=== PATIENT | male | born 1945 | race Caucasian/White ===

== ENCOUNTER 2016-05-01 20:59 | Observation (INO) ==
[2016-05-01] MEDS ORDERED: Ipratropium/Albuterol Neb 3 ML IH ONE (21:10)
[2016-05-01] MEDS ORDERED: Aspirin 81 MG TAB.CHEW PO ONE (21:11)
--- NOTE | 2016-05-01 21:12 | Emergency Department Note ---
Disposition Clinical Impression: Acute exacerbation of chronic obstructive airways disease Chest pain Qualifiers: Chest pain type: unspecified Qualified Code(s): R07.9 - Chest pain, unspecified Disposition: Admitted As Inpatient Condition: Good Time of Disposition: 23:04 SOB HPI - General Chief Complaint: ED Shortness of Breath/Dyspnea Stated Complaint: COPD Time Seen by Provider: 05/01/16 21:03 Source: EMS Limitations: no limitations Nursing Notes Reviewed: Yes Vital Signs Reviewed: Yes - History of Present Illness 70 old male history of CAD status post stents 1, COPD oxygen dependent on 2 L at baseline, presents with shortness of breath and chest pain. Patient chest pain approximately 2 hours prior to arrival in his midchest 5 out of 10 substernal nonradiating pressure. Patient reports that he got an albuterol treatment and 125 of Solu-Medrol in route and this made his breathing better. He does have a cough, and some shortness of breath. Recent admissions to the hospital, his last chest pain workup and stress test was one year ago. patient denies fever or chills, denies productive cough, Pt Subjective Complaint: shortness of breath Onset (ago): hour(s) (2) Severity: moderate Consistency/Duration: intermittent Improves with: oxygen Worsens with: nothing Known history of: COPD, congestive heart failure Associated symptoms: Reports: chest pain, wheezing, orthopnea. Denies: pain with inspiration, fever, cough, sputum production - Related Data Home Medications Medication Instructions Recorded Confirmed Aspirin 81 mg PO DAILY 10/05/14 05/02/16 Bumetanide [Bumex] 0.5 mg PO BID 10/05/14 05/02/16 Clopidogrel [Plavix] 75 mg PO DAILY 10/05/14 05/02/16 Isosorbide MONOnitrate (24 HR) 60 mg PO DAILY 10/05/14 05/02/16 [Imdur] Losartan [Cozaar] 25 mg PO DAILY 10/05/14 05/02/16 Metoprolol [Lopressor] 25 mg PO BID 10/05/14 05/02/16 Nitroglycerin 0.4 mg SL Q5MIN PRN 10/05/14 05/02/16 OxyCODONE/APAP 10/325 [Percocet 1 each PO Q6HR PRN 10/05/14 05/02/16 10/325] Pravastatin Sodium [Pravachol] 40 mg PO DAILY 10/05/14 05/02/16 Albuterol Sulfate [Proair Hfa] 2 puff IH BID 06/17/15 05/02/16 Budesonide/Formoterol 160/4.5 2 puff ID BID 06/17/15 05/02/16 [Symbicort 160/4.5] Previous Rx's Medication Instructions Recorded Aspirin 81 mg PO DAILY tab.chew 05/03/16 Ipratropium/Albuterol Neb [Duoneb] 3 ml IH [id number] PRN #0 inhsol 05/03/16 PredniSONE 10 mg PO DAILY #33 tablet 05/03/16 Allergies Allergy/AdvReac Type Severity Reaction Status Date / Time furosemide [From Lasix] Allergy Chest Pain Verified 05/02/16 09:27 hydrochlorothiazide Allergy Chest Pain Verified 05/02/16 09:27 Sulfa (Sulfonamide Allergy Hives Verified 05/02/16 09:27 Antibiotics) Hydromorphone [From Dilaudid] AdvReac Nausea Verified 05/02/16 09:27 All systems ED: reviewed and negative except as stated. Constitutional: Denies: fever, chills ENT ED: Denies: ear pain Cardiovascular: Reports: as per HPI, chest pain, dyspnea on exertion. Denies: palpitations Respiratory: Reports: dyspnea. Denies: cough Gastrointestinal: Denies: abdominal pain, nausea, vomiting Genitourinary: Denies: urgency, dysuria Musculoskeletal: Denies: back pain, neck pain Past Medical History - Past Medical History Attestation: Yes The following information was validated with the patient. Source: patient Medical history: Reports: COPD, coronary artery disease, GERD, hyperlipidemia, hypertension, myocardial infarction, pulmonary embolus Surgical history: Reports: angioplasty/stent Psychiatric history: Reports: no psych history - Social History Smoking Status: Current every day smoker Smokeless Tobacco Status: No Alcohol use: Reports: none Drug use: Reports: none Physical Exam Constitutional: alert and oriented, in NAD, mild hypoxia on vital review Neck: normal inspection, neck is supple, trachea midline Resp: Pursed lipped breathing and prolonged expiration phase, dimished aeration CV: RRR, no m/g/r, +2 pitting edema. GI: normal inspection, Soft, NTND, BS present Back: normal inspection, no tenderness to palpation Neuro: A&O3, no gross motor or sensory deficits bilaterally MSK: normal inspection, bilateral UE and LE with normal ROM Psych: normal mood, normal affect Skin: No rashes, skin warm, dry, intact - General Limitations: no limitations General appearance: alert Course Course Narrative: 70-year-old male with CHF and COPD likely exacerbation, also chest pain or rest 2 hours ago. Given that he is high risk of heart score of 5, likely admission for chest pain rule out to EKGs that shows no acute changes from baseline EKG - Reevaluation(s) Reevaluation #1: Patient's pain is improved, patient with concerns for COPD exacerbation also with chest pain in the setting of CAD history, admitted to hospital service Dr. Montrell Cisneros hemodynamically stable at time of ED disposition. Time: 23:04 Vital Signs Temperature 98.5 F 05/01/16 21:01 Pulse Rate 81 05/01/16 21:01 Respiratory Rate 18 05/01/16 21:01 Blood Pressure 168/82 05/01/16 21:01 O2 Sat by Pulse Oximetry 97 05/01/16 21:01 Temperature 97.4 F L 05/03/16 11:20 Pulse Rate 59 05/03/16 11:20 Respiratory Rate 16 05/03/16 11:20 Blood Pressure 122/67 05/03/16 11:20 O2 Sat by Pulse Oximetry 97 05/03/16 11:20 Oxygen Delivery Oxygen Delivery Nasal Cannula Shortness of Breath/Dyspnea - [facility] Narrative Medical decision making narrative: 70-year-old male with history of CAD chest pain at rest 1 hour prior to arrival admitted to medicine service for chest pain rule out and COPD exacerbation - Differential Diagnosis Likely: acute exacerbation of chronic obstructive airways disease, congestive heart failure - Medical Records Medical records reviewed: Yes I reviewed the patient's medical records. - Lab Data Lab results reviewed: Yes I reviewed the patient's lab results. Result diagrams: 05/03/16 03:52 05/03/16 03:52 Lab Results 05/01/16 05/01/16 05/01/16 Range/Units 21:27 21:27 21:27 WBC 7.8 (4.3-11.1) K/mcL RBC 4.52 (4.19-5.50) M/mcL Hgb 14.1 (12.9-16.9) g/dL Hct 42.2 (37.5-50.1) % MCV 93.4 (83.0-100.0) fL MCH 31.2 (28.0-33.3) pg MCHC 33.4 (31.6-35.5) g/dL RDW 12.4 (11.5-14.5) % Plt Count 170 (140-400) K/mcL MPV 10.1 (9.4-12.4) fL Immature Gran % 0.5 (0-4) % Seg Neutrophils % 58.1 % Lymphocytes % 28.6 % Monocytes % 8.8 % Eosinophils % 3.4 % Basophils % 0.6 % Neutrophils # 4.5 (1.6-8.9) K/mcL Lymphocytes # 2.2 (0.6-4.6) K/mcL Monocytes # 0.7 (0.0-1.3) K/mcL Eosinophils # 0.3 (0.0-0.6) K/mcL Basophils # 0.1 (0.0-0.2) K/mcL PT 10.9 (9.4-12.1) Seconds INR 1.0 APTT 31.4 (26.0-36.0) Seconds Sodium 139 (136-145) mEq/L Potassium 3.6 (3.5-4.5) mEq/L Chloride 104 (98-109) mEq/L Carbon Dioxide 25 (19-29) mEq/L BUN 14 (8-26) mg/dL Creatinine 1.06 (0.72-1.25) mg/dL Est GFR ( Amer) > 60 (> 60) Est GFR (Non-Af Amer) > 60 (> 60) BUN/Creatinine Ratio 13 (6-26) Glucose 106 H (70-99) mg/dL Calculated Osmolality 289 (280-300) Calcium 9.3 (8.6-10.8) mg/dL Troponin I (0-0.03) ng/mL B-Natriuretic Peptide (0-100) pg/mL 05/01/16 05/01/16 Range/Units 21:27 21:27 WBC (4.3-11.1) K/mcL RBC (4.19-5.50) M/mcL Hgb (12.9-16.9) g/dL Hct (37.5-50.1) % MCV (83.0-100.0) fL MCH (28.0-33.3) pg MCHC (31.6-35.5) g/dL RDW (11.5-14.5) % Plt Count (140-400) K/mcL MPV (9.4-12.4) fL Immature Gran % (0-4) % Seg Neutrophils % % Lymphocytes % % Monocytes % % Eosinophils % % Basophils % % Neutrophils # (1.6-8.9) K/mcL Lymphocytes # (0.6-4.6) K/mcL Monocytes # (0.0-1.3) K/mcL Eosinophils # (0.0-0.6) K/mcL Basophils # (0.0-0.2) K/mcL PT (9.4-12.1) Seconds INR APTT (26.0-36.0) Seconds Sodium (136-145) mEq/L Potassium (3.5-4.5) mEq/L Chloride (98-109) mEq/L Carbon Dioxide (19-29) mEq/L BUN (8-26) mg/dL Creatinine (0.72-1.25) mg/dL Est GFR ( Amer) (> 60) Est GFR (Non-Af Amer) (> 60) BUN/Creatinine Ratio (6-26) Glucose (70-99) mg/dL Calculated Osmolality (280-300) Calcium (8.6-10.8) mg/dL Troponin I 0.00 (0-0.03) ng/mL B-Natriuretic Peptide 38 (0-100) pg/mL - Radiology Data Radiology results reviewed: Yes I reviewed the patient's radiology results. Chest X-Ray 05/01/16 21:10 IMPRESSION: No acute cardiopulmonary disease. D/ / Ramone Joy MD / Ramone Joy MD Interpreting Provider: Ramone Joy MD - EKG Data EKG attestation: Yes I reviewed and interpreted this EKG. EKG shows normal: Reports: sinus rhythm Rate: Reports: normal (77 bpm ND 121 QRS 94 QTc 416) ST segment depression in: Reports: II When compared to previous EKG there are: no significant changes Interpretation: Reports: unchanged when compared to prior tracing (date) ( March 2012) Attestation Statement - Attestation Attestation: I examined this patient and my medical decision-making was reviewed with the [employer]/PA/Advanced Practice Nurse/Resident Physician. I agree with the documented findings, disposition and treatment plan as described except to the extent set forth below. 70 yo male presents with difficulty breathing and chest pain. +similar to previous COPD but had chest pain prior to arrival. PT states breathing and chest pain improved after breathing treatment by EMS and in ED. +diffuse wheezing with decreased air flow in all lung ramirez. initial trop negative and ECG did not have evidence of STEMI. Pt to be admitted for further care. Heart Score - Score History: Moderately Suspicious EKG: Non Specific repolarisation Disturbance Age: Greater than 65 Risk Factors: Equal/Greater than 3 risk factor or history of atherosclerotic disease Troponin: Less than normal limit HEART Score Total: 6
[2016-05-01 21:43] LABS: Prothrombin Time 10.9 Seconds (9.4-12.1)
[2016-05-01 21:45] LABS: Activated Partial Thrombo Time 31.4 Seconds (26.0-36.0)
[2016-05-01 21:46] LABS: Basophils # 0.1 K/mcL (0.0-0.2); Basophils % 0.6 %; Eosinophils # 0.3 K/mcL (0.0-0.6); Eosinophils % 3.4 %; Hematocrit 42.2 % (37.5-50.1); Hemoglobin 14.1 g/dL (12.9-16.9); Immature Granulocytes % 0.5 % (0-4); Lymphocytes # 2.2 K/mcL (0.6-4.6); Lymphocytes % 28.6 %; Mean Corpuscular HGB Conc 33.4 g/dL (31.6-35.5); Mean Corpuscular Hemoglobin 31.2 pg (28.0-33.3); Mean Corpuscular Volume 93.4 fL (83.0-100.0); Mean Platelet Volume 10.1 fL (9.4-12.4); Monocytes # 0.7 K/mcL (0.0-1.3); Monocytes % 8.8 %; Neutrophils # 4.5 K/mcL (1.6-8.9); Platelet Count 170 K/mcL (140-400); Red Blood Count 4.52 M/mcL (4.19-5.50); Red Cell Distribution Width 12.4 % (11.5-14.5); Segmented Neutrophils % 58.1 %
[2016-05-01 21:51] LABS: BUN/Creatinine Ratio 13 (6-26); Blood Urea Nitrogen 14 mg/dL (8-26); Calcium 9.3 mg/dL (8.6-10.8); Carbon Dioxide 25 mEq/L (19-29); Chloride 104 mEq/L (98-109); Glucose 106 mg/dL (70-99); Osmolality,Calculated 289 (280-300); Potassium 3.6 mEq/L (3.5-4.5); Sodium 139 mEq/L (136-145); eGFR For African Americans > 60 (> 60); eGFR For Non-African Americans > 60 (> 60)
--- NOTE | 2016-05-02 04:42 | Internal Med History&Physical ---
Date of Encounter: 05/02/16 Time of Encounter: 04:37 Assessment and Plan (1) Chest pain Current visit: No Status: Acute Atypical chest pain, negative troponins upon admission. We will follow trend of cardiac biomarkers. Continue with telemetry monitoring. Patient with significant cardiac history, status post a stent in LAD. Cardiology will be consulted for assistance. Qualifiers: Chest pain type: unspecified Qualified Code(s): R07.9 - Chest pain, unspecified (2) CAD (coronary artery disease) Current visit: No Status: Acute Qualifiers: Coronary Disease-Associated Artery/Lesion type: [place] artery [place] vs. transplanted heart: [place] heart Associated angina: with stable angina Qualified Code(s): I25.119 - Atherosclerotic heart disease of [place] coronary artery with unspecified angina pectoris (3) COPD (chronic obstructive pulmonary disease) Current visit: No Status: Acute Qualifiers: COPD type: emphysema Emphysema type: unspecified Qualified Code(s): J43.9 - Emphysema, unspecified (4) HTN (hypertension) Current visit: No Status: Chronic Qualifiers: Hypertension type: essential hypertension Qualified Code(s): I10 - Essential (primary) hypertension (5) Diabetes Current visit: No Status: Chronic Monitor fingerstick. Insulin therapy. 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 Rothman is a 71 year old male with past medical history of COPD on long-term oxygen therapy, hypertension, coronary artery disease S/P stent in LAD, chronic active smoker. Patient presented to the emergency department complaining of sudden onset substernal discomfort. Patient states that he was ready to without something to eat, when all of a sudden had a funny feeling in his chest , he described it as if something is stuck in his upper chest and his throat. He called his and decided to come to the emergency department. Upon admission to the ER his heart rate was 78/m, respiratory rate 18 per minute, blood pressure was 111/66, oxygen saturation was 93% on 2 L/m. Initial blood work revealed a terrific, 7.8, hemoglobin 14.1, hematocrit 42.2, platelet count 170,000. Sodium 139, potassium 2.6, chloride 104, bicarbonate 25, BUNs 14, creatinine 1.06, glucose 106. Troponin was 0.030, brain atretic peptide was 38 , chest x-ray was unremarkable. His last echo was done in June 2015, EF of 50%. The patient was admitted for further management and workup. Upon my encounter with the patient's was otherwise asymptomatic and he was breathing with nasal cannula. He follows up with her yearly with Dr. Rothman. Past Med Surg Social Fam HX - Past Medical History Medical history: COPD, coronary artery disease, GERD, hyperlipidemia, hypertension, myocardial infarction, pulmonary embolus Psychiatric history: no psych history - Past Surgical History Surgical History: angioplasty/stent - Social History Smoking Status: Current every day smoker Smokeless Tobacco Status: No Alcohol use: none Drug use: none - Family History Mother Living Status: Hx Family Cardiac Disorders: No Hx Family Respiratory Disorders: Yes Hx Family Cancer: No Hx Family GI Disorders: No Hx Family Endocrine Disorder: No Hx Family Neuromuscular Disorders: No Hx Family Neurologic Disorders: Yes Hx Family HEENT Disorders: No Hx Family Autoimmune Disorders: No Father Living Status: Hx Family Cardiac Disorders: Yes Hx Family Respiratory Disorders: No Hx Family Cancer: No Hx Family GI Disorders: Yes Hx Family Endocrine Disorder: Yes Hx Family Neuromuscular Disorders: No Hx Family Neurologic Disorders: No Hx Family HEENT Disorders: No Hx Family Autoimmune Disorders: No Internal Medicine - H&P: Meds Aspirin 81 mg PO DAILY 10/05/14 [History] Bumetanide [Bumex] 0.5 mg PO BID 10/05/14 [History] Clopidogrel [Plavix] 75 mg PO DAILY 10/05/14 [History] Isosorbide MONOnitrate (24 HR) [Imdur] 60 mg PO DAILY 10/05/14 [History] Losartan [Cozaar] 25 mg PO DAILY 10/05/14 [History] Metoprolol [Lopressor] 25 mg PO BID 10/05/14 [History] Nitroglycerin 0.4 mg SL Q5MIN PRN 10/05/14 [History] OxyCODONE/APAP 10/325 [Percocet 10/325] 1 each PO Q6HR PRN 10/05/14 [History] Pravastatin Sodium [Pravachol] 40 mg PO DAILY 10/05/14 [History] Albuterol Sulfate [Proair Hfa] 2 puff IH BID 06/17/15 [History] Budesonide/Formoterol 160/4.5 [Symbicort 160/4.5] 2 puff ID BID 06/17/15 [ History] Allergies furosemide [From Lasix] Allergy (Verified 06/17/15 16:54) Chest Pain hydrochlorothiazide Allergy (Verified 06/17/15 16:54) Chest Pain Sulfa (Sulfonamide Antibiotics) Allergy (Verified 06/17/15 16:54) Hives Hydromorphone [From Dilaudid] Adverse Reaction (Verified 09/22/14 11:13) Nausea All Systems PM: A 10-system review of systems was performed and is negative for pertinent findings except as documented above in the HPI. - Constitutional Constitutional: as per HPI, no chills, no fever(s), no night sweats - EENT Eyes: as per HPI, no change in vision, no discharge, no pain, no photophobia Ears: as per HPI, no ear discharge, no ear pain, no tinnitus Nose, mouth and throat: as per HPI, no dysphagia, no nasal discharge, no neck pain, no sore throat - Breasts Breasts: as per HPI - Cardiovascular Cardiovascular ROS IM: as per HPI, no chest pain, no diaphoresis, no dyspnea, no lightheadedness, no palpitations, no syncope - Respiratory Respiratory: as per HPI, no cough, no dyspnea, no wheezing, no excessive phlegm production - Gastrointestinal Gastrointestinal: as per HPI, no abdominal pain, no diarrhea, no hematemesis, no hematochezia, no melena, no nausea, no vomiting - Genitourinary Genitourinary ROS male: as per HPI - Musculoskeletal Musculoskeletal ROS IM: as per HPI, no numbness, no tingling - Integumentary Integumentary IM: as per HPI, no rash, no unusual bruising - Neurological Neurological ROS: as per HPI, no confusion, no convulsions, no focal weakness, no numbness, no tingling, no tremor(s) - Psychiatric Psychiatric: as per HPI - Endocrine Endocrine IM: as per HPI - Hematologic/Lymphatic Hematologic/Lymphatic: as per HPI, no easy bruising - Allergic/Immunologic Allergic/Immunologic: as per HPI - Constitutional Vitals: Temp Pulse Resp BP Pulse Ox 98.1 F 80 15 151/85 97 05/02/16 03:24 05/02/16 03:24 05/02/16 03:24 05/02/16 03:24 05/02/16 03:24 General appearance: Present: cooperative, A&O X 3, pleasant, obese Exam: breathing with a nasal cannula - Head Head exam: Present: atraumatic, normocephalic - Eye Eye exam: Present: PERRL, conjuntiva pink, sclera anicteric Pupils: Present: PERRL - Neck Neck exam general surgery: Present: supple, trachea midline. Absent: lymphadenopathy - Respiratory Respiratory exam: Present: decreased breath sounds. Absent: accessory muscle use, rales, rhonchi, wheezes - Cardiovascular Cardiovascular exam: Present: RRR, +S1, +S2. Absent: diastolic murmur, gallop, rubs, systolic murmur - GI/Abdominal GI/Abdominal exam: Present: normal bowel sounds, soft, no peritoneal signs. Absent: distended, tenderness - Extremities Exam Extremities exam: Present: warm, radial pulses palpable and symetrical. Absent : calf tenderness, cyanotic, pedal edema - Neurological Exam Neurological exam: Present: CN II-XII intact, oriented X3, no focal deficits. Absent: pronater drift, facial droop, speech deficit - Skin Skin exam: Present: dry, intact Internal Med - H&P Results - Labs CBC & Chem 7: 05/01/16 21:27 05/01/16 21:27
[2016-05-02] MEDS ORDERED: Naloxone 0.4 MG/ML INJ IVP PRN (04:44)
[2016-05-02] MEDS ORDERED: Acetaminophen 325 MG TABLET PO PRN (04:44)
[2016-05-02] MEDS ORDERED: *HR* Dextrose 50 % in Water (Syg) 50 ML SYRINGE IVP PRN (04:46)
[2016-05-02] MEDS ORDERED: D5% in Water 1,000 ML IVC PRN (04:46)
[2016-05-02] MEDS ORDERED: Dextrose Gel 15 GM PO PRN ×2 (04:46)
[2016-05-02] MEDS ORDERED: Nitroglycerin 0.4 MG TAB.SUBL SL PRN (04:46)
[2016-05-02] MEDS: *HR* Heparin 5,000 UNIT/ML VIAL SQ SCH ×2 (06:27→18:21)
[2016-05-02] MEDS: Insulin LISPRO 300 UNITS/3 ML VIAL SQ SCH ×2 (08:28→12:22)
[2016-05-02] MEDS ORDERED: Ipratropium/Albuterol Neb 3 ML IH PRN (11:01)
[2016-05-02] MEDS: Isosorbide MONOnitrate (24 HR) 60 MG TAB.ER.24H PO SCH (12:22)
[2016-05-02] MEDS: Aspirin 81 MG TAB.CHEW PO SCH (12:22)
--- NOTE | 2016-05-02 19:12 | Internal Med Progress Note ---
Date of Encounter: 05/02/16 Time of Encounter: 10:30 - Assessment and plan (1) Chest pain Current Visit: No Status: Acute Assessment and plan: Patient states that he feels like he has food stuck in the middle of his chest even when he is not eating. He believes that this is a mucous plug. He states he knows this is not cardiac chest pain and he refused his stress test today. He did have a stress test apparently in September 2014. His echo in June 2015 shows LVEF of 60% normal LV size and function, evidence of moderate diastolic dysfunction and LV, and dilated RV with normal function. His chest x-ray shows no acute cardiopulmonary disease. He does say that he is pain-free and states that this feeling like there is something stuck in his chest has been gone since he arrived in the emergency department yesterday. Telemetry Continue O2 by nasal cannula Monitor labs Monitor vital signs Nebulizers Qualifiers: Chest pain type: unspecified Qualified Code(s): R07.9 - Chest pain, unspecified (2) Acute exacerbation of chronic obstructive airways disease Current Visit: Yes Status: Acute Assessment and plan: Patient states he feels like he gets mucous plugs in his chest makes it feel like he has food stuck in his chest even when he is not eating. Patient's lungs are tight, very very diminished lung sounds in all ramirez. Patient states he is back to his baseline for his breathing. He does have home O2 although he only wears it at night. Currently he is having did maintain his sats with supplemental oxygen. His sats dropped to 88% when he did a 6 minute walk. I started steroids today. I discussed with him staying 1 more day so we could watch him because I thought he would feel at home and have to come right back. He did verbalize understanding. O2 via nasal cannula Monitor labs Prednisone by mouth Continue nebulizer treatments Monitor vital signs Monitor patient closely (3) CAD (coronary artery disease) Current Visit: No Status: Acute Assessment and plan: Chronic. Stable. Plan as above. Qualifiers: Coronary Disease-Associated Artery/Lesion type: [place] artery [place] vs. transplanted heart: [place] heart Associated angina: with stable angina Qualified Code(s): I25.119 - Atherosclerotic heart disease of [place] coronary artery with unspecified angina pectoris (4) COPD (chronic obstructive pulmonary disease) Current Visit: No Status: Acute Assessment and plan: Chronic. Plan as above. Qualifiers: COPD type: emphysema Emphysema type: unspecified Qualified Code(s): J43.9 - Emphysema, unspecified (5) HTN (hypertension) Current Visit: No Status: Chronic Assessment and plan: Chronic. Stable. Continue home medications. Qualifiers: Hypertension type: essential hypertension Qualified Code(s): I10 - Essential (primary) hypertension - Subjective Interval history: Patient was have stress test this morning, he refused. States that he knows this is noncardiac and he does not want a stress test. He said he had a stress test last year and does not want to go through that again today. He states that he feels like he gets food stuck in his chest even when he is not eating, and states that he believes that it is a mucous plug. Currently he denies shortness of breath or dyspnea. Patient states that he is back to his baseline breathing and that he is having no difficulty. He wears home O2 only at night. He gets it through [facility]. However today he is requiring 2 L of oxygen to maintain his sats above 94%. He reports a productive cough with a little bit of white sputum. Patient says that he feels like the midsternal chest feeling like something is stuck has been resolved since he got to the emergency department. He reports recent cold, URI symptoms and has been using his albuterol inhaler increasingly at home. His lungs are very tight, patient was not moving much air. I did discuss with patient that I would like for him to stay another day and let us watch him as I feel he will bounce right back since he will not be able to walk much or do much at home due to increasing shortness of breath. He did verbalize understanding. - Constitutional Vitals: Temp Pulse Resp BP Pulse Ox 97.5 F L 69 14 108/55 94 L 05/02/16 15:19 05/02/16 15:19 05/02/16 16:16 05/02/16 15:19 05/02/16 16:16 General appearance: Present: cooperative, A&O X 3, pleasant, obese - Head Head exam: Present: normal inspection - Eye Eye exam: Present: normal appearance, conjuntiva pink - ENT ENT exam: Present: mucous membranes moist, normal exam, normal external ear exam - Neck Neck exam general surgery: Present: normal inspection. Absent: lymphadenopathy , tenderness - Respiratory Respiratory exam: Present: decreased breath sounds. Absent: accessory muscle use, chest wall tenderness, respiratory distress Additional comments: Patient's lung sounds very diminished. Lung sounds tight. - Cardiovascular Cardiovascular exam: Present: RRR, +S1, +S2. Absent: diastolic murmur, systolic murmur - GI/Abdominal GI/Abdominal exam: Present: normal bowel sounds. Absent: hepatomegaly, splenomegaly, tenderness - Extremities Exam Extremities exam: Present: normal capillary refill, normal inspection, warm, radial pulses palpable and symetrical. Absent: mottling, pedal edema, tenderness - Neurological Exam Neurological exam: Present: alert, oriented X3, no focal deficits. Absent: facial droop, speech deficit Internal Medicine: Result - Labs CBC & Chem 7: 05/01/16 21:27 05/01/16 21:27 Labs: Cardiac Enzymes 05/02/16 05/02/16 Range/Units 05:10 10:53 Troponin I 0.00 0.00 (0-0.03) ng/mL - ABG Interpretation ABG results: PT/INR, D-dimer PT 10.9 Seconds (9.4-12.1) 05/01/16 21:27 Consult Discharge Plan - Plan Referrals: Peña Barber MD [Primary Care Provider] -
[2016-05-02] MEDS: predniSONE 20 MG TABLET PO SCH (21:57)
[2016-05-03 04:20] LABS: Basophils % 0.2 %; Hematocrit 46.1 % (37.5-50.1); Hemoglobin 14.9 g/dL (12.9-16.9); Immature Granulocytes % 0.4 % (0-4); Lymphocytes # 0.8 K/mcL (0.6-4.6); Lymphocytes % 7.2 %; Mean Corpuscular HGB Conc 32.3 g/dL (31.6-35.5); Mean Corpuscular Hemoglobin 30.7 pg (28.0-33.3); Mean Corpuscular Volume 94.9 fL (83.0-100.0); Mean Platelet Volume 10.3 fL (9.4-12.4); Monocytes # 0.2 K/mcL (0.0-1.3); Monocytes % 1.4 %; Neutrophils # 10.3 K/mcL (1.6-8.9); Platelet Count 185 K/mcL (140-400); Red Blood Count 4.86 M/mcL (4.19-5.50); Red Cell Distribution Width 12.3 % (11.5-14.5); Segmented Neutrophils % 90.8 %
[2016-05-03 04:40] LABS: BUN/Creatinine Ratio 25 (6-26); Calcium 9.1 mg/dL (8.6-10.8); Carbon Dioxide 26 mEq/L (19-29); Chloride 105 mEq/L (98-109); Glucose 148 mg/dL (70-99); Osmolality,Calculated 294 (280-300); Sodium 138 mEq/L (136-145); eGFR For African Americans > 60 (> 60); eGFR For Non-African Americans > 60 (> 60)
[2016-05-03 04:59] LABS: Blood Urea Nitrogen 28 mg/dL (8-26); Potassium 5.1 mEq/L (3.5-4.5)
[2016-05-03] MEDS ORDERED: Regadenoson 0.4 MG/5 ML SYRINGE IVP ONE (06:16)
[2016-05-03] MEDS: *HR* Heparin 5,000 UNIT/ML VIAL SQ SCH (06:38)
--- NOTE | 2016-05-03 08:15 | Electrocardiograph Report ---
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
[2016-05-03] MEDS: Aspirin 81 MG TAB.CHEW PO SCH (09:48)
[2016-05-03] MEDS: predniSONE 20 MG TABLET PO SCH (09:48)
[2016-05-03] MEDS: Isosorbide MONOnitrate (24 HR) 60 MG TAB.ER.24H PO SCH (09:48)
[2016-05-03 11:25] VITALS: BP 122/67
--- NOTE | 2016-05-03 11:35 | Discharge Summary ---
Date of Encounter: 05/03/16 Time of Encounter: 09:30 - Discharge Diagnosis (1) Acute exacerbation of chronic obstructive airways disease Priority: Primary Status: Acute Comments: History of COPD. Pt reports that he feels better today than yesterday. Lung sounds are diminished with faint expiratory wheezing in noel bases, improved aeration from yesterday's exam. WBC 11.3 today, most likely from steroids. Vitals are stable, he is normotensive, and afebrile. Pt does have home 02 and states that he has plenty of refills on his inhalers and does not need medication for his nebulizer. He states that he is back to baseline and his sats have increased to 97% on supplemental 02 via n/c. PT will be sent home on steroids. (2) Chest pain Priority: Secondary Status: Resolved Comments: Pt denies chest pain today. He denies feeling a foreign body sensation in his chest. Echo and stress from prior visits both were negative and pt refused stress test yesterday and today. Chest xray shows no acute cardiopulmonary disease. Troponins negative x 3. Pt has been up walking in his room and denies chest pain with walking. Qualifiers: Chest pain type: unspecified Qualified Code(s): R07.9 - Chest pain, unspecified (3) CAD (coronary artery disease) Priority: Secondary Status: Chronic Comments: Chronic. Stable. Continue home medications. Prior stress and echo negative, pt refused stress test today and tomorrow. Denies chest pain. Qualifiers: Coronary Disease-Associated Artery/Lesion type: [place] artery [place] vs. transplanted heart: [place] heart Associated angina: with stable angina Qualified Code(s): I25.118 - Atherosclerotic heart disease of [place] coronary artery with other forms of angina pectoris (4) COPD (chronic obstructive pulmonary disease) Priority: Secondary Status: Chronic Comments: Chronic. Plan as above. Qualifiers: COPD type: emphysema Emphysema type: unspecified Qualified Code(s): J43.9 - Emphysema, unspecified (5) HTN (hypertension) Priority: Secondary Status: Chronic Comments: Pt has been normotensive. Chronic. Continue home medications. Qualifiers: Hypertension type: essential hypertension Qualified Code(s): I10 - Essential (primary) hypertension - Discharge Medications Prescriptions: PredniSONE 10 mg PO DAILY #33 tablet Home Medications: Aspirin 81 mg PO DAILY 10/05/14 [History] Bumetanide [Bumex] 0.5 mg PO BID 10/05/14 [History] Clopidogrel [Plavix] 75 mg PO DAILY 10/05/14 [History] Isosorbide MONOnitrate (24 HR) [Imdur] 60 mg PO DAILY 10/05/14 [History] Losartan [Cozaar] 25 mg PO DAILY 10/05/14 [History] Metoprolol [Lopressor] 25 mg PO BID 10/05/14 [History] Nitroglycerin 0.4 mg SL Q5MIN PRN 10/05/14 [History] OxyCODONE/APAP 10/325 [Percocet 10/325] 1 each PO Q6HR PRN 10/05/14 [History] Pravastatin Sodium [Pravachol] 40 mg PO DAILY 10/05/14 [History] Albuterol Sulfate [Proair Hfa] 2 puff IH BID 06/17/15 [History] Budesonide/Formoterol 160/4.5 [Symbicort 160/4.5] 2 puff ID BID 06/17/15 [ History] Aspirin 81 mg PO DAILY tab.chew 05/03/16 [Rx] Ipratropium/Albuterol Neb [Duoneb] 3 ml IH [id number] PRN #0 inhsol 05/03/16 [Rx] PredniSONE 10 mg PO DAILY #33 tablet 05/03/16 [Rx] Allergies/Adverse Reactions: Allergies furosemide [From Lasix] Allergy (Verified 05/02/16 09:27) Chest Pain hydrochlorothiazide Allergy (Verified 05/02/16 09:27) Chest Pain Sulfa (Sulfonamide Antibiotics) Allergy (Verified 05/02/16 09:27) Hives Hydromorphone [From Dilaudid] Adverse Reaction (Verified 05/02/16 09:27) Nausea Date of admission: 05/01/16 23:07 Primary care physician: Peña Barber MD Consults: 05/02/16 04:44 Consult to Nurse Navigator [CONS] Routine Comment: 05/02/16 11:24 Consult to Historic Sites Registrar [CONS] Routine Reason for SW Consult: home 02 needs Discharging clinician: Svitlana Worthington Anticipated date of discharge: 05/03/16 - Patient Status Disposition: Home, Self-Care Condition: Good Functional capacity at discharge: independent ambulation Overall status at discharge: patient is back to baseline - Discharge Instructions Follow Up With: Peña Barber MD [Primary Care Provider] - Additional Instructions: Please follow up with your primary care physician in the next week for a follow up visit. Continue your normal home medications. Take your prednisone as written. Finish all of the pills and stay on schedule. Take your oxygen prescription to [facility] [place], [place] and get it filled today. Please rest for the next few days as we discussed. Return to the ER for any other problems or concerns, if your condition changes or becomes worse, or if you get a fever, nausea, vomiting, new pain, or for any other concerning symptoms. - Diet and Activity Activity: resume usual activities as tolerated, wear oxygen at all times Diet: advance to your usual diet Hospital course: Mr. Rothman is a 71 year old male with a past medical history of COPD, he uses oxygen at home when necessary, hypertension coronary artery disease with stent placement, and smoking. Patient presented to the emergency room 2 days ago complaining of sudden onset mid-sternal chest pressure pain. Patient states he was getting ready to eat, and all of a sudden had a funny feeling in his chest. He describes a foreign body sensation in the chest, he states that he feels that this is a mucous plug and not cardiac related. Patient did require supplemental oxygen to maintain his oxygen saturation in the low 90s during his visit. His saturation fell to 87% when he was walking. He said that he was ready to go home yesterday, however, he was unable to ambulate and had poor aeration and 02 saturations. He will be sent home with a prescription for continuous oxygen. His vitals have remained stable, he has been afebrile, and normotensive. He denies chest pain, and he refused his stress test the last 2 days. Today patient's lungs are diminished, expiratory wheezing faintly heard in bilateral bases. Yesterday he had poor aeration and very diminished lung sounds. Patient's white count today was 11.3, which I feel is primarily due to his prednisone usage. Patient will be sent home on a prednisone taper. Patient and I discussed that he should return if he has a fever, new chest pain , or any other concerning symptoms. Time spent discussing smoking cessation with patient: 3 to 10 minutes - Time Spent with Patient Total time spent providing and/or coordinating discharge services: - Constitutional Vitals: Temp Pulse Resp BP Pulse Ox 98.1 F 70 16 153/78 97 05/03/16 07:04 05/03/16 07:04 05/03/16 07:04 05/03/16 07:04 05/03/16 10:43 General appearance: Present: cooperative, A&O X 3, pleasant, answers questions appropriately - Head Head exam: Present: normal inspection - Eye Eye exam: Present: normal appearance, conjuntiva pink - ENT ENT exam: Present: mucous membranes moist, normal exam, normal oropharynx - Neck Neck exam general surgery: Present: normal inspection. Absent: lymphadenopathy , tenderness - Respiratory Respiratory exam: Present: decreased breath sounds, wheezes, tachypnea. Absent : chest wall tenderness, rales, respiratory distress, rhonchi, stridor Additional comments: She has faint expiratory wheezing in bilateral bases. - Cardiovascular Cardiovascular exam: Present: RRR, +S1, +S2. Absent: bradycardia, diastolic murmur, systolic murmur, tachycardia - GI/Abdominal GI/Abdominal exam: Present: normal bowel sounds, soft. Absent: tenderness - Extremities Exam Extremities exam: Present: normal capillary refill, normal inspection, warm, radial pulses palpable and symetrical. Absent: mottling, pedal edema, tenderness - Neurological Exam Neurological exam: Present: alert, no focal deficits. Absent: pronater drift, facial droop, speech deficit
[2016-05-03] MEDS ORDERED: Ipratropium/Albuterol Neb 3 ML IH ONE (12:18)
== END 2016-05-03 14:53 | disposition home or self-care (01) ==
LOC: 3BNU 20:59 → EMEROO 20:59 → 3BNU 23:54
PROVIDERS: ADMIT Internal Medicine; ATTEND Registered Nurse

== ENCOUNTER 2016-05-12 06:50 | Inpatient (IN) ==
[2016-05-12] MEDS ORDERED: Ipratropium/Albuterol Neb 3 ML IH ONE (06:58)
[2016-05-12] MEDS ORDERED: Ipratropium/Albuterol Neb 3 ML ONE (06:59)
[2016-05-12] MEDS ORDERED: 0.9 % Sodium Chloride 1,000 ML IVC ONE ×2 (07:09→09:54)
[2016-05-12 07:13] LABS: ABG Base Excess -0.8 mEq/L (-2.0 to 3.0); ABG HCO3 26.3 mEQ/L (21-27); ABG Oxygen Saturation 99 % (95-98); ABG PCO2 51 mmHg (35-45); ABG PH 7.32 pH Units (7.32-7.45); ABG PO2 144 mmHg (85-104); ABG TCO2 27.9 mEq/L (20-26); Blood Gas FiO2 100 %
[2016-05-12 07:18] LABS: Hematocrit 52.5 % (37.5-50.1); Mean Corpuscular HGB Conc 32.4 g/dL (31.6-35.5); Mean Corpuscular Hemoglobin 30.9 pg (28.0-33.3); Mean Corpuscular Volume 95.5 fL (83.0-100.0); Mean Platelet Volume 9.3 fL (9.4-12.4); Platelet Count 240 K/mcL (140-400); Red Cell Distribution Width 13.2 % (11.5-14.5)
[2016-05-12 07:21] LABS: Prothrombin Time 10.2 Seconds (9.4-12.1)
--- NOTE | 2016-05-12 07:21 | Emergency Department Note ---
Disposition Clinical Impression: Respiratory distress, JAIDEN (acute kidney injury), Lactic acid acidosis Sepsis Qualifiers: Sepsis type: sepsis due to unspecified organism Qualified Code(s): A41.9 - Sepsis, unspecified organism Right lower lobe pneumonia Qualifiers: Pneumonia type: due to unspecified organism Qualified Code(s): J18.1 - Lobar pneumonia, unspecified organism Disposition: Admitted As Inpatient Condition: Serious Time of Disposition: 10:00 SOB HPI - General Chief Complaint: ED Shortness of Breath/Dyspnea Stated Complaint: SHARRI Time Seen by Provider: 05/12/16 06:52 Source: patient, EMS, other Limitations: other Nursing Notes Reviewed: Yes Vital Signs Reviewed: Yes - History of Present Illness This is a 71-year-old male who presents with respiratory distress history of COPD ME PE and was recently discharged for chest pain admission (05/01/16) times one week ago. Patient has been on steroid treatment since discharge O2 during the day as well as night but usually uses at night prior to her previous mentioned. Patient's reports that yesterday evening this work of breathing dramatically increased and he sounded very congested. 4 hours ago patient reports his breathing got really bad and increases home O2 to 3L. patient was brought into the ED respiratory distress. EMS states that they found him in a tripod position with increased work of breathing and refuses to lay back stating it worsens ability to breathe. Pt Subjective Complaint: cough Onset (ago): hour(s) Context: recent illness Severity: severe Consistency/Duration: gradually worsening Improves with: upright position Worsens with: lying flat Known history of: COPD, congestive heart failure, PE Associated symptoms: Reports: fever, cough Cough Frequency: Intermittent Sputum Amount: None - Related Data Home oxygen amount: 2 liters Home Medications Medication Instructions Recorded Confirmed Aspirin 81 mg PO DAILY 10/05/14 05/02/16 Bumetanide [Bumex] 0.5 mg PO BID 10/05/14 05/02/16 Clopidogrel [Plavix] 75 mg PO DAILY 10/05/14 05/02/16 Isosorbide MONOnitrate (24 HR) 60 mg PO DAILY 10/05/14 05/02/16 [Imdur] Losartan [Cozaar] 25 mg PO DAILY 10/05/14 05/02/16 Metoprolol [Lopressor] 25 mg PO BID 10/05/14 05/02/16 Nitroglycerin 0.4 mg SL Q5MIN PRN 10/05/14 05/02/16 OxyCODONE/APAP 10/325 [Percocet 1 each PO Q6HR PRN 10/05/14 05/02/16 10/325] Pravastatin Sodium [Pravachol] 40 mg PO DAILY 10/05/14 05/02/16 Albuterol Sulfate [Proair Hfa] 2 puff IH BID 06/17/15 05/02/16 Budesonide/Formoterol 160/4.5 2 puff ID BID 06/17/15 05/02/16 [Symbicort 160/4.5] Previous Rx's Medication Instructions Recorded PredniSONE 10 mg PO DAILY #33 tablet 05/03/16 Allergies Allergy/AdvReac Type Severity Reaction Status Date / Time furosemide [From Lasix] Allergy Chest Pain Verified 05/12/16 07:05 hydrochlorothiazide Allergy Chest Pain Verified 05/12/16 07:05 Sulfa (Sulfonamide Allergy Hives Verified 05/12/16 07:05 Antibiotics) Hydromorphone [From Dilaudid] AdvReac Nausea Verified 05/12/16 07:05 All systems ED: reviewed and negative except as stated. Constitutional: Reports: fever, chills Cardiovascular: Reports: dyspnea on exertion, orthopnea, edema Respiratory: Reports: cough, dyspnea. Denies: wheezes Gastrointestinal: Denies: abdominal pain, nausea, vomiting, diarrhea Musculoskeletal: Denies: back pain Psychiatric: Reports: anxiety Endocrine: Reports: fatigue Past Medical History - Past Medical History Attestation: Yes The following information was validated with the patient. Source: patient, obtained from family Medical history: Reports: COPD, coronary artery disease, GERD, hyperlipidemia, hypertension, myocardial infarction, pulmonary embolus Surgical history: Reports: angioplasty/stent Psychiatric history: Reports: no psych history - Social History Smoking Status: Current every day smoker Smokeless Tobacco Status: No Alcohol use: Reports: none Drug use: Reports: none Physical Exam Vital Signs Temperature 97.3 F L 05/12/16 06:52 Pulse Rate 135 05/12/16 06:52 Respiratory Rate 34 05/12/16 06:52 Blood Pressure 180/85 05/12/16 06:52 O2 Sat by Pulse Oximetry 97 05/12/16 06:52 Temperature 97.3 F L 05/12/16 06:52 Pulse Rate 132 05/12/16 07:10 Respiratory Rate 30 05/12/16 07:10 Blood Pressure 180/85 05/12/16 06:52 O2 Sat by Pulse Oximetry 97 05/12/16 07:10 Oxygen Delivery Oxygen Delivery Bipap -General Appearance: Patient is a year-old male who is alert and oriented 3 and in acute respiratory distress, patient sitting upright tachypnea breathing shallowly and appears to have an difficult time taking deep breaths -Neurological exam: Cranial nerves II-12 intact, no focal deficits observed, strength equal 5/5 bilaterally in upper extremities. - Head Head exam: atraumatic, normocephalic, normal inspection - Eye Eye exam: Present: normal appearance, PERRL, EOMI, negative for scleral icterus negative for conjunctival pallor - ENT ENT exam: normal exam, normal oropharynx, mucous membranes moist - Neck Neck exam: Present: normal inspection, full ROM, trachea midline, negative JVD - Chest Chest inspection: Present: Patient has bilateral equal rise and fall of chest wall. Non-tender to palpation. - Respiratory Respiratory exam: Breath sounds clear to auscultation bilaterally upper lung ramirez but diminished in lower lung ramirez. Patient's tachypnea and has poor air movement Cardiovascular Cardiovascular exam: Present: Irregular regular rate, normal rhythm, normal heart sounds, without murmurs rubs or gallops. - Abdominal Exam Abdominal exam: Present: soft, nondistended, Non-Tender light and deep palpation in all quadrants. Bowel sounds normoactive throughout all 4 quadrants. Negative for hyper or hyperresonance. - Extremities Exam Extremities exam: Present: normal inspection, full ROM, pulses equal bilateral radials and pulses. No tenderness to lower extremities negative Homans sign, bilateral pedal edema 1+ pitting - Back Exam Back exam: Present: normal inspection, full ROM. Absent: CVA tenderness (R), CVA tenderness (L) - Psychiatric Psychiatric exam: Present: normal affect, normal mood - Skin Skin exam: Present: warm, dry, intact, normal color - General Limitations: other General appearance: anxious, in distress, other Course - Reevaluation(s) Reevaluation #1: Assessment: Patient concerning for PE, sepsis pneumonia, ACS/ME/CHF and aspiration, Time: 06:55 Reevaluation #2: Chest x-ray shows right lower lung opacities concerning for pneumonia, SIRS criteria positive for tachypnea and tachycardia. Sepsis workup has already been initiated Time: 07:29 Reevaluation #3: CXR: Extensive infiltrate right lung base new since prior examination Patient on BiPAP still has difficulty breathing. Patient states little better but he feels like he cannot take a deep breath. Patient should still tachycardic and tachypneic but shows no diaphoresis. ABG shows a metabolic acidosis with respiratory alkalosis. Patient's PCO2 is 51 and PO2 is 144. Plan is to out her BiPAP settings change I/E and lower O2. Time: 07:37 Additional Reevaluation(s): Patient continues to have difficulty on the BiPAP treatment calmed down and take deep breaths. Times to try Venturi mask since patient is not retaining carbon dioxide and oxygen level is very high and since patient is more anxious than anything else. Patient has received 0.5 Ativan which has not helped much and need to wait till patient's blood pressure increases to give anymore. Discussed patient admission with Dr. Michaels the pulmonologists and ICU who is accepted for further care. Patient tolerates the Venturi mask better than the BiPAP. We will continue to reassess - Consultations Consultation #1: Dr. Michaels Has accepted for admission 0813 hrs Time: 08:13 Vital Signs Temperature 97.3 F L 05/12/16 06:52 Pulse Rate 135 05/12/16 06:52 Respiratory Rate 34 05/12/16 06:52 Blood Pressure 180/85 05/12/16 06:52 O2 Sat by Pulse Oximetry 97 05/12/16 06:52 Temperature 98.6 F 05/12/16 12:16 Pulse Rate 96 05/12/16 13:00 Respiratory Rate 18 05/12/16 13:00 Blood Pressure 84/62 05/12/16 13:00 O2 Sat by Pulse Oximetry 99 05/12/16 13:00 Oxygen Delivery Oxygen Delivery Venti Mask Shortness of Breath/Dyspnea - Medical Records Medical records reviewed: Yes I reviewed the patient's medical records. - Lab Data Lab results reviewed: Yes I reviewed the patient's lab results. Lab results narrative: Short CBC 05/12/16 Range/Units 07:05 WBC 18.7 H (4.3-11.1) K/mcL Hgb 17.0 H (12.9-16.9) g/dL Hct 52.5 H (37.5-50.1) % Plt Count 240 (140-400) K/mcL Neutrophils # 14.6 H (1.6-8.9) K/mcL BMP 05/12/16 Range/Units 07:05 Sodium 142 (136-145) mEq/L Potassium 3.5 (3.5-4.5) mEq/L Chloride 102 (98-109) mEq/L Carbon Dioxide 26 (19-29) mEq/L BUN 26 (8-26) mg/dL Creatinine 1.30 H (0.72-1.25) mg/dL Glucose 113 H (70-99) mg/dL Calcium 8.9 (8.6-10.8) mg/dL Cardiac Enzymes 05/12/16 Range/Units 07:05 Troponin I 0.02 (0-0.03) ng/mL Laboratory Results - last 48 hr 05/12/16 05/12/16 05/12/16 07:04 07:05 07:05 WBC 18.7 H RBC 5.50 Hgb 17.0 H Hct 52.5 H MCV 95.5 MCH 30.9 MCHC 32.4 RDW 13.2 Plt Count 240 MPV 9.3 L Immature Gran % Test Not Performed Seg Neutrophils % 54.0 Band Neutrophils % 24.0 H Lymphocytes % 22.0 Monocytes % Test Not Performed Eosinophils % Test Not Performed Basophils % Test Not Performed Neutrophils # 14.6 H Lymphocytes # 4.1 Monocytes # Test Not Performed Eosinophils # Test Not Performed Basophils # Test Not Performed Platelet Estimate Normal PT INR APTT ABG pH 7.32 ABG pCO2 51 H ABG pO2 144 H ABG HCO3 26.3 ABG Total CO2 27.9 H ABG O2 Saturation 99 H ABG Base Excess -0.8 Blood Gas Modality BIPAP Inspired O2 100 Sodium 142 Potassium 3.5 Chloride 102 Carbon Dioxide 26 BUN 26 Creatinine 1.30 H Est GFR ( Amer) > 60 Est GFR (Non-Af Amer) 55 L BUN/Creatinine Ratio 20 Glucose 113 H Calculated Osmolality 300 Lactic Acid Calcium 8.9 Phosphorus 2.9 Magnesium 1.6 Troponin I 05/12/16 05/12/16 05/12/16 07:05 07:05 07:05 WBC RBC Hgb Hct MCV MCH MCHC RDW Plt Count MPV Immature Gran % Seg Neutrophils % Band Neutrophils % Lymphocytes % Monocytes % Eosinophils % Basophils % Neutrophils # Lymphocytes # Monocytes # Eosinophils # Basophils # Platelet Estimate PT 10.2 INR 1.0 APTT 20.6 L ABG pH ABG pCO2 ABG pO2 ABG HCO3 ABG Total CO2 ABG O2 Saturation ABG Base Excess Blood Gas Modality Inspired O2 Sodium Potassium Chloride Carbon Dioxide BUN Creatinine Est GFR ( Amer) Est GFR (Non-Af Amer) BUN/Creatinine Ratio Glucose Calculated Osmolality Lactic Acid 4.1 H* Calcium Phosphorus Magnesium Troponin I 0.02 Result diagrams: 05/12/16 07:05 05/12/16 11:46 Lab Results 05/12/16 05/12/16 05/12/16 Range/Units 07:04 07:05 07:05 WBC 18.7 H (4.3-11.1) K/mcL RBC 5.50 (4.19-5.50) M/mcL Hgb 17.0 H (12.9-16.9) g/dL Hct 52.5 H (37.5-50.1) % MCV 95.5 (83.0-100.0) fL MCH 30.9 (28.0-33.3) pg MCHC 32.4 (31.6-35.5) g/dL RDW 13.2 (11.5-14.5) % Plt Count 240 (140-400) K/mcL MPV 9.3 L (9.4-12.4) fL Immature Gran % Test Not Performed Seg Neutrophils % 54.0 % Band Neutrophils % 24.0 H (0-4) % Lymphocytes % 22.0 % Monocytes % Test Not Performed Eosinophils % Test Not Performed Basophils % Test Not Performed Neutrophils # 14.6 H (1.6-8.9) K/mcL Lymphocytes # 4.1 (0.6-4.6) K/mcL Monocytes # Test Not Performed Eosinophils # Test Not Performed Basophils # Test Not Performed Platelet Estimate Normal (Normal) PT (9.4-12.1) Seconds INR APTT (26.0-36.0) Seconds ABG pH 7.32 (7.32-7.45) pH Units ABG pCO2 51 H (35-45) mmHg ABG pO2 144 H (85-104) mmHg ABG HCO3 26.3 (21-27) mEQ/L ABG Total CO2 27.9 H (20-26) mEq/L ABG O2 Saturation 99 H (95-98) % ABG Base Excess -0.8 (-2.0 to 3.0) mEq/L Blood Gas Modality BIPAP Inspired O2 100 % Sodium 142 (136-145) mEq/L Potassium 3.5 (3.5-4.5) mEq/L Chloride 102 (98-109) mEq/L Carbon Dioxide 26 (19-29) mEq/L BUN 26 (8-26) mg/dL Creatinine 1.30 H (0.72-1.25) mg/dL Est GFR ( Amer) > 60 (> 60) Est GFR (Non-Af Amer) 55 L (> 60) BUN/Creatinine Ratio 20 (6-26) Glucose 113 H (70-99) mg/dL POC Glucose (58-89) Calculated Osmolality 300 (280-300) Lactic Acid (0.5-2.2) mmol/L Calcium 8.9 (8.6-10.8) mg/dL Phosphorus 2.9 (2.3-4.7) mg/dL Magnesium 1.6 (1.6-2.6) mg/dL Troponin I (0-0.03) ng/mL B-Natriuretic Peptide (0-100) pg/mL 05/12/16 05/12/16 05/12/16 Range/Units 07:05 07:05 07:05 WBC (4.3-11.1) K/mcL RBC (4.19-5.50) M/mcL Hgb (12.9-16.9) g/dL Hct (37.5-50.1) % MCV (83.0-100.0) fL MCH (28.0-33.3) pg MCHC (31.6-35.5) g/dL RDW (11.5-14.5) % Plt Count (140-400) K/mcL MPV (9.4-12.4) fL Immature Gran % Seg Neutrophils % % Band Neutrophils % (0-4) % Lymphocytes % % Monocytes % Eosinophils % Basophils % Neutrophils # (1.6-8.9) K/mcL Lymphocytes # (0.6-4.6) K/mcL Monocytes # Eosinophils # Basophils # Platelet Estimate (Normal) PT 10.2 (9.4-12.1) Seconds INR 1.0 APTT 20.6 L (26.0-36.0) Seconds ABG pH (7.32-7.45) pH Units ABG pCO2 (35-45) mmHg ABG pO2 (85-104) mmHg ABG HCO3 (21-27) mEQ/L ABG Total CO2 (20-26) mEq/L ABG O2 Saturation (95-98) % ABG Base Excess (-2.0 to 3.0) mEq/L Blood Gas Modality Inspired O2 % Sodium (136-145) mEq/L Potassium (3.5-4.5) mEq/L Chloride (98-109) mEq/L Carbon Dioxide (19-29) mEq/L BUN (8-26) mg/dL Creatinine (0.72-1.25) mg/dL Est GFR ( Amer) (> 60) Est GFR (Non-Af Amer) (> 60) BUN/Creatinine Ratio (6-26) Glucose (70-99) mg/dL POC Glucose (58-89) Calculated Osmolality (280-300) Lactic Acid 4.1 H* (0.5-2.2) mmol/L Calcium (8.6-10.8) mg/dL Phosphorus (2.3-4.7) mg/dL Magnesium (1.6-2.6) mg/dL Troponin I 0.02 (0-0.03) ng/mL B-Natriuretic Peptide (0-100) pg/mL 05/12/16 05/12/16 05/12/16 Range/Units 07:05 09:11 09:28 WBC (4.3-11.1) K/mcL RBC (4.19-5.50) M/mcL Hgb (12.9-16.9) g/dL Hct (37.5-50.1) % MCV (83.0-100.0) fL MCH (28.0-33.3) pg MCHC (31.6-35.5) g/dL RDW (11.5-14.5) % Plt Count (140-400) K/mcL MPV (9.4-12.4) fL Immature Gran % Seg Neutrophils % % Band Neutrophils % (0-4) % Lymphocytes % % Monocytes % Eosinophils % Basophils % Neutrophils # (1.6-8.9) K/mcL Lymphocytes # (0.6-4.6) K/mcL Monocytes # Eosinophils # Basophils # Platelet Estimate (Normal) PT (9.4-12.1) Seconds INR APTT (26.0-36.0) Seconds ABG pH (7.32-7.45) pH Units ABG pCO2 (35-45) mmHg ABG pO2 (85-104) mmHg ABG HCO3 (21-27) mEQ/L ABG Total CO2 (20-26) mEq/L ABG O2 Saturation (95-98) % ABG Base Excess (-2.0 to 3.0) mEq/L Blood Gas Modality Inspired O2 % Sodium (136-145) mEq/L Potassium (3.5-4.5) mEq/L Chloride (98-109) mEq/L Carbon Dioxide (19-29) mEq/L BUN (8-26) mg/dL Creatinine (0.72-1.25) mg/dL Est GFR ( Amer) (> 60) Est GFR (Non-Af Amer) (> 60) BUN/Creatinine Ratio (6-26) Glucose (70-99) mg/dL POC Glucose 115 H (58-89) Calculated Osmolality (280-300) Lactic Acid 3.1 H (0.5-2.2) mmol/L Calcium (8.6-10.8) mg/dL Phosphorus (2.3-4.7) mg/dL Magnesium (1.6-2.6) mg/dL Troponin I (0-0.03) ng/mL B-Natriuretic Peptide 192 H (0-100) pg/mL 05/12/16 05/12/16 05/12/16 Range/Units 10:00 11:46 11:46 WBC (4.3-11.1) K/mcL RBC (4.19-5.50) M/mcL Hgb (12.9-16.9) g/dL Hct (37.5-50.1) % MCV (83.0-100.0) fL MCH (28.0-33.3) pg MCHC (31.6-35.5) g/dL RDW (11.5-14.5) % Plt Count (140-400) K/mcL MPV (9.4-12.4) fL Immature Gran % Seg Neutrophils % % Band Neutrophils % (0-4) % Lymphocytes % % Monocytes % Eosinophils % Basophils % Neutrophils # (1.6-8.9) K/mcL Lymphocytes # (0.6-4.6) K/mcL Monocytes # Eosinophils # Basophils # Platelet Estimate (Normal) PT (9.4-12.1) Seconds INR APTT (26.0-36.0) Seconds ABG pH 7.19 L* D (7.32-7.45) pH Units ABG pCO2 78 H* D (35-45) mmHg ABG pO2 59 L (85-104) mmHg ABG HCO3 29.8 H (21-27) mEQ/L ABG Total CO2 32.2 H (20-26) mEq/L ABG O2 Saturation 83 L (95-98) % ABG Base Excess -0.8 (-2.0 to 3.0) mEq/L Blood Gas Modality VCT Inspired O2 100 % Sodium 142 (136-145) mEq/L Potassium 3.6 (3.5-4.5) mEq/L Chloride 106 (98-109) mEq/L Carbon Dioxide 23 (19-29) mEq/L BUN 28 H (8-26) mg/dL Creatinine 1.56 H (0.72-1.25) mg/dL Est GFR ( Amer) 54 L (> 60) Est GFR (Non-Af Amer) 44 L (> 60) BUN/Creatinine Ratio 18 (6-26) Glucose 112 H (70-99) mg/dL POC Glucose (58-89) Calculated Osmolality 300 (280-300) Lactic Acid 3.3 H (0.5-2.2) mmol/L Calcium 7.6 L (8.6-10.8) mg/dL Phosphorus (2.3-4.7) mg/dL Magnesium (1.6-2.6) mg/dL Troponin I (0-0.03) ng/mL B-Natriuretic Peptide (0-100) pg/mL 05/12/16 Range/Units 12:12 WBC (4.3-11.1) K/mcL RBC (4.19-5.50) M/mcL Hgb (12.9-16.9) g/dL Hct (37.5-50.1) % MCV (83.0-100.0) fL MCH (28.0-33.3) pg MCHC (31.6-35.5) g/dL RDW (11.5-14.5) % Plt Count (140-400) K/mcL MPV (9.4-12.4) fL Immature Gran % Seg Neutrophils % % Band Neutrophils % (0-4) % Lymphocytes % % Monocytes % Eosinophils % Basophils % Neutrophils # (1.6-8.9) K/mcL Lymphocytes # (0.6-4.6) K/mcL Monocytes # Eosinophils # Basophils # Platelet Estimate (Normal) PT (9.4-12.1) Seconds INR APTT (26.0-36.0) Seconds ABG pH 7.29 L (7.32-7.45) pH Units ABG pCO2 53 H D (35-45) mmHg ABG pO2 144 H (85-104) mmHg ABG HCO3 25.5 (21-27) mEQ/L ABG Total CO2 27.1 H (20-26) mEq/L ABG O2 Saturation 99 H (95-98) % ABG Base Excess -2.0 (-2.0 to 3.0) mEq/L Blood Gas Modality VCT Inspired O2 100 % Sodium (136-145) mEq/L Potassium (3.5-4.5) mEq/L Chloride (98-109) mEq/L Carbon Dioxide (19-29) mEq/L BUN (8-26) mg/dL Creatinine (0.72-1.25) mg/dL Est GFR ( Amer) (> 60) Est GFR (Non-Af Amer) (> 60) BUN/Creatinine Ratio (6-26) Glucose (70-99) mg/dL POC Glucose (58-89) Calculated Osmolality (280-300) Lactic Acid (0.5-2.2) mmol/L Calcium (8.6-10.8) mg/dL Phosphorus (2.3-4.7) mg/dL Magnesium (1.6-2.6) mg/dL Troponin I (0-0.03) ng/mL B-Natriuretic Peptide (0-100) pg/mL - Radiology Data Radiology results reviewed: Yes I reviewed the patient's radiology results. Chest X-Ray 05/12/16 06:55 IMPRESSION: Extensive infiltrate right lung base new since prior examination D/ / Bernardino Sen MD / Bernardino Sen MD Interpreting Provider: Bernardino Sen MD - EKG Data EKG attestation: Yes I reviewed and interpreted this EKG. EKG results narrative: EKG taken 05/12/2016 as sinus tachycardia at a rate of 1 37 bpm with occasional PVC every third beat, no acute ST elevations any leads and no depressions. See EKG shows sinus rhythm at 77 bpm with no signs of ischemia Critical Care Time Critical Care Time: Yes Total Critical Care Time: 30 Attestation: The high probability of a clinically significant, sudden or life threatening deterioration of the [resp] system(s) required my full and direct attention, intervention and personal management. The aggregate critical care time was [30] minutes. This time is in addition to time spent performing reported procedures but includes the following: [X] Data Review and interpretation [X] Patient assessment and monitoring of vital signs [X] Documentation [X] Medication orders and management Attestation Statement - Attestation Attestation: I personally interviewed and examined this patient and my medical decision- making was reviewed with the ED Resident Physician, Dr. Huertas. I agree with the documented findings, disposition and treatment plan as described except to the extent set forth below. Is a 71-year-old white male who presents to the emergency department by EMS this morning for worsening shortness of breath. Patient has a history of COPD, was hospitalized last week for 3 days for acute exacerbation of COPD as well as chest pain. Patient arrives in respiratory distress and hypoxia with room air sats in the low 80s. Increased work of breathing is noticed patient complaining of shortness of breath. Patient was immediately placed on supervisor pig machine, placed on BiPAP as well as continuous aerosols. Patient's arrives shortly after the patient stating that he had an upper respiratory infection progressed into a productive yellow sputum cough over the last 72 hours. Patient complained of subjective fevers at home to his and states "I have been trying to get him in here for the last 2 days". reports that patient was pacing in the house since 1 AM complaining of worsening shortness of breath. At this time patient denies any form of chest pain or pressure, no back pain or abdominal pain, no diaphoresis, no near- syncope or syncopal episodes at home prior to arrival. Patient is tachycardic on the monitor but in a sinus rhythm, and blood pressure is stable. Patient with improvement on BiPAP and room-air sats 97-98% throughout initial survey. On exam patient is having conversational dyspnea, tachypnea, increased work of breathing and unable to speak in full sentences. Patient states at home he is on 2 L nasal cannula oxygen at all times, and denies any prior history of requiring intubation. Patient states he is currently on steroids since his discharge from the hospital with his prior exacerbation of COPD but he is not currently on any antibiotics. Upon review of prior admission, it looks as if patient had serial troponins which were negative and patient refused stress testing or cardiac evaluation prior to discharge home. Portal chest x-ray done at bedside shows an extensive right lower lobe infiltrate. This appears consistent with the patient's complaints over the last 2-3 days. Blood cultures were obtained, IV antibiotics were initiated in the ED and IV fluids were also started. Patient's lactate was elevated at 4.1. Patient throughout ED course has had a stable blood pressure, persistent tachycardia, and improved work of breathing. Patient has been transitioned while in the ED from BiPAP to 40% Ventimask, O2 sats at this time are 93%. Repeat EKG shows sinus tachycardia at 130 bpm with occasional PVCs as well as PACs. Monitoring heart rate closely as my initial concern was whether the patient could have been in atrial fibrillation but serial EKGs show persistent sinus tachycardia which may be due to underlying fever or infection. Patient has IV fluids going at this time and receiving a liter bolus and if patient is still in the 2 hour point we will repeat the lactate at the end of IV fluid administration. Spoke with trimmer sorter who agrees to admit the patient to the ICU for further evaluation and treatment of his respiratory distress and right lower lobe pneumonia.
[2016-05-12 07:24] LABS: Activated Partial Thrombo Time 20.6 Seconds (26.0-36.0)
[2016-05-12 07:27] LABS: BUN/Creatinine Ratio 20 (6-26); Blood Urea Nitrogen 26 mg/dL (8-26); Calcium 8.9 mg/dL (8.6-10.8); Carbon Dioxide 26 mEq/L (19-29); Chloride 102 mEq/L (98-109); Glucose 113 mg/dL (70-99); Osmolality,Calculated 300 (280-300); Potassium 3.5 mEq/L (3.5-4.5); Sodium 142 mEq/L (136-145); eGFR For African Americans > 60 (> 60); eGFR For Non-African Americans 55 (> 60)
[2016-05-12] MEDS ORDERED: Levofloxacin 750 MG/150 ML 750 MG/150 ML BAG IVPB ONE (07:35)
[2016-05-12] MEDS ORDERED: Piperacillin/Tazobactam 3.375 GM in D5% in Water (Mini-Bag+) 100 ML IVPB ONE (07:35)
[2016-05-12] MEDS ORDERED: *HR* LORazepam 2 MG/ML VIAL IVP ONE (07:37)
[2016-05-12 07:52] LABS: Magnesium 1.6 mg/dL (1.6-2.6); Phosphorous 2.9 mg/dL (2.3-4.7)
[2016-05-12] MEDS ORDERED: Vancomycin 1,250 MG in D5% in Water 250 ML IVPB ONE (08:00)
[2016-05-12 08:11] LABS: Lymphocytes # 4.1 K/mcL (0.6-4.6); Neutrophils # 14.6 K/mcL (1.6-8.9); Platelet Estimate Normal (Normal)
[2016-05-12] MEDS ORDERED: *HR* Midazolam HCl 5 MG/5 ML VIAL IVP ONE ×2 (08:25→10:46)
--- NOTE | 2016-05-12 08:26 | Pulmonology History & Physical ---
<Ashkan Bhatt - Last Filed: 05/12/16 13:50> Date of Encounter: 05/12/16 Time of Encounter: 08:26 Assessment and Plan (1) Acute on chronic respiratory failure with hypoxia and hypercapnia Current visit: Yes Status: Acute Patient was recently discharged from this hospital more than a week ago for acute exacerbation of COPD, he was discharged home with po steroid taper. This time is also likely secondary to acute exacerbation of COPD from hospital- acquired pneumonia, chest x-ray from today showed extensive infiltrate at right lung base which is new compared to previous chest x-ray from 05/01/2016. Patient has a remote history of pulmonary embolism 20 years ago, his worsening shortness of breath was somewhat acute, started last night with blood-tinged sputum, he presented to the ER with tachycardia and tachypnea, well's score is 4 , pulmonary embolism is low on differential however we will obtain CTA of the chest once his renal function improves with lactated Ringer IV. Patient was not able to tolerate BiPAP therefore he was intubated in the ICU, will continue to treat his underlying bacterial pneumonia with IV antibiotics of vancomycin, Zosyn, and Levaquin, will start him on COPD regimen of DuoNeb, Symbicort, IV steroid, antibiotics, and oxygen support through mechanical ventilation. (2) Acute exacerbation of chronic obstructive pulmonary disease Current visit: Yes Status: Acute Likely secondary to underlying hospital-acquired bacterial pneumonia, will treat underlying infection with IV antibiotics, and will start him on COPD regimen of Symbicort, DuoNeb, IV steroid, antibiotics, and oxygen support. (3) Severe sepsis Current visit: Yes Status: Acute This is likely due to underlying hospital-acquired bacterial pneumonia, with lactic acidosis, hypotension and acute kidney injury, will continue lactated Ringer IV fluid, blood/sputum/urine cultures are pending at this time, will continue with broad-spectrum antibiotics of vancomycin, Zosyn, and Levaquin, will de-escalate antibiotics based on the results of cultures. (4) Hospital-acquired pneumonia Current visit: Yes Status: Acute Patient was discharged from this hospital more than a week ago now presented with worsening chest x-ray with right lower lobe new infiltrate, blood/sputum cultures and Legionella/strep pneumo urinary antigens pending at this time, currently patient is on vancomycin, Zosyn, Levaquin and we will de-escalate antibiotics based on the results of cultures. (5) Lactic acidosis Current visit: Yes Status: Acute Likely secondary to severe sepsis from underlying bacterial pneumonia, currently patient is on lactated ringer IV fluid, will continue with broad- spectrum IV antibiotics and will recheck the level in 6 hours. (6) JAIDEN (acute kidney injury) Current visit: Yes Status: Acute Patient has no history of chronic kidney disease, JAIDEN likely secondary to severe sepsis, will check urinalysis, avoid nephrotoxic agents, renally dose antibiotics, patient is currently on IV fluid, we will continue to closely monitor his renal function. (7) DVT prophylaxis Current visit: Yes Status: Acute Heparin subcutaneous 3 times a day. History of Present Illness Chief complaint: Acute on chronic hypercapnic and hypoxic respiratory failure HPI: Mr. Rothman is a 71 year old male with history of COPD, coronary artery disease, remote history of pulmonary embolism 20 years ago, and chronic diastolic CHF, who was recently discharged from this hospital more than a week ago for acute exacerbation of COPD, he was discharged home with po steroid taper. Patient states that he was having upper respiratory symptoms since 2 weeks ago and since few days ago it got progressively worse and last night he was having difficulty breathing compared to his baseline shortness of breath and he required more oxygen use at home, therefore he presented to the ER earlier this morning for progressively worsening of dyspnea. In the ER, ABG was obtained and it showed respiratory acidosis with elevated PCO2 however he was not able to tolerate BiPAP well therefore he was put on high flow oxygen nasal cannula, he was having labored breathing with tachypnea and accessory muscle use. Patient states that he has been having blood tinged productive cough for last few days, he has a remote history of pulmonary embolism 20 years ago, provoked versus unprovoked, patient was not sure what caused PE back then, he was on Coumadin for several months, no episodes of pulmonary embolism since then. In the ICU he still refused to wear the BiPAP and he was agreeable with intubation therefore he was intubated subsequently. Past Med Surg Social Fam HX - Past Medical History Medical history: COPD, coronary artery disease, GERD, hyperlipidemia, hypertension, myocardial infarction, pulmonary embolus Psychiatric history: no psych history - Past Surgical History Surgical History: angioplasty/stent - Social History Smoking Status: Current every day smoker Smokeless Tobacco Status: No Alcohol use: none Drug use: none - Family History Mother Living Status: Hx Family Cardiac Disorders: No Hx Family Respiratory Disorders: Yes Hx Family Cancer: No Hx Family GI Disorders: No Hx Family Endocrine Disorder: No Hx Family Neuromuscular Disorders: No Hx Family Neurologic Disorders: Yes Hx Family HEENT Disorders: No Hx Family Autoimmune Disorders: No Father Living Status: Hx Family Cardiac Disorders: Yes Hx Family Respiratory Disorders: No Hx Family Cancer: No Hx Family GI Disorders: Yes Hx Family Endocrine Disorder: Yes Hx Family Neuromuscular Disorders: No Hx Family Neurologic Disorders: No Hx Family HEENT Disorders: No Hx Family Autoimmune Disorders: No Medications and Allergies Aspirin 81 mg PO DAILY 10/05/14 [History] Bumetanide [Bumex] 0.5 mg PO BID 10/05/14 [History] Clopidogrel [Plavix] 75 mg PO DAILY 10/05/14 [History] Isosorbide MONOnitrate (24 HR) [Imdur] 60 mg PO DAILY 10/05/14 [History] Losartan [Cozaar] 25 mg PO DAILY 10/05/14 [History] Metoprolol [Lopressor] 25 mg PO BID 10/05/14 [History] Nitroglycerin 0.4 mg SL Q5MIN PRN 10/05/14 [History] OxyCODONE/APAP 10/325 [Percocet 10/325] 1 tab PO Q6HR PRN 10/05/14 [History] Pravastatin Sodium [Pravachol] 40 mg PO DAILY 10/05/14 [History] Albuterol Sulfate [Proair Hfa] 2 puff IH BID 06/17/15 [History] Budesonide/Formoterol 160/4.5 [Symbicort 160/4.5] 2 puff ID BID 06/17/15 [ History] PredniSONE 10 mg PO DAILY #33 tablet 05/03/16 [Rx] Allergies furosemide [From Lasix] Allergy (Verified 05/12/16 07:05) Chest Pain hydrochlorothiazide Allergy (Verified 05/12/16 07:05) Chest Pain Sulfa (Sulfonamide Antibiotics) Allergy (Verified 05/12/16 07:05) Hives Hydromorphone [From Dilaudid] Adverse Reaction (Verified 05/12/16 07:05) Nausea All Systems: A 10-system review of systems was performed and is negative for pertinent findings except as documented above in the HPI. Review of Systems: Patient admits blood-tinged productive cough and worsening shortness of breath , he denies fever, chills, headache, chest pain, nausea, vomiting, abdominal pain, diarrhea, or dysuria. Physical Examination Vital Signs: Vital Signs, Last 4 Hours Temp Pulse Resp BP Pulse Ox 05/12/16 08:22 132 30 117/58 92 05/12/16 07:10 132 30 97 05/12/16 06:56 33 180/85 95 05/12/16 06:52 97.3 F L 135 34 180/85 97 General appearance: other (Mild respiratory distress) Eyes: nonicteric ENT: oropharynx moist Neck: supple Effort: mildly labored Inspection: normal Auscultation: bilateral: diminished breath sounds (At base, diffusely), wheezes (Diffusely in upper field) Cardiovascular: other (Regular rhythm but tachycardic) Gastrointestinal: normoactive bowel sounds, soft, non-tender, non-distended Integumentary: normal, other (No rash, erythema or cellulitis) Extremities: no cyanosis, no edema, no clubbing, pink and warm, pulses normal, other (Capillary refill less than 2 seconds) Musculoskeletal: no deformities non-focal exam, pupils equal and round, CN II-XII normal, motor strength normal and symmetric mood appropriate, affect normal Results - Laboratory Findings CBC and BMP: 05/12/16 07:05 05/12/16 11:46 ABG ABG pH 7.32 pH Units (7.32-7.45) 05/12/16 07:04 ABG pCO2 51 mmHg (35-45) H 05/12/16 07:04 ABG pO2 144 mmHg (85-104) H 05/12/16 07:04 ABG O2 Saturation 99 % (95-98) H 05/12/16 07:04 PT/INR, D-dimer PT 10.2 Seconds (9.4-12.1) 05/12/16 07:05 Abnormal lab findings: Abnormal lab results WBC 18.7 K/mcL (4.3-11.1) H 05/12/16 07:05 Hgb 17.0 g/dL (12.9-16.9) H 05/12/16 07:05 Hct 52.5 % (37.5-50.1) H 05/12/16 07:05 MPV 9.3 fL (9.4-12.4) L 05/12/16 07:05 Band Neutrophils % 24.0 % (0-4) H 05/12/16 07:05 Neutrophils # 14.6 K/mcL (1.6-8.9) H 05/12/16 07:05 APTT 20.6 Seconds (26.0-36.0) L 05/12/16 07:05 ABG pCO2 51 mmHg (35-45) H 05/12/16 07:04 ABG pO2 144 mmHg (85-104) H 05/12/16 07:04 ABG Total CO2 27.9 mEq/L (20-26) H 05/12/16 07:04 ABG O2 Saturation 99 % (95-98) H 05/12/16 07:04 Creatinine 1.30 mg/dL (0.72-1.25) H 05/12/16 07:05 Est GFR (Non-Af Amer) 55 (> 60) L 05/12/16 07:05 Glucose 113 mg/dL (70-99) H 05/12/16 07:05 Lactic Acid 4.1 mmol/L (0.5-2.2) H* 05/12/16 07:05 <Jannette Michaels M - Last Filed: 05/12/16 23:55> Date of Encounter: 05/12/16 History of Present Illness HPI: Mr. Rothman is a 71 year old male All Systems: A 10-system review of systems was performed and is negative for pertinent findings except as documented above in the HPI. Physical Examination Vital Signs: Vital Signs, Last 4 Hours Temp Pulse Resp BP Pulse Ox 05/12/16 17:00 61 17 87/36 96 05/12/16 16:32 20 85/71 96 05/12/16 16:00 92 20 85/71 96 05/12/16 15:42 98.1 F 05/12/16 15:00 98 20 77/42 99 05/12/16 14:00 99 16 78/55 99 05/12/16 13:59 18 84/62 99 Results - Laboratory Findings CBC and BMP: 05/12/16 07:05 05/12/16 18:10 ABG ABG pH 7.29 pH Units (7.32-7.45) L 05/12/16 12:12 ABG pCO2 53 mmHg (35-45) H D 05/12/16 12:12 ABG pO2 144 mmHg (85-104) H 05/12/16 12:12 ABG O2 Saturation 99 % (95-98) H 05/12/16 12:12 PT/INR, D-dimer PT 10.2 Seconds (9.4-12.1) 05/12/16 07:05 Abnormal lab findings: Abnormal lab results WBC 18.7 K/mcL (4.3-11.1) H 05/12/16 07:05 Hgb 17.0 g/dL (12.9-16.9) H 05/12/16 07:05 Hct 52.5 % (37.5-50.1) H 05/12/16 07:05 MPV 9.3 fL (9.4-12.4) L 05/12/16 07:05 Band Neutrophils % 24.0 % (0-4) H 05/12/16 07:05 Neutrophils # 14.6 K/mcL (1.6-8.9) H 05/12/16 07:05 APTT 20.6 Seconds (26.0-36.0) L 05/12/16 07:05 ABG pH 7.29 pH Units (7.32-7.45) L 05/12/16 12:12 ABG pCO2 53 mmHg (35-45) H D 05/12/16 12:12 ABG pO2 144 mmHg (85-104) H 05/12/16 12:12 ABG Total CO2 27.1 mEq/L (20-26) H 05/12/16 12:12 ABG O2 Saturation 99 % (95-98) H 05/12/16 12:12 BUN 28 mg/dL (8-26) H 05/12/16 11:46 Creatinine 1.56 mg/dL (0.72-1.25) H 05/12/16 11:46 Est GFR ( Amer) 54 (> 60) L 05/12/16 11:46 Est GFR (Non-Af Amer) 44 (> 60) L 05/12/16 11:46 Glucose 112 mg/dL (70-99) H 05/12/16 11:46 POC Glucose 115 (58-89) H 05/12/16 09:28 Lactic Acid 3.3 mmol/L (0.5-2.2) H 05/12/16 11:46 Calcium 7.6 mg/dL (8.6-10.8) L 05/12/16 11:46 B-Natriuretic Peptide 192 pg/mL (0-100) H 05/12/16 07:05 - Attending Attestation I examined this patient and my medical decision-making was reviewed with the LEAD CARPENTER/PA/Advanced Practice Nurse/Resident Physician. I agree with the documented findings, disposition and treatment plan as described except to the extent set forth below. Patient seen and examined. Labs, radiology, chart personally reviewed. 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 I expalined to him he will need invasive mechanical ventilation and he agreed, knowing there are risks with that and even . Patient was intubated and has evidence of PEEPi and vent was adjusted with higher PEEP first and then lowered his FIO2. Patient will be treated for pneumonia with hospital aquired with even possible bronchoscopy. Cardiovascular: Suspect septic shock with source possible pneumonia. Fluid resuscitation and pressors. Monitor lactic acid level. Patient skin is called and capillary perfusion is not normal. GI: Nutrition per dietary and GI prophylaxis per routine Heme: DVT prophylaxis per routine. When renal funtion improves, will consider CTA. ID: Continue antibiotics and plan to de-escalation Renal; urine out put and renal funtion reviewed Endorcine: blood glucose is monitored Lines: all lines checked and no evidence of infections Skin: skin care to prevent pressure ulcers per nursing routine care I spent 40 min of Critical Care time with this patient. It involved decision making of high complexity to assess, manipulate, and support vital organ system failure and/or to prevent further life threatening deterioration of the patient' s condition. The time involved in the performance of separately reportable procedures was not counted toward critical care time.
[2016-05-12] MEDS ORDERED: methylPREDNISolone 125 MG/2 ML VIAL IVP ONE (09:05)
[2016-05-12] MEDS ORDERED: Ondansetron 4 MG/2 ML VIAL IVP PRN (09:25)
[2016-05-12] MEDS ORDERED: Naloxone 0.4 MG/ML INJ IVP PRN (09:25)
[2016-05-12] MEDS ORDERED: *HR* FentaNYL (PF) 100 MCG/2 ML VIAL ONE (09:47)
[2016-05-12] MEDS ORDERED: 0.9 % Sodium Chloride 1,000 ML ONE (09:49)
[2016-05-12] MEDS ORDERED: Vancomycin (wt based) 1,000 MG VIAL IVPB SCH (10:00)
[2016-05-12 10:35] LABS: ABG Base Excess -0.8 mEq/L (-2.0 to 3.0); ABG HCO3 29.8 mEQ/L (21-27); ABG Oxygen Saturation 83 % (95-98); ABG PO2 59 mmHg (85-104); ABG TCO2 32.2 mEq/L (20-26)
[2016-05-12 10:36] LABS: ABG PCO2 78 mmHg (35-45); ABG PH 7.19 pH Units (7.32-7.45)
[2016-05-12 10:37] LABS: Blood Gas FiO2 100 %
[2016-05-12] MEDS ORDERED: *HR* Propofol 200 MG/20 ML VIAL IVP ONE (10:46)
--- NOTE | 2016-05-12 10:58 | Procedure Note ---
<Ashkan Bhatt - Last Filed: 05/12/16 14:27> Date of procedure: 05/12/16 Pre-op diagnosis: Acute on chronic respiratory failure Post-op diagnosis: same Procedure: Endotracheal Intubation Date: 05/12/2016 Time: 9:45 AM Indication: Respiratory Distress Resident: Dr. Bhatt Attending: Dr. Michaels A time-out was completed verifying correct patient, procedure, site, positioning , and special equipment if applicable. The patient was placed in a flat position. Sedation was obtained using Versed 3 mg, and additionally with Propofol 10 mg. The patient was easily ventilated using an ambu bag. The glidescope was used and inserted into the oropharynx at which time there was a Grade 1 view of the vocal cords. A 7.5-slovak endotracheal tube was inserted and visualized going through the vocal cords. The stylette was removed. Colorimetric change was visualized on the CO2 meter. Breath sounds were heard in both lung ramirez equally. The endotracheal tube was placed at 24 cm, measured at the teeth. Dr. Michaels was present for the entire procedure. A chest x-ray was ordered to assess for pneumothorax and verify endotrachealtube placement, it showed approximately 5 cm above the tana, no pneumothorax. The patient tolerated the procedure well and there were no complications. 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 Bhatt without immediate complications and ET tube was confirmed with chest x-ray. Correction for the sedation was given IV. Versed total 5 mg and Propofol total 10 mL.
[2016-05-12] MEDS: FentaNYL (PF) 1,000 MCG in 0.9 % Sodium Chloride 80 ML IVC SCH ×2 (11:18→18:29)
[2016-05-12] MEDS: Ringers Solution, Lactated 1,000 ML IVC SCH ×2 (11:20→18:28)
[2016-05-12] MEDS: Pantoprazole 40 MG VIAL IVP SCH (11:23)
[2016-05-12] MEDS: *HR* Heparin 5,000 UNIT/ML VIAL SQ SCH ×3 (11:24→21:45)
[2016-05-12] MEDS: *HR* Acetylcysteine 20% 600 MG/3 ML ORAL SYRINGE PO SCH ×2 (11:48→22:51)
[2016-05-12] MEDS: Ipratropium/Albuterol Neb 3 ML IH SCH ×4 (11:49→23:45)
[2016-05-12 12:08] LABS: Calcium 7.6 mg/dL (8.6-10.8)
[2016-05-12 12:11] LABS: Potassium 3.6 mEq/L (3.5-4.5)
[2016-05-12 12:28] LABS: ABG HCO3 25.5 mEQ/L (21-27); ABG Oxygen Saturation 99 % (95-98); ABG PCO2 53 mmHg (35-45); ABG PH 7.29 pH Units (7.32-7.45); ABG PO2 144 mmHg (85-104); ABG TCO2 27.1 mEq/L (20-26)
[2016-05-12 12:29] LABS: Blood Gas FiO2 100 %
[2016-05-12 13:41] LABS: Bilirubin,Urine Negative (Negative); Blood,Urine Negative (Negative); Color,Urine Dark Yellow (Yellow); Glucose,Urine (UA) Normal (Normal); Ketones,Urine Negative (Negative); Leukocyte Esterase,Urine Negative (Negative); Nitrite,Urine Negative (Negative); PH,Urine 5.5 pH Units (5.0-8.0); Protein,Urine Trace mg/dL (Neg-Trace); Specific Gravity,Urine 1.024 (1.010-1.025); Urobilinogen,Urine Normal (Normal)
[2016-05-12] MEDS ORDERED: Dexmedetomidine HCl 400 MCG/100 ML MLS IVC SCH (13:45)
[2016-05-12] MEDS ORDERED: Magnesium Sulfate 2 GM in D5% in Water 100 ML IVPB ONE (13:46)
[2016-05-12 13:54] LABS: Clarity,Urine Slightly Hazy (Clear)
[2016-05-12] MEDS: Piperacillin/Tazobactam 3.375 GM in D5% in Water (Mini-Bag+) 100 ML IVPB SCH (15:07)
--- NOTE | 2016-05-12 16:23 | Electrocardiograph Report ---
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
[2016-05-12] MEDS: Norepinephrine 4 MG in D5% in Water 250 ML IVC SCH ×2 (16:37→20:00)
[2016-05-12] MEDS: methylPREDNISolone 125 MG/2 ML VIAL IVP SCH (16:41)
--- NOTE | 2016-05-12 16:49 | Procedure Note ---
<Ashkan Bhatt - Last Filed: 05/12/16 16:46> Date of procedure: 05/12/16 Pre-op diagnosis: Septic shock Post-op diagnosis: same Procedure: Central Venous Catheter (CVC, Central Line) Placement Date: 05/12/16 Time: 4:20 PM Indication: Pressor support for septic shock Resident: Dr. Bhatt Attending: Dr. Michaels A time-out was completed verifying correct patient, procedure, site, positioning , and special equipment if applicable. The patient was placed in a dependent position appropriate for central line placement based on the vein to be cannulated. The patients left groin was prepped and draped in sterile fashion. Patient was under IV sedation with fentanyl and precedex. A triple lumen 7- [place] Cordis catheter was introduced into the the common femoral vein using the Seldinger technique and under ultrasound guidance. The catheter was threaded smoothly over the guide wire and appropriate blood return was obtained. Each lumen of the catheter was evacuated of air and flushed with sterile saline. The catheter was then sutured in place to the skin and a sterile dressing applied. Perfusion to the extremity distal to the point of catheter insertion was checked and found to be adequate. Dr. Michaels was present for the entire procedure. Estimated Blood Loss: 10 cc. The patient tolerated the procedure well and there were no complications. Anesthesia: IV sedation Surgeon: Jannette Michaels Permit Specialist: Ashkan Bhatt Estimated blood loss (cc): 10 Pathology: none sent Condition: stable Disposition: ICU <Jannette Michaels - Last Filed: 05/12/16 17:08> Procedure: I have personally supervised Dr. Bhatt placing femoral line in the left side of groin without immediate complications for the shock and need pressors.
--- NOTE | 2016-05-12 16:53 | Electrocardiograph Report ---
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
[2016-05-12 18:34] LABS: Calcium 7.9 mg/dL (8.6-10.8)
[2016-05-12 18:36] LABS: Potassium 5.6 mEq/L (3.5-4.5)
[2016-05-13] MEDS: methylPREDNISolone 125 MG/2 ML VIAL IVP SCH ×4 (00:40→16:56)
[2016-05-13] MEDS: Piperacillin/Tazobactam 3.375 GM in D5% in Water (Mini-Bag+) 100 ML IVPB SCH ×3 (00:40→16:55)
[2016-05-13 03:23] LABS: Basophils # 0.2 K/mcL (0.0-0.2); Basophils % 0.7 %; Immature Granulocytes % 3.4 % (0-4); Lymphocytes # 0.6 K/mcL (0.6-4.6); Lymphocytes % 2.6 %; Mean Corpuscular HGB Conc 32.4 g/dL (31.6-35.5); Mean Corpuscular Hemoglobin 31.5 pg (28.0-33.3); Mean Corpuscular Volume 97.2 fL (83.0-100.0); Mean Platelet Volume 9.7 fL (9.4-12.4); Monocytes % 1.6 %; Neutrophils # 19.5 K/mcL (1.6-8.9); Platelet Count 171 K/mcL (140-400); Red Blood Count 4.63 M/mcL (4.19-5.50); Red Cell Distribution Width 13.3 % (11.5-14.5); Segmented Neutrophils % 91.7 %
[2016-05-13 03:25] LABS: Hemoglobin 14.6 g/dL (12.9-16.9); Monocytes # 0.3 K/mcL (0.0-1.3)
[2016-05-13 03:35] LABS: Potassium 5.4 mEq/L (3.5-4.5)
[2016-05-13] MEDS: Ipratropium/Albuterol Neb 3 ML IH SCH ×6 (04:00→23:53)
[2016-05-13] MEDS: Ringers Solution, Lactated 1,000 ML IVC SCH (04:05)
[2016-05-13 04:11] LABS: Platelet Estimate Normal (Normal)
[2016-05-13] MEDS: 0.9 % Sodium Chloride 1,000 ML IVC SCH ×3 (04:50→21:25)
[2016-05-13] MEDS: *HR* Heparin 5,000 UNIT/ML VIAL SQ SCH ×3 (05:22→21:26)
[2016-05-13] MEDS: FentaNYL (PF) 1,000 MCG in 0.9 % Sodium Chloride 80 ML IVC SCH (05:33)
[2016-05-13] MEDS: Norepinephrine 4 MG in D5% in Water 250 ML IVC SCH ×3 (05:34→16:48)
[2016-05-13 07:02] LABS: ABG Base Excess -6.4 mEq/L (-2.0 to 3.0); ABG HCO3 21.4 mEQ/L (21-27); ABG Oxygen Saturation 90 % (95-98); ABG PCO2 50 mmHg (35-45); ABG PH 7.24 pH Units (7.32-7.45); ABG PO2 68 mmHg (85-104); ABG TCO2 22.9 mEq/L (20-26); Blood Gas FiO2 60 %
--- NOTE | 2016-05-13 07:15 | Pulmonology Progress Note ---
<Ashkan Bhatt - Last Filed: 05/13/16 09:16> Date of Encounter: 05/13/16 Time of Encounter: 07:15 Assessment and Plan (1) Acute on chronic respiratory failure with hypoxia and hypercapnia Current Visit: Yes Status: Acute Patient was recently discharged from this hospital more than a week ago for acute exacerbation of COPD, he was discharged home with po steroid taper. This time is also likely secondary to acute exacerbation of COPD from hospital- acquired pneumonia, chest x-ray showed extensive infiltrate at right lung base which is new compared to previous chest x-ray from 05/01/2016. Patient was not able to tolerate BiPAP therefore he was intubated in the ICU, will continue to treat his underlying bacterial pneumonia with IV antibiotics of vancomycin, Zosyn, and Levaquin, started him on COPD regimen of DuoNeb, Symbicort, IV steroid, antibiotics, and oxygen support through mechanical ventilation. (2) Acute exacerbation of chronic obstructive pulmonary disease Current Visit: Yes Status: Acute Likely secondary to underlying hospital-acquired bacterial pneumonia, will treat underlying infection with IV antibiotics, and will start him on COPD regimen of Symbicort, DuoNeb, IV steroid, antibiotics, and oxygen support. (3) JAIDEN (acute kidney injury) Current Visit: Yes Status: Acute Patient's renal function continued to worsen with oliguria, he has no history of chronic kidney disease, JAIDEN likely secondary to septic shock, he was started on levophed yesterday, will check urinalysis with reflex microscopy, urine electrolytes and renal ultrasound, avoid nephrotoxic agents, renally dose antibiotics, patient is currently on IV normal saline fluid, we will continue to closely monitor his renal function. (4) Septic shock Current Visit: Yes Status: Acute This is likely due to underlying hospital-acquired bacterial pneumonia, with lactic acidosis, hypotension requiring pressor support and acute kidney injury, currently he is on levophed, will continue normal saline IV fluid, blood/sputum/ urine cultures are negative at this time, will continue with broad-spectrum with vancomycin, Zosyn, and Levaquin, will de-escalate antibiotics after 48 hours of culture result. (5) Hospital-acquired pneumonia Current Visit: Yes Status: Acute Patient was discharged from this hospital more than a week ago now presented with worsening chest x-ray with right lower lobe new infiltrate, blood/sputum cultures and Legionella/strep pneumo urinary antigens are negative at this time , currently patient is on vancomycin, Zosyn, Levaquin and we will de-escalate antibiotics based on the results of cultures after 48 hours. (6) Lactic acidosis Current Visit: Yes Status: Acute This has improved but still elevated, likely secondary to severe sepsis from underlying bacterial pneumonia, currently patient is on normal saline IV fluid, will continue with broad-spectrum IV antibiotics and will recheck the level in 6 hours. (7) DVT prophylaxis Current Visit: Yes Status: Acute Heparin subcutaneous 3 times a day. Subjective Principal diagnosis: Acute on chronic hypercapnic and hypoxic respiratory failure Interval history: Patient seen and examined. Patient does open his eyes to voice but does not follow simple commands, still on IV sedations, no acute event overnight. Objective PUL Vital signs: Last Vital Signs Temp 98.1 F 05/13/16 03:00 Pulse 72 05/13/16 06:00 Resp 19 05/13/16 06:02 BP 81/48 05/13/16 06:02 Pulse Ox 92 05/13/16 06:02 General appearance: no acute distress, other (on IV sedation) Eyes: nonicteric ENT: oropharynx moist Neck: supple Auscultation: bilateral: diminished breath sounds (At base, diffusely), wheezes (Diffusely in upper field) Cardiovascular: regular rate and rhythm Gastrointestinal: normoactive bowel sounds, soft, non-distended Integumentary: other (No rash, erythema or cellulitis) Extremities: no cyanosis, no edema, no clubbing, pink and warm, pulses normal, other (Capillary refill less than 2 seconds) Musculoskeletal: no deformities pupils equal and round, other (on IV sedation) Ventilator Settings Ventilator Settings: Ventilator Settings, Last 8 Hours Ventilator Mode VC+ Ventilator Mode VC+ Ventilator Mode VC+ Ventilator Mode VC+ Ventilator Mode VC+ Ventilator Mode VC+ Ventilator Mode VC+ Ventilator Mode VC+ Ventilator Mode VC+ Ventilator Mode VC+ Ventilator Mode VC+ Ventilator Mode VC+ Ventilator Tidal Volume 550 Setting Ventilator Tidal Volume 550 Setting Ventilator Tidal Volume 550 Setting Ventilator Tidal Volume 550 Setting Ventilator Tidal Volume 550 Setting Ventilator Tidal Volume 550 Setting Ventilator Tidal Volume 550 Setting Ventilator Tidal Volume 550 Setting Ventilator Tidal Volume 550 Setting Ventilator Tidal Volume 550 Setting Ventilator Tidal Volume 550 Setting Ventilator Tidal Volume 550 Setting Ventilator Respiratory Rate 14 Setting Ventilator Respiratory Rate 14 Setting Ventilator Respiratory Rate 14 Setting Ventilator Respiratory Rate 14 Setting Ventilator Respiratory Rate 14 Setting Ventilator Respiratory Rate 14 Setting Ventilator Respiratory Rate 14 Setting Ventilator Respiratory Rate 14 Setting Ventilator Respiratory Rate 14 Setting Ventilator Respiratory Rate 14 Setting Ventilator Respiratory Rate 14 Setting Ventilator Respiratory Rate 14 Setting Actual Respiratory Rate 19 Actual Respiratory Rate 17 Actual Respiratory Rate 18 Actual Respiratory Rate 18 Actual Respiratory Rate 21 Actual Respiratory Rate 18 Actual Respiratory Rate 19 Actual Respiratory Rate 20 Actual Respiratory Rate 17 Actual Respiratory Rate 16 Actual Respiratory Rate 18 Positive End Expiratory 5 Pressure Positive End Expiratory 5 Pressure Positive End Expiratory 5 Pressure Positive End Expiratory 5 Pressure Positive End Expiratory 5 Pressure Positive End Expiratory 5 Pressure Positive End Expiratory 5 Pressure Positive End Expiratory 5 Pressure Positive End Expiratory 5 Pressure Positive End Expiratory 5 Pressure Positive End Expiratory 5 Pressure Positive End Expiratory 5 Pressure Peak Inspiratory Airway 29 Pressure Peak Inspiratory Airway 25 Pressure Peak Inspiratory Airway 31 Pressure Peak Inspiratory Airway 28 Pressure Peak Inspiratory Airway 27 Pressure Peak Inspiratory Airway 21 Pressure Peak Inspiratory Airway 28 Pressure Peak Inspiratory Airway 30 Pressure Peak Inspiratory Airway 33 Pressure Peak Inspiratory Airway 28 Pressure Peak Inspiratory Airway 29 Pressure Results - Laboratory Findings CBC and BMP: 05/13/16 03:10 05/13/16 03:10 ABG ABG pH 7.24 pH Units (7.32-7.45) L 05/13/16 06:50 ABG pCO2 50 mmHg (35-45) H 05/13/16 06:50 ABG pO2 68 mmHg (85-104) L 05/13/16 06:50 ABG O2 Saturation 90 % (95-98) L 05/13/16 06:50 PT/INR, D-dimer PT 10.2 Seconds (9.4-12.1) 05/12/16 07:05 Abnormal lab findings: Abnormal lab results WBC 21.3 K/mcL (4.3-11.1) H 05/13/16 03:10 Band Neutrophils % 24.0 % (0-4) H 05/12/16 07:05 Neutrophils # 19.5 K/mcL (1.6-8.9) H 05/13/16 03:10 APTT 20.6 Seconds (26.0-36.0) L 05/12/16 07:05 ABG pH 7.24 pH Units (7.32-7.45) L 05/13/16 06:50 ABG pCO2 50 mmHg (35-45) H 05/13/16 06:50 ABG pO2 68 mmHg (85-104) L 05/13/16 06:50 ABG O2 Saturation 90 % (95-98) L 05/13/16 06:50 ABG Base Excess -6.4 mEq/L (-2.0 to 3.0) L 05/13/16 06:50 Potassium 5.4 mEq/L (3.5-4.5) H 05/13/16 03:10 BUN 39 mg/dL (8-26) H 05/13/16 03:10 Creatinine 2.71 mg/dL (0.72-1.25) H 05/13/16 03:10 Est GFR ( Amer) 28 (> 60) L 05/13/16 03:10 Est GFR (Non-Af Amer) 23 (> 60) L 05/13/16 03:10 Glucose 153 mg/dL (70-99) H 05/13/16 03:10 POC Glucose 130 (58-89) H 05/13/16 05:51 Lactic Acid 4.0 mmol/L (0.5-2.2) H* 05/13/16 03:10 Calcium 8.0 mg/dL (8.6-10.8) L 05/13/16 03:10 B-Natriuretic Peptide 192 pg/mL (0-100) H 05/12/16 07:05 - Microbiology Findings Microbiology Findings: Microbiology, Last 48 Hours 05/12/16 17:00 Sputum Culture - Preliminary Sputum 05/12/16 17:55 Legionella Antigen - Final Urine,[place] Streptococcus pneumoniae Antigen (M - Final - Clinical Findings Intake & Output: Intake & Output 05/12/16 05/12/16 05/13/16 15:59 23:59 07:59 Intake Total 3214 / 3214 1781 / 1781 1594.6 / 1594.6 Output Total 150 / 150 500 / 500 400 / 400 Balance 3064 / 3064 1281 / 1281 1194.6 / 1194.6 Weight 87 kg 92.4 kg Consult Discharge Plan - Plan Referrals: Peña Barber MD [Primary Care Provider] - <Jannette Michaels - Last Filed: 05/13/16 11:08> Date of Encounter: 05/13/16 Objective PUL Vital signs: Last Vital Signs Temp 98.2 F 05/13/16 08:15 Pulse 81 05/13/16 10:00 Resp 23 05/13/16 10:00 BP 82/53 05/13/16 10:00 Pulse Ox 93 05/13/16 10:00 Ventilator Settings Ventilator Settings: Ventilator Settings, Last 8 Hours Ventilator Mode VC+ Ventilator Mode VC+ Ventilator Mode VC+ Ventilator Mode VC+ Ventilator Mode VC+ Ventilator Mode VC+ Ventilator Mode VC+ Ventilator Mode VC+ Ventilator Mode VC+ Ventilator Mode VC+ Ventilator Mode VC+ Ventilator Tidal Volume 550 Setting Ventilator Tidal Volume 550 Setting Ventilator Tidal Volume 550 Setting Ventilator Tidal Volume 550 Setting Ventilator Tidal Volume 550 Setting Ventilator Tidal Volume 550 Setting Ventilator Tidal Volume 550 Setting Ventilator Tidal Volume 550 Setting Ventilator Tidal Volume 550 Setting Ventilator Tidal Volume 550 Setting Ventilator Tidal Volume 550 Setting Ventilator Respiratory Rate 14 Setting Ventilator Respiratory Rate 14 Setting Ventilator Respiratory Rate 14 Setting Ventilator Respiratory Rate 14 Setting Ventilator Respiratory Rate 14 Setting Ventilator Respiratory Rate 14 Setting Ventilator Respiratory Rate 14 Setting Ventilator Respiratory Rate 14 Setting Ventilator Respiratory Rate 14 Setting Ventilator Respiratory Rate 14 Setting Ventilator Respiratory Rate 14 Setting Actual Respiratory Rate 23 Actual Respiratory Rate 17 Actual Respiratory Rate 15 Actual Respiratory Rate 19 Actual Respiratory Rate 14 Actual Respiratory Rate 19 Actual Respiratory Rate 17 Actual Respiratory Rate 18 Actual Respiratory Rate 18 Actual Respiratory Rate 21 Positive End Expiratory 5 Pressure Positive End Expiratory 5 Pressure Positive End Expiratory 5 Pressure Positive End Expiratory 5 Pressure Positive End Expiratory 5 Pressure Positive End Expiratory 5 Pressure Positive End Expiratory 5 Pressure Positive End Expiratory 5 Pressure Positive End Expiratory 5 Pressure Positive End Expiratory 5 Pressure Positive End Expiratory 5 Pressure Peak Inspiratory Airway 36 Pressure Peak Inspiratory Airway 19 Pressure Peak Inspiratory Airway 32 Pressure Peak Inspiratory Airway 29 Pressure Peak Inspiratory Airway 29 Pressure Peak Inspiratory Airway 29 Pressure Peak Inspiratory Airway 25 Pressure Peak Inspiratory Airway 31 Pressure Peak Inspiratory Airway 28 Pressure Peak Inspiratory Airway 27 Pressure Results - Laboratory Findings CBC and BMP: 05/13/16 03:10 05/13/16 03:10 ABG ABG pH 7.24 pH Units (7.32-7.45) L 05/13/16 06:50 ABG pCO2 50 mmHg (35-45) H 05/13/16 06:50 ABG pO2 68 mmHg (85-104) L 05/13/16 06:50 ABG O2 Saturation 90 % (95-98) L 05/13/16 06:50 PT/INR, D-dimer PT 10.2 Seconds (9.4-12.1) 05/12/16 07:05 Abnormal lab findings: Abnormal lab results WBC 21.3 K/mcL (4.3-11.1) H 05/13/16 03:10 Band Neutrophils % 24.0 % (0-4) H 05/12/16 07:05 Neutrophils # 19.5 K/mcL (1.6-8.9) H 05/13/16 03:10 APTT 20.6 Seconds (26.0-36.0) L 05/12/16 07:05 ABG pH 7.24 pH Units (7.32-7.45) L 05/13/16 06:50 ABG pCO2 50 mmHg (35-45) H 05/13/16 06:50 ABG pO2 68 mmHg (85-104) L 05/13/16 06:50 ABG O2 Saturation 90 % (95-98) L 05/13/16 06:50 ABG Base Excess -6.4 mEq/L (-2.0 to 3.0) L 05/13/16 06:50 Potassium 5.4 mEq/L (3.5-4.5) H 05/13/16 03:10 BUN 39 mg/dL (8-26) H 05/13/16 03:10 Creatinine 2.71 mg/dL (0.72-1.25) H 05/13/16 03:10 Est GFR ( Amer) 28 (> 60) L 05/13/16 03:10 Est GFR (Non-Af Amer) 23 (> 60) L 05/13/16 03:10 Glucose 153 mg/dL (70-99) H 05/13/16 03:10 POC Glucose 130 (58-89) H 05/13/16 05:51 Lactic Acid 5.0 mmol/L (0.5-2.2) H* 05/13/16 09:50 Calcium 8.0 mg/dL (8.6-10.8) L 05/13/16 03:10 Phosphorus 7.9 mg/dL (2.3-4.7) H D 05/13/16 09:12 B-Natriuretic Peptide 192 pg/mL (0-100) H 05/12/16 07:05 Urine Clarity Cloudy (Clear) A 05/13/16 09:50 Urine Protein 30 mg/dL (Neg-Trace) H 05/13/16 09:50 Urine Blood Large (Negative) H 04/08/17 09:50 Urine Microscopic RBC 3-5 per hpf (0-3) H 05/13/16 09:50 Urine Microscopic WBC 5-15 per hpf (0-3) H 05/13/16 09:50 Ur Squamous Epith Cells Many per lpf (None-Few) H 05/13/16 09:50 - Microbiology Findings Microbiology Findings: Microbiology, Last 48 Hours 05/12/16 17:00 Sputum Culture - Preliminary Sputum 05/12/16 17:55 Legionella Antigen - Final Urine,[place] Streptococcus pneumoniae Antigen (M - Final - Clinical Findings Intake & Output: Intake & Output 05/12/16 05/13/16 05/13/16 23:59 07:59 15:59 Intake Total 1781 / 1781 1594.6 / 1594.6 400 / 400 Output Total 500 / 500 400 / 400 0 / 0 Balance 1281 / 1281 1194.6 / 1194.6 400 / 400 Weight 92.4 kg - Attending Attestation I examined this patient and my medical decision-making was reviewed with the ROUTE INSPECTOR/PA/Advanced Practice Nurse/Resident Physician. I agree with the documented findings, disposition and treatment plan as described except to the extent set forth below. Patient seen and examined. Labs, radiology, chart personally reviewed. 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 Lower FIO2 as tolerated. No SBT today because patient remain on Levophed. If condition doesn't improve, may do bronchoscopy when more stable and lower pressor to evaluate his pneumonia. Cardiovascular: suspect septic shock from pneumona. Fluid bolus and continue antibiotics. GI: Nutrition per dietary and GI prophylaxis per routine. Start tube feed. Heme: DVT prophylaxis per routine ID: Continue antibiotics and plan to de-escalation Renal; urine out put and renal funtion reviewed. JAIDEN suspect this is related to septic shock. Check urine electrolytes and renal US. if no improvement, consider nephrology consult. Endorcine: blood glucose is monitored Lines: all lines checked and no evidence of infections Skin: skin care to prevent pressure ulcers per nursing routine care I spent 35 min of Critical Care time with this patient. It involved decision making of high complexity to assess, manipulate, and support vital organ system failure and/or to prevent further life threatening deterioration of the patient' s condition. The time involved in the performance of separately reportable procedures was not counted toward critical care time.
[2016-05-13] MEDS: Budesonide/Formoterol 160/4.5 MDI IH SCH ×2 (07:31→19:56)
[2016-05-13] MEDS: Pantoprazole 40 MG VIAL IVP SCH (07:59)
[2016-05-13] MEDS ORDERED: Aminoglycoside Consult 1 EACH MC ONE (08:28)
[2016-05-13] MEDS ORDERED: Levofloxacin 750 MG/150 ML 750 MG/150 ML BAG IVPB SCH (09:00)
[2016-05-13] MEDS ORDERED: Vancomycin 1,250 MG in D5% in Water 250 ML IVPB SCH (09:00)
[2016-05-13 10:08] LABS: Bilirubin,Urine Negative (Negative); Blood,Urine Large (Negative); Clarity,Urine Cloudy (Clear); Color,Urine Dark Yellow (Yellow); Glucose,Urine (UA) Normal (Normal); Ketones,Urine Negative (Negative); Leukocyte Esterase,Urine Negative (Negative); Nitrite,Urine Negative (Negative); Protein,Urine 30 mg/dL (Neg-Trace); Specific Gravity,Urine 1.021 (1.010-1.025); Urobilinogen,Urine Normal (Normal)
[2016-05-13 10:11] LABS: Bacteria,Urine None Seen per hpf (None-Few); Hyaline Casts,Urine None Seen per lpf (None-Few); Squamous Epithelial Cell,Urine Many per lpf (None-Few)
[2016-05-13] MEDS ORDERED: 0.9 % Sodium Chloride 500 ML IVC ONE ×2 (10:20→10:41)
[2016-05-13 10:44] LABS: Potassium,Urine 60.3 mEq/L
[2016-05-13] MEDS: *HR* Acetylcysteine 20% 600 MG/3 ML ORAL SYRINGE PO SCH ×2 (11:44→21:26)
[2016-05-14] MEDS: Piperacillin/Tazobactam 3.375 GM in D5% in Water (Mini-Bag+) 100 ML IVPB SCH ×3 (00:17→17:42)
[2016-05-14] MEDS: methylPREDNISolone 125 MG/2 ML VIAL IVP SCH ×5 (00:17→23:48)
[2016-05-14] MEDS: FentaNYL (PF) 1,000 MCG in 0.9 % Sodium Chloride 80 ML IVC SCH ×2 (01:18→22:48)
[2016-05-14] MEDS: Norepinephrine 4 MG in D5% in Water 250 ML IVC SCH ×2 (01:19→23:09)
[2016-05-14] MEDS: Ipratropium/Albuterol Neb 3 ML IH SCH ×5 (03:35→20:25)
[2016-05-14 03:47] LABS: Hematocrit 39.9 % (37.5-50.1); Immature Platelets 5.8 % (1.1-6.1); Mean Corpuscular HGB Conc 32.3 g/dL (31.6-35.5); Mean Corpuscular Volume 95.9 fL (83.0-100.0); Mean Platelet Volume 9.8 fL (9.4-12.4); Platelet Count 113 K/mcL (140-400); Red Blood Count 4.16 M/mcL (4.19-5.50); Red Cell Distribution Width 13.2 % (11.5-14.5)
[2016-05-14 03:48] LABS: Hemoglobin 12.9 g/dL (12.9-16.9)
[2016-05-14 03:59] LABS: Calcium 7.1 mg/dL (8.6-10.8); Phosphorous 7.4 mg/dL (2.3-4.7)
[2016-05-14 04:14] LABS: Lymphocytes # 0.4 K/mcL (0.6-4.6); Monocytes # 0.4 K/mcL (0.0-1.3); Neutrophils # 17.3 K/mcL (1.6-8.9); Platelet Estimate Slight Decrease (Normal)
[2016-05-14] MEDS: 0.9 % Sodium Chloride 1,000 ML IVC SCH (04:59)
[2016-05-14] MEDS: *HR* Heparin 5,000 UNIT/ML VIAL SQ SCH ×3 (04:59→21:35)
[2016-05-14 05:08] LABS: ABG Base Excess -6.9 mEq/L (-2.0 to 3.0); ABG Oxygen Saturation 92 % (95-98); ABG PCO2 59 mmHg (35-45); ABG PO2 79 mmHg (85-104); ABG TCO2 23.8 mEq/L (20-26); Blood Gas FiO2 60 %; Blood Gas PEEP 5 cm H2O; Blood Gas Respiration Rate 14; Blood Gas VT 550 cc
[2016-05-14 05:11] LABS: ABG PH 7.18 pH Units (7.32-7.45)
--- NOTE | 2016-05-14 06:01 | Pulmonology Progress Note ---
<Jannette Michales M - Last Filed: 05/14/16 10:17> Date of Encounter: 05/14/16 Objective PUL Vital signs: Last Vital Signs Temp 97.9 F 05/14/16 07:44 Pulse 77 05/14/16 09:00 Resp 16 05/14/16 09:00 BP 103/54 05/14/16 09:00 Pulse Ox 92 05/14/16 09:00 Ventilator Settings Ventilator Settings: Ventilator Settings, Last 8 Hours Ventilator Mode VC+ Ventilator Mode VC+ Ventilator Mode VC+ Ventilator Mode VC+ Ventilator Mode VC+ Ventilator Mode VC+ Ventilator Mode VC+ Ventilator Mode VC+ Ventilator Mode VC+ Ventilator Mode VC+ Ventilator Mode VC+ Ventilator Tidal Volume 600 Setting Ventilator Tidal Volume 550 Setting Ventilator Tidal Volume 550 Setting Ventilator Tidal Volume 550 Setting Ventilator Tidal Volume 550 Setting Ventilator Tidal Volume 550 Setting Ventilator Tidal Volume 550 Setting Ventilator Tidal Volume 550 Setting Ventilator Tidal Volume 550 Setting Ventilator Tidal Volume 550 Setting Ventilator Tidal Volume 550 Setting Ventilator Respiratory Rate 12 Setting Ventilator Respiratory Rate 16 Setting Ventilator Respiratory Rate 16 Setting Ventilator Respiratory Rate 16 Setting Ventilator Respiratory Rate 16 Setting Ventilator Respiratory Rate 16 Setting Ventilator Respiratory Rate 14 Setting Ventilator Respiratory Rate 14 Setting Ventilator Respiratory Rate 14 Setting Ventilator Respiratory Rate 14 Setting Ventilator Respiratory Rate 14 Setting Actual Respiratory Rate 16 Actual Respiratory Rate 16 Actual Respiratory Rate 18 Actual Respiratory Rate 18 Actual Respiratory Rate 18 Actual Respiratory Rate 20 Actual Respiratory Rate 17 Actual Respiratory Rate 19 Actual Respiratory Rate 17 Actual Respiratory Rate 19 Positive End Expiratory 5 Pressure Positive End Expiratory 5 Pressure Positive End Expiratory 5 Pressure Positive End Expiratory 5 Pressure Positive End Expiratory 5 Pressure Positive End Expiratory 5 Pressure Positive End Expiratory 5 Pressure Positive End Expiratory 5 Pressure Positive End Expiratory 5 Pressure Positive End Expiratory 5 Pressure Positive End Expiratory 5 Pressure Peak Inspiratory Airway 36 Pressure Peak Inspiratory Airway 34 Pressure Peak Inspiratory Airway 35 Pressure Peak Inspiratory Airway 35 Pressure Peak Inspiratory Airway 29 Pressure Peak Inspiratory Airway 34 Pressure Peak Inspiratory Airway 33 Pressure Peak Inspiratory Airway 29 Pressure Peak Inspiratory Airway 29 Pressure Peak Inspiratory Airway 33 Pressure Results - Laboratory Findings CBC and BMP: 05/14/16 03:37 05/14/16 03:37 ABG ABG pH 7.21 pH Units (7.32-7.45) L 05/14/16 08:20 ABG pCO2 56 mmHg (35-45) H 05/14/16 08:20 ABG pO2 80 mmHg (85-104) L 05/14/16 08:20 ABG O2 Saturation 93 % (95-98) L 05/14/16 08:20 PT/INR, D-dimer PT 10.2 Seconds (9.4-12.1) 05/12/16 07:05 Abnormal lab findings: Abnormal lab results WBC 18.8 K/mcL (4.3-11.1) H 05/14/16 03:37 RBC 4.16 M/mcL (4.19-5.50) L 05/14/16 03:37 Plt Count 113 K/mcL (140-400) L 05/14/16 03:37 Band Neutrophils % 18.0 % (0-4) H 05/14/16 03:37 Metamyelocytes % 4.0 % (0) H 05/14/16 03:37 Neutrophils # 17.3 K/mcL (1.6-8.9) H 05/14/16 03:37 Lymphocytes # 0.4 K/mcL (0.6-4.6) L 05/14/16 03:37 Platelet Estimate Slight Decrease (Normal) L 05/14/16 03:37 APTT 20.6 Seconds (26.0-36.0) L 05/12/16 07:05 ABG pH 7.21 pH Units (7.32-7.45) L 05/14/16 08:20 ABG pCO2 56 mmHg (35-45) H 05/14/16 08:20 ABG pO2 80 mmHg (85-104) L 05/14/16 08:20 ABG O2 Saturation 93 % (95-98) L 05/14/16 08:20 ABG Base Excess -5.9 mEq/L (-2.0 to 3.0) L 05/14/16 08:20 Sodium 133 mEq/L (136-145) L 05/14/16 03:37 Potassium 5.0 mEq/L (3.5-4.5) H 05/14/16 03:37 BUN 54 mg/dL (8-26) H D 05/14/16 03:37 Creatinine 4.64 mg/dL (0.72-1.25) H D 05/14/16 03:37 Est GFR ( Amer) 15 (> 60) L 05/14/16 03:37 Est GFR (Non-Af Amer) 13 (> 60) L 05/14/16 03:37 Glucose 175 mg/dL (70-99) H 05/14/16 03:37 POC Glucose 145 (58-89) H 05/14/16 05:23 Lactic Acid 2.6 mmol/L (0.5-2.2) H 05/14/16 08:15 Calcium 7.1 mg/dL (8.6-10.8) L 05/14/16 03:37 Phosphorus 7.4 mg/dL (2.3-4.7) H 05/14/16 03:37 B-Natriuretic Peptide 192 pg/mL (0-100) H 05/12/16 07:05 Urine Clarity Cloudy (Clear) A 05/13/16 09:50 Urine Protein 30 mg/dL (Neg-Trace) H 05/13/16 09:50 Urine Blood Large (Negative) H 05/13/16 09:50 Urine Microscopic RBC 3-5 per hpf (0-3) H 05/13/16 09:50 Urine Microscopic WBC 5-15 per hpf (0-3) H 05/13/16 09:50 Ur Squamous Epith Cells Many per lpf (None-Few) H 05/13/16 09:50 - Microbiology Findings Microbiology Findings: Microbiology, Last 48 Hours 05/12/16 17:00 Sputum Culture - Final Sputum No growth. 05/12/16 17:55 Legionella Antigen - Final Urine,[place] Streptococcus pneumoniae Antigen (M - Final - Clinical Findings Intake & Output: Intake & Output 05/13/16 05/14/16 05/14/16 23:59 07:59 15:59 Intake Total 2006.4 / 2006.4 1618.8 / 1618.8 Output Total 365 / 365 100 / 100 Balance 1641.4 / 1641.4 1518.8 / 1518.8 Weight 92.5 kg Consult Discharge Plan - Plan Referrals: Peña Barber MD [Primary Care Provider] - - Attending Attestation I examined this patient and my medical decision-making was reviewed with the CLINICAL SUPERVISOR/PA/Advanced Practice Nurse/Resident Physician. I agree with the documented findings, disposition and treatment plan as described except to the extent set forth below. Patient seen and examined. Labs, radiology, chart personally reviewed. Agree with resident's history and physical, assessment, plan with following comments: PORTER BATH: Patient is sedated and does not follows commands, he responds to painful stimuli Pulmonary: Acceptable oxygenation and ventilation. Change then sitting with lowering set respiratory rate due to intrinsic PEEP and increase his tidal volume due to component of respiratory acidosis and after changing vent there is improvement in auto PEEP and follow-up ABG later on. Cardiovascular: Septic shock with worsening acidosis mostly related to worsening of his renal function. GI: Nutrition per dietary and GI prophylaxis per routine. Patient is not tolerating tube feed and keep it on hold at this time I suspect related to his septic shock and patient is being on vasopressor Heme: DVT prophylaxis per routine ID: Continue antibiotics and plan to de-escalation Renal; urine out put and renal funtion reviewed. Discussed with fabric sourcer and appreciate input and help and agree with plan of care. I have placed patient on bicarbonate drip which can be stopped once CRRT start. Endorcine: blood glucose is monitored Lines: all lines checked and no evidence of infections Skin: skin care to prevent pressure ulcers per nursing routine care I spent 40 min of Critical Care time with this patient. It involved decision making of high complexity to assess, manipulate, and support vital organ system failure and/or to prevent further life threatening deterioration of the patient' s condition. The time involved in the performance of separately reportable procedures was not counted toward critical care time. <Ashkan Bhatt - Last Filed: 05/14/16 14:38> Date of Encounter: 05/14/16 Time of Encounter: 06:01 Assessment and Plan (1) Acute on chronic respiratory failure with hypoxia and hypercapnia Current Visit: Yes Status: Acute Patient is still remained on mechanical ventilation. Patient was recently discharged from this hospital more than a week ago for acute exacerbation of COPD, he was discharged home with po steroid taper. This time is also likely secondary to acute exacerbation of COPD from hospital-acquired pneumonia, chest x-ray showed extensive infiltrate at right lung base which is new compared to previous chest x-ray from 05/01/2016. Patient was not able to tolerate BiPAP therefore he was intubated in the ICU, will continue to treat his underlying bacterial pneumonia with IV antibiotics of Zosyn, and Levaquin, started him on COPD regimen of DuoNeb, Symbicort, IV steroid, antibiotics, and oxygen support through mechanical ventilation. (2) Acute exacerbation of chronic obstructive pulmonary disease Current Visit: Yes Status: Acute Likely secondary to underlying hospital-acquired bacterial pneumonia, will treat underlying infection with IV antibiotics, and started him on COPD regimen of Symbicort, DuoNeb, IV steroid, antibiotics, and oxygen support. (3) JAIDEN (acute kidney injury) Current Visit: Yes Status: Acute Patient's renal function continued to worsen with oliguria, he has no history of chronic kidney disease, JAIDEN likely secondary to septic shock, he was started on levophed 4 days ago, nephrology has been consulted, temporary HD catheter was placed on the right internal jugular vein, patient will be started on CVVHDF. (4) Septic shock Current Visit: Yes Status: Acute This is likely due to underlying hospital-acquired bacterial pneumonia, with lactic acidosis, hypotension requiring pressor support and acute kidney injury, currently he is on levophed, will continue normal saline IV fluid, blood/sputum/ urine cultures are negative at this time, will continue with broad-spectrum with Zosyn and Levaquin. (5) Hospital-acquired pneumonia Current Visit: Yes Status: Acute Patient was discharged from this hospital more than a week ago now presented with worsening chest x-ray with right lower lobe new infiltrate, blood/sputum cultures and Legionella/strep pneumo urinary antigens are negative at this time , will discontinue vancomycin based on the culture result and continue with Zosyn and Levaquin. (6) Atrial fibrillation with rapid ventricular response Current Visit: Yes Status: Acute Currently the patient is having atrial fibrillation with rapid ventricular response, MAP is around 70 with levophed IV, will start him on amiodarone drip. (7) Lactic acidosis Current Visit: Yes Status: Acute This has improved, likely secondary to severe sepsis from underlying bacterial pneumonia, currently patient is on normal saline IV fluid, will continue with broad-spectrum IV antibiotics and will recheck the level in morning. (8) DVT prophylaxis Current Visit: Yes Status: Acute Heparin subcutaneous 3 times a day. Subjective Principal diagnosis: Acute on chronic hypercapnic and hypoxic respiratory failure Interval history: Patient seen and examined. No acute overnight events, patient still not making much of urine, less than 400 mL over the last 24 hours. Patient does open his eyes to voice but does not follow simple commands, still on IV sedations. Objective PUL Vital signs: Last Vital Signs Temp 98.3 F 05/14/16 03:45 Pulse 72 05/14/16 05:15 Resp 20 05/14/16 05:15 BP 103/53 05/14/16 05:15 Pulse Ox 94 05/14/16 05:15 General appearance: no acute distress Eyes: nonicteric ENT: oropharynx moist Neck: supple Auscultation: bilateral: diminished breath sounds (at base), wheezes (in upper field) Cardiovascular: regular rate and rhythm, irregular rhythm (Tachycardic) Gastrointestinal: normoactive bowel sounds, soft Integumentary: normal Extremities: no cyanosis, no clubbing, pink and warm, pulses normal, edema ( Mild bilateral nonpitting pedal), other (Capillary refill less than 2 seconds) Musculoskeletal: no deformities pupils equal and round, other (On IV sedation) Ventilator Settings Ventilator Settings: Ventilator Settings, Last 8 Hours Ventilator Mode VC+ Ventilator Mode VC+ Ventilator Mode VC+ Ventilator Mode VC+ Ventilator Mode VC+ Ventilator Mode VC+ Ventilator Mode VC+ Ventilator Mode VC+ Ventilator Mode VC+ Ventilator Mode VC+ Ventilator Mode VC+ Ventilator Tidal Volume 550 Setting Ventilator Tidal Volume 550 Setting Ventilator Tidal Volume 550 Setting Ventilator Tidal Volume 550 Setting Ventilator Tidal Volume 550 Setting Ventilator Tidal Volume 550 Setting Ventilator Tidal Volume 550 Setting Ventilator Tidal Volume 550 Setting Ventilator Tidal Volume 550 Setting Ventilator Tidal Volume 550 Setting Ventilator Tidal Volume 550 Setting Ventilator Respiratory Rate 16 Setting Ventilator Respiratory Rate 14 Setting Ventilator Respiratory Rate 14 Setting Ventilator Respiratory Rate 14 Setting Ventilator Respiratory Rate 14 Setting Ventilator Respiratory Rate 14 Setting Ventilator Respiratory Rate 14 Setting Ventilator Respiratory Rate 14 Setting Ventilator Respiratory Rate 14 Setting Ventilator Respiratory Rate 14 Setting Ventilator Respiratory Rate 14 Setting Actual Respiratory Rate 20 Actual Respiratory Rate 17 Actual Respiratory Rate 19 Actual Respiratory Rate 17 Actual Respiratory Rate 19 Actual Respiratory Rate 17 Actual Respiratory Rate 16 Actual Respiratory Rate 17 Actual Respiratory Rate 20 Actual Respiratory Rate 16 Positive End Expiratory 5 Pressure Positive End Expiratory 5 Pressure Positive End Expiratory 5 Pressure Positive End Expiratory 5 Pressure Positive End Expiratory 5 Pressure Positive End Expiratory 5 Pressure Positive End Expiratory 5 Pressure Positive End Expiratory 5 Pressure Positive End Expiratory 5 Pressure Positive End Expiratory 5 Pressure Positive End Expiratory 5 Pressure Peak Inspiratory Airway 34 Pressure Peak Inspiratory Airway 33 Pressure Peak Inspiratory Airway 29 Pressure Peak Inspiratory Airway 29 Pressure Peak Inspiratory Airway 33 Pressure Peak Inspiratory Airway 34 Pressure Peak Inspiratory Airway 32 Pressure Peak Inspiratory Airway 31 Pressure Peak Inspiratory Airway 31 Pressure Peak Inspiratory Airway 32 Pressure Results - Laboratory Findings CBC and BMP: 05/14/16 03:37 05/14/16 03:37 ABG ABG pH 7.18 pH Units (7.32-7.45) L* 05/14/16 04:58 ABG pCO2 59 mmHg (35-45) H 05/14/16 04:58 ABG pO2 79 mmHg (85-104) L 05/14/16 04:58 ABG O2 Saturation 92 % (95-98) L 05/14/16 04:58 PT/INR, D-dimer PT 10.2 Seconds (9.4-12.1) 05/12/16 07:05 Abnormal lab findings: Abnormal lab results WBC 18.8 K/mcL (4.3-11.1) H 05/14/16 03:37 RBC 4.16 M/mcL (4.19-5.50) L 05/14/16 03:37 Plt Count 113 K/mcL (140-400) L 05/14/16 03:37 Band Neutrophils % 18.0 % (0-4) H 05/14/16 03:37 Metamyelocytes % 4.0 % (0) H 05/14/16 03:37 Neutrophils # 17.3 K/mcL (1.6-8.9) H 05/14/16 03:37 Lymphocytes # 0.4 K/mcL (0.6-4.6) L 05/14/16 03:37 Platelet Estimate Slight Decrease (Normal) L 05/14/16 03:37 APTT 20.6 Seconds (26.0-36.0) L 05/12/16 07:05 ABG pH 7.18 pH Units (7.32-7.45) L* 05/14/16 04:58 ABG pCO2 59 mmHg (35-45) H 05/14/16 04:58 ABG pO2 79 mmHg (85-104) L 05/14/16 04:58 ABG O2 Saturation 92 % (95-98) L 05/14/16 04:58 ABG Base Excess -6.9 mEq/L (-2.0 to 3.0) L 05/14/16 04:58 Sodium 133 mEq/L (136-145) L 05/14/16 03:37 Potassium 5.0 mEq/L (3.5-4.5) H 05/14/16 03:37 BUN 54 mg/dL (8-26) H D 05/14/16 03:37 Creatinine 4.64 mg/dL (0.72-1.25) H D 05/14/16 03:37 Est GFR ( Amer) 15 (> 60) L 05/14/16 03:37 Est GFR (Non-Af Amer) 13 (> 60) L 05/14/16 03:37 Glucose 175 mg/dL (70-99) H 05/14/16 03:37 POC Glucose 145 (58-89) H 05/14/16 05:23 Lactic Acid 2.3 mmol/L (0.5-2.2) H 05/14/16 03:37 Calcium 7.1 mg/dL (8.6-10.8) L 05/14/16 03:37 Phosphorus 7.4 mg/dL (2.3-4.7) H 05/14/16 03:37 B-Natriuretic Peptide 192 pg/mL (0-100) H 05/12/16 07:05 Urine Clarity Cloudy (Clear) A 05/13/16 09:50 Urine Protein 30 mg/dL (Neg-Trace) H 05/13/16 09:50 Urine Blood Large (Negative) H 05/13/16 09:50 Urine Microscopic RBC 3-5 per hpf (0-3) H 05/13/16 09:50 Urine Microscopic WBC 5-15 per hpf (0-3) H 05/13/16 09:50 Ur Squamous Epith Cells Many per lpf (None-Few) H 05/13/16 09:50 - Microbiology Findings Microbiology Findings: Microbiology, Last 48 Hours 05/12/16 17:00 Sputum Culture - Final Sputum No growth. 05/12/16 17:55 Legionella Antigen - Final Urine,[place] Streptococcus pneumoniae Antigen (M - Final - Clinical Findings Intake & Output: Intake & Output 05/13/16 05/13/16 05/14/16 15:59 23:59 07:59 Intake Total 2780 / 2780 2006.4 / 2006.4 1544.6 / 1544.6 Output Total 0 / 0 365 / 365 100 / 100 Balance 2780 / 2780 1641.4 / 1641.4 1444.6 / 1444.6 Weight 92.5 kg
[2016-05-14] MEDS ORDERED: Sodium Bicarbonate 100 MEQ in D5% in Water 1,000 ML IVC SCH (06:15)
[2016-05-14] MEDS: Budesonide/Formoterol 160/4.5 MDI IH SCH ×2 (07:37→20:25)
[2016-05-14] MEDS: Pantoprazole 40 MG VIAL IVP SCH (08:04)
[2016-05-14] MEDS: *HR* Acetylcysteine 20% 600 MG/3 ML ORAL SYRINGE PO SCH (08:05)
[2016-05-14 08:32] LABS: ABG Base Excess -5.9 mEq/L (-2.0 to 3.0); ABG HCO3 22.4 mEQ/L (21-27); ABG Oxygen Saturation 93 % (95-98); ABG PCO2 56 mmHg (35-45); ABG PH 7.21 pH Units (7.32-7.45); ABG PO2 80 mmHg (85-104); ABG TCO2 24.1 mEq/L (20-26)
[2016-05-14 08:33] LABS: Blood Gas FiO2 60 %
--- NOTE | 2016-05-14 08:39 | Nephrology Consult Note ---
Date of Encounter: 05/14/16 Time of Encounter: 08:15 Assessment and Plan (1) JAIDEN (acute kidney injury) Current Visit: Yes Status: Acute Oligoanuria worsening with rapidly worsening renal function plus acute hyperphosphatemia, hyperkalemia, AGMA (with lactic acidosis). 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 I recommend CRRT, specifically CVVHDF: Dialysate 1250 with Replacement fluid 1250ml/hr for a goal Effluent Dose (ED) of at least 25. If frequent downtimes are noted, then may need to increase flows for a higher ED. Fluid removal: titrate slowly up for a goal of Net+25mL/hr. Start regional citrate with calcium gtt. Will follow the [facility] protocol for titration and potential variables for comparison. Dose Rx by a presumed GFR near 20-30 while on Barbi Monitor the Phos, Mag, Calcium, K+ and SCr while on CVVHDF Plan to stop the Bicarb gtt once CVVHDF starts. I spoke with the and son on the phone this AM and thoroughly reviewed the update regarding the pt's renal dysfunction. 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 Consent was obtained and the pt's RN confirmed the verbal consent with me on the phone. Follow a renal protective strategy as able: avoid nephrotoxins, dose Rx as stated above, strict I/Os, daily weights. Critical care time: 40 min including examination, family discussion, chart review, documentation and not including procedure time. Thank you for consulting the [facility]. (2) Oligouria Current Visit: Yes Status: Acute (3) Septic shock Current Visit: Yes Status: Acute (4) Lactic acidosis Current Visit: Yes Status: Acute (5) Hyperkalemia Current Visit: Yes Status: Acute (6) Hyperphosphatemia Current Visit: Yes Status: Acute (7) COPD (chronic obstructive pulmonary disease) Current Visit: No Status: Chronic Qualifiers: COPD type: emphysema Emphysema type: unspecified Qualified Code(s): J43.9 - Emphysema, unspecified History of Present Illness - Reason for Consult Consult date: 05/14/16 Acute Kidney Injury, metabolic acidosis Requesting physician: Jannette Michaels - Chief Complaint JAIDEN, Oligoanuria, Acidosis in setting of Septic Shock - History of Present Illness Maliha Rothman is a 71 gentleman with a pmh of HTN, tobacco use with COPD, CAD s/p PCI in 2015 (followed by [facility]) and et al who was recently readmitted. He was recently hospitalized with a COPD exacerbation. This hospitalization he was ultimately dx with septic shock associated with hypotension, elevated lactic acid and oligoanuria with rapidly worsening renal function labs. I reviewed his chart in detail: no prior nephrology consults. I spoke on the phone with the pt's and son: the pt has recently been experience lower urinary tract symptoms. Of note his renal U/S that the ICU had ordered returned without hydronephrosis. No reported chronic use of NSAIDs. No FHx of ESRD. Further hx is limited d/t his intubation/sedation. Past Med Surg Social Fam HX - Past Medical History Medical history: COPD, coronary artery disease, GERD, hyperlipidemia, hypertension, myocardial infarction, pulmonary embolus Psychiatric history: no psych history - Past Surgical History Surgical History: angioplasty/stent - Social History Smoking Status: Current every day smoker Smokeless Tobacco Status: No Alcohol use: none Drug use: none - Family History Mother Living Status: Hx Family Cardiac Disorders: No Hx Family Respiratory Disorders: Yes Hx Family Cancer: No Hx Family GI Disorders: No Hx Family Endocrine Disorder: No Hx Family Neuromuscular Disorders: No Hx Family Neurologic Disorders: Yes Hx Family HEENT Disorders: No Hx Family Autoimmune Disorders: No Father Living Status: Hx Family Cardiac Disorders: Yes Hx Family Respiratory Disorders: No Hx Family Cancer: No Hx Family GI Disorders: Yes Hx Family Endocrine Disorder: Yes Hx Family Neuromuscular Disorders: No Hx Family Neurologic Disorders: No Hx Family HEENT Disorders: No Hx Family Autoimmune Disorders: No Medications and Allergies RX: Aspirin 81 mg PO DAILY 10/05/14 [History] RX: Bumetanide [Bumex] 0.5 mg PO BID 10/05/14 [History] RX: Clopidogrel [Plavix] 75 mg PO DAILY 10/05/14 [History] RX: Isosorbide MONOnitrate (24 HR) [Imdur] 60 mg PO DAILY 10/05/14 [History] RX: Losartan [Cozaar] 25 mg PO DAILY 10/05/14 [History] RX: Metoprolol [Lopressor] 25 mg PO BID 10/05/14 [History] RX: Nitroglycerin 0.4 mg SL Q5MIN PRN 10/05/14 [History] RX: OxyCODONE/APAP 10/325 [Percocet 10/325] 1 tab PO Q6HR PRN 10/05/14 [History] RX: Pravastatin Sodium [Pravachol] 40 mg PO DAILY 10/05/14 [History] RX: Albuterol Sulfate [Proair Hfa] 2 puff IH BID 06/17/15 [History] RX: Budesonide/Formoterol 160/4.5 [Symbicort 160/4.5] 2 puff ID BID 06/17/15 [ History] RX: PredniSONE 10 mg PO DAILY #33 tablet 05/03/16 [Rx] Allergies furosemide [From Lasix] Allergy (Verified 05/12/16 07:05) Chest Pain hydrochlorothiazide Allergy (Verified 05/12/16 07:05) Chest Pain Sulfa (Sulfonamide Antibiotics) Allergy (Verified 05/12/16 07:05) Hives Hydromorphone [From Dilaudid] Adverse Reaction (Verified 05/12/16 07:05) Nausea Review of Systems ROS unobtainable: due to endotracheal tube Exam - Vital Signs Vital signs: Initial Vital Signs Temp Pulse Resp BP Pulse Ox 97.3 F L 135 34 180/85 97 05/12/16 06:52 05/12/16 06:52 05/12/16 06:52 05/12/16 06:52 05/12/16 06:52 Vital Signs - Last 8 Hours Temp Pulse Resp BP Pulse Ox 05/14/16 08:00 81 16 101/57 96 05/14/16 07:50 65 05/14/16 07:44 97.9 F 05/14/16 07:41 18 101/55 96 05/14/16 07:00 97.9 F 65 16 102/48 97 05/14/16 06:08 18 101/55 96 05/14/16 06:00 85 22 101/55 94 05/14/16 05:15 72 20 103/53 94 05/14/16 04:00 85 17 121/62 94 05/14/16 03:45 98.3 F 05/14/16 03:35 19 118/61 94 05/14/16 03:15 89 17 144/82 94 05/14/16 02:45 83 19 122/65 93 05/14/16 01:30 16 126/62 93 04/09/17 01:00 81 16 118/63 93 Intake and Output 05/13/16 05/14/16 05/14/16 23:59 07:59 15:59 Intake Total 2005.4 / 2005.4 1618.8 / 1618.8 Output Total 365 / 365 100 / 100 Balance 1641.4 / 1641.4 1518.8 / 1518.8 Intake: IV Fluids 1639.4 / 1639.4 1618.8 / 1618.8 0.9 % Sodium Chloride 1, 1000 / 1000 1074.2 / 1074.2 000 ML @ 125 mls/hr IVC . Q8H [facility] Rx#:[id number] FentaNYL (PF) 1,000 MCG 100 / 100 In 0.9 % Sodium Chloride 80 ML @ 0.5 MCG/KG/HR 4. 35 mls/hr IVC CONT [facility] Rx #:[id number] Levophed 4 MG In Dextrose 239.4 / 239.4 334.5 / 334.5 5% 250 ML @ 10 MCG/MIN 37.5 mls/hr IVC CONT [facility] Rx#:[id number] Diprivan 1,000 mg In 100 200 / 200 110.1 / 110.1 ml @ 30 MCG/KG/MIN 15.66 mls/hr IVC .Q6H24M [facility] Rx #:[id number] Zosyn 3.375 GM In 100 / 100 100 / 100 Dextrose 5% (Minibag+) 100 ML 100 ML @ 25 mls/hr IVPB Q8HR [facility] Rx#: [id number] Oral 0 / 0 Tube Feeding 67 / 67 0 / 0 Free Water 100 / 100 0 / 0 Free Water Intake Amount 200 / 200 0 / 0 Output: Urine 50 / 50 50 / 50 Urethral (Cotto) 50 / 50 50 / 50 Catheter 65 / 65 50 / 50 Gastric Drainage 250 / 250 0 / 0 Other: Weight 92.5 kg Blood Glucose* 136 145 Patient Weight 05/14/16 23:59 Weight 92.5 kg - General Appearance General appearance: moderate distress, sedated on ventilator, intubated EENT: mucous membranes moist Neck: no JVD, no carotid bruit, supple Respiratory: course breath sounds Cardiology: no murmurs, edema (1-2+ pretibial pitting edema b/l), regular rate, regular rhythm, normal S1, normal S2 Gastrointestinal: normoactive bowel sounds, no tenderness, no guarding Integumentary: no rash, warm and dry Neurologic: no focal deficit, no asterixis Additional Comments: Intubated/sedated Musculoskeletal: no deformities, no erythema, no cyanosis Results - Lab Results 05/14/16 03:37 05/14/16 03:37 Most recent lab results ABG pH 7.21 pH Units (7.32-7.45) L 05/14/16 08:20 ABG pCO2 56 mmHg (35-45) H 05/14/16 08:20 ABG pO2 80 mmHg (85-104) L 05/14/16 08:20 ABG HCO3 22.4 mEQ/L (21-27) 05/14/16 08:20 ABG O2 Saturation 93 % (95-98) L 05/14/16 08:20 Calcium 7.1 mg/dL (8.6-10.8) L 05/14/16 03:37 Phosphorus 7.4 mg/dL (2.3-4.7) H 05/14/16 03:37 Magnesium 1.6 mg/dL (1.6-2.6) 05/12/16 07:05 Urine Creatinine 126 mg/dL 05/13/16 09:12 Urine Sodium 29.0 mEq/L 05/13/16 09:12 I reviewed the above autogenerated date. Also reviewed current hospitalization notes, vitals, labs, I/Os, imaging. Also reviewed outpatient progress notes ( formerly pt of Dr. Barber but recently switched to Dr. Roger for PCP). I do not see any prior nephrology consults in his [facility] or in the [facility]. - Image Kidney/bladder ultrasound: report reviewed Consult Discharge Plan - Plan Referrals: Peña Barber MD [Primary Care Provider] -
--- NOTE | 2016-05-14 12:04 | Procedure Note ---
Date of procedure: 05/14/16 Pre-op diagnosis: JAIDEN from septick shock Post-op diagnosis: same Procedure: Triple lumen hemodialysis catheter Placement Date: 05/14/16 Time: 11:30 AM Indication: CVVHDF for JAIDEN Resident: Dr. Bhatt Attending: Dr. Sampson A time-out was completed verifying correct patient, procedure, site, and positioning. The patient was placed in a dependent position appropriate for central line placement based on the vein to be cannulated. The patients right side of neck was prepped and draped in sterile fashion. Patient was under IV sedation with fentanyl and precedex. A triple lumen hemodialysis catheter was introduced into the right internal jugular vein using the Seldinger technique and under ultrasound guidance. The catheter was threaded smoothly over the guide wire and appropriate blood return was obtained. Each lumen of the catheter was evacuated of air and flushed with sterile saline. The catheter was then sutured in place to the skin and a sterile dressing applied. Perfusion to the extremity distal to the point of catheter insertion was checked and found to be adequate. Dr. Sampson was present for the entire procedure. Chest x-ray showed new right IJ central venous line with the tip overlying the superior vena cava, no pneumothorax. Estimated Blood Loss: 10 cc. The patient tolerated the procedure well and there were no complications. Anesthesia: IV sedation Surgeon: Ashkan Bhatt Roller Repairer: Erik Sampson Estimated blood loss (cc): 10 Pathology: none sent Condition: stable Disposition: ICU
[2016-05-14] MEDS ORDERED: *HR* Metoprolol 5 MG/5 ML VIAL IVP ONE (12:05)
[2016-05-14] MEDS: *HR* Heparin 5,000 UNIT/ML VIAL IV PRN (13:31)
[2016-05-14] MEDS: PrismaSATE BGK 4/2.5 5,000 ML CRRT SCH ×6 (14:13→23:00)
[2016-05-14] MEDS ORDERED: Amiodarone Premix 360 MG/200 ML BAG IVC ONE (14:16)
[2016-05-14] MEDS: Calcium Chloride 4,000 MG in 0.9 % Sodium Chloride 1,000 ML CRRT SCH (14:17)
[2016-05-14] MEDS: Lacri-Lube 3.5 GM TUBE BOTH EYES SCH ×2 (15:45→20:41)
[2016-05-14] MEDS: Chlorhexidine Rinse 15 ML MOUTHWASH MM SCH ×2 (15:45→20:40)
[2016-05-14] MEDS: Calcium Gluconate 1,000 MG in D5% in Water 100 ML IVPB PRN ×3 (17:04→23:09)
[2016-05-14 18:17] LABS: Adenovirus Not Detected (Not Detect); Bordetella Pertussis Not Detected (Not Detect); Chlamydophila pneumoniae Not Detected (Not Detect); Coronavirus 229E ***DETECTED*** (Not Detect); Coronavirus HKU1 Not Detected (Not Detect); Coronavirus NL63 Not Detected (Not Detect); Coronavirus OC43 Not Detected (Not Detect); Human Metapneumovirus Not Detected (Not Detect); Human Rhinovirus/Enterovirus Not Detected (Not Detect); Influenza A Subtype 2009 H1 Not Detected (Not Detect); Influenza A Untypeable Not Detected (Not Detect); Influenza B Not Detected (Not Detect); Mycoplasma pneumoniae Not Detected (Not Detect); Parainfluenza Virus 1 Not Detected (Not Detect); Parainfluenza Virus 2 Not Detected (Not Detect); Parainfluenza Virus 3 Not Detected (Not Detect); Parainfluenza Virus 4 Not Detected (Not Detect); Respiratory Syncytial Virus Not Detected (Not Detect)
[2016-05-14] MEDS: Amiodarone Premix 360 MG/200 ML BAG IVC SCH (20:39)
[2016-05-15] MEDS: Ipratropium/Albuterol Neb 3 ML IH SCH ×5 (00:25→20:24)
[2016-05-15] MEDS: PrismaSATE BGK 4/2.5 5,000 ML CRRT SCH ×10 (03:03→20:21)
[2016-05-15 04:03] LABS: Ionized Calcium 1.17 mmol/L (1.15-1.35)
[2016-05-15 04:05] LABS: Nucleated Red Blood Cells 0.1 /100 WBC (0)
[2016-05-15 04:07] LABS: Hematocrit 39.3 % (37.5-50.1); Immature Platelets 9.8 % (1.1-6.1); Mean Corpuscular HGB Conc 33.1 g/dL (31.6-35.5); Mean Corpuscular Hemoglobin 30.9 pg (28.0-33.3); Mean Corpuscular Volume 93.3 fL (83.0-100.0); Mean Platelet Volume 10.5 fL (9.4-12.4); Red Blood Count 4.21 M/mcL (4.19-5.50); Red Cell Distribution Width 13.1 % (11.5-14.5)
[2016-05-15 04:11] LABS: Phosphorous 6.1 mg/dL (2.3-4.7); Potassium 4.8 mEq/L (3.5-4.5)
[2016-05-15 04:14] LABS: Calcium 9.2 mg/dL (8.6-10.8); Phosphorous 6.1 mg/dL (2.3-4.7); Potassium 4.8 mEq/L (3.5-4.5); Uric Acid 5.7 mg/dL (3.5-7.2)
[2016-05-15 04:14] LABS: Calcium 9.3 mg/dL (8.6-10.8)
[2016-05-15 04:15] LABS: Albumin 1.8 g/dL (3.5-5.0)
[2016-05-15 04:33] LABS: Platelet Count 86 K/mcL (140-400)
[2016-05-15 04:42] LABS: Lymphocytes # 0.7 K/mcL (0.6-4.6); Monocytes # 1.1 K/mcL (0.0-1.3); Neutrophils # 15.8 K/mcL (1.6-8.9)
[2016-05-15 04:43] LABS: Platelet Estimate Decreased (Normal); Toxic Granulation Present (Not Present)
[2016-05-15] MEDS: methylPREDNISolone 125 MG/2 ML VIAL IVP SCH ×3 (05:12→23:41)
[2016-05-15] MEDS: Piperacillin/Tazobactam 3.375 GM in D5% in Water (Mini-Bag+) 100 ML IVPB SCH ×3 (05:12→21:58)
[2016-05-15] MEDS: Calcium Chloride 4,000 MG in 0.9 % Sodium Chloride 1,000 ML CRRT SCH ×2 (05:34→18:12)
[2016-05-15 05:47] LABS: ABG Base Excess -2.7 mEq/L (-2.0 to 3.0); ABG HCO3 25.7 mEQ/L (21-27); ABG Oxygen Saturation 89 % (95-98); ABG PCO2 60 mmHg (35-45); ABG PH 7.24 pH Units (7.32-7.45); ABG PO2 66 mmHg (85-104); ABG TCO2 27.5 mEq/L (20-26); Blood Gas FiO2 50 %
[2016-05-15] MEDS: Amiodarone Premix 360 MG/200 ML BAG IVC SCH ×2 (06:08→17:17)
[2016-05-15] MEDS: *HR* Heparin 5,000 UNIT/ML VIAL SQ SCH ×3 (06:39→22:08)
[2016-05-15] MEDS: Budesonide/Formoterol 160/4.5 MDI IH SCH ×2 (07:49→20:24)
[2016-05-15] MEDS: Chlorhexidine Rinse 15 ML MOUTHWASH MM SCH ×2 (08:53→20:07)
[2016-05-15] MEDS: Pantoprazole 40 MG VIAL IVP SCH (08:54)
[2016-05-15] MEDS: Lacri-Lube 3.5 GM TUBE BOTH EYES SCH ×2 (08:54→20:08)
[2016-05-15] MEDS ORDERED: Levofloxacin 750 MG/150 ML 750 MG/150 ML BAG IVPB SCH (09:00)
--- NOTE | 2016-05-15 10:49 | Nephrology Progress Note ---
Date of Encounter: 05/15/16 Time of Encounter: 09:50 - Assessment and Plan (1) JAIDEN (acute kidney injury) Current Visit: Yes Status: Acute Oligoanuria with worsening renal function plus acute hyperphosphatemia, hyperkalemia, AGMA (with lactic acidosis). Started on CVVHDF with net goal of 25ml/hr, may increase to net negative of 50ml/hr as tolerated by patient. Dialysate 1250 with Replacement fluid 1250ml/hr for a goal Effluent Dose (ED) of at least 25. If frequent downtimes are noted, likely secondary to hypotension , then may need to increase flows for a higher ED. Continue citrate with calcium gtt. Will follow the [facility] protocol for titration and potential variables for comparison. Dose Rx by a presumed GFR near 20-30 while on Barbi Monitor the Phos, Mag, Calcium, K+ and SCr while on CVVHDF (2) Oligouria Current Visit: Yes Status: Acute (3) Hyperkalemia Current Visit: Yes Status: Acute (4) Hyperphosphatemia Current Visit: Yes Status: Acute (5) Lactic acidosis Current Visit: Yes Status: Acute (6) Septic shock Current Visit: Yes Status: Acute (7) COPD (chronic obstructive pulmonary disease) Current Visit: No Status: Chronic Management per ICU service Qualifiers: COPD type: emphysema Emphysema type: unspecified Qualified Code(s): J43.9 - Emphysema, unspecified Subjective Principal diagnosis: Acute on chronic hypercapnic and hypoxic respiratory failure Interval history: Afebrile. Patient remains sedated on mechanical ventilation, requiring levaphed to maintain MAP. Patient has only been on CVVHDF a few hours due to issues of blood pressure. Objective - Vital Signs Vital signs: Vital Signs Temp Pulse Resp BP Pulse Ox 05/15/16 10:00 141 14 90/63 95 05/15/16 09:26 14 105/92 94 05/15/16 09:00 97.5 F L 141 15 105/92 94 05/15/16 08:00 97.5 F L 138 12 103/67 96 05/15/16 07:48 14 93 05/15/16 07:39 138 05/15/16 07:00 85 13 113/72 91 05/15/16 06:12 13 100/50 92 05/15/16 06:00 89 12 100/50 92 05/15/16 05:00 86 12 108/58 92 05/15/16 04:29 12 105/72 91 05/15/16 04:00 94.7 F L 80 12 105/72 84 05/15/16 03:00 75 12 110/60 89 05/15/16 02:36 12 99/65 91 05/15/16 02:00 75 12 85/51 91 05/15/16 01:00 94.5 F L 101 12 115/67 92 05/15/16 00:25 12 111/68 93 05/15/16 00:00 94.4 F L 73 12 111/68 94 05/14/16 23:38 75 05/14/16 23:00 75 12 111/74 91 05/14/16 22:50 12 121/62 91 05/14/16 22:00 82 12 115/84 92 05/14/16 21:00 94.4 F L 81 12 90/71 95 05/14/16 20:25 12 103/53 89 05/14/16 20:00 71 12 103/53 88 05/14/16 19:00 86 12 97/67 97 05/14/16 18:24 12 102/61 97 05/14/16 18:00 77 12 95/68 97 05/14/16 17:00 82 12 94/59 97 05/14/16 16:00 97.4 F L 89 12 96/63 97 05/14/16 15:00 137 14 106/77 94 05/14/16 14:00 137 15 81/50 92 05/14/16 13:00 123 12 91/51 92 05/14/16 12:04 16 111/72 92 05/14/16 12:00 98.2 F 137 13 95/50 92 05/14/16 11:00 125 16 111/72 92 Intake and Output 05/14/16 05/15/16 05/15/16 23:59 07:59 15:59 Intake Total 61886.5 / 15897.5 705 / 705 100 / 100 Output Total 730 / 730 1239 / 1239 455 / 455 Balance 04444.5 / 94969.5 -534 / -534 -355 / -355 Intake: IV Fluids 97615.5 / 22360.5 705 / 705 100 / 100 Calcium Chloride 4,000 MG 340 / 340 300 / 300 In 0.9 % Sodium Chloride 1,000 ML @ 40 mls/hr CRRT CONT [facility] Rx#: [id number] PrismaSATE BGK 4/2.5 5, 68201 / 92481 0 / 0 000 ML @ 1250 mls/hr CRRT CONT [facility] Rx#:[id number] Amiodarone 360mg/200mL 200 / 200 200 / 200 Drip Premix 360 mg In 200 ml @ 0.5 MG/MIN 16.667 mls/hr IVC CONT [facility] Rx#: [id number] FentaNYL (PF) 1,000 MCG 100 / 100 45 / 45 In 0.9 % Sodium Chloride 80 ML @ 0.5 MCG/KG/HR 4. 35 mls/hr IVC CONT [facility] Rx #:[id number] Levophed 4 MG In Dextrose 165.5 / 165.5 50 / 50 5% 250 ML @ 10 MCG/MIN 37.5 mls/hr IVC CONT [facility] Rx#:[id number] Diprivan 1,000 mg In 100 100 / 100 100 / 100 ml @ 30 MCG/KG/MIN 15.66 mls/hr IVC .Q6H24M [facility] Rx #:[id number] Calcium Gluconate 1,000 220 / 220 110 / 110 MG In Dextrose 5% 100 ML @ 220 mls/hr IVPB ON[facility] Rx#:[id number] Zosyn 3.375 GM In 100 / 100 Dextrose 5% (Minibag+) 100 ML 100 ML @ 25 mls/hr IVPB Q12HR [facility] Rx#: [id number] Oral 0 / 0 0 / 0 Tube Feeding 0 / 0 Free Water 0 / 0 Free Water Intake Amount 0 / 0 0 / 0 Output: Barbi 610 / 610 1004 / 1004 455 / 455 Catheter 20 / 20 35 / 35 0 / 0 Gastric Drainage 100 / 100 200 / 200 Other: Blood Glucose* 148 154 - General Appearance General appearance: Present: well-developed, well-nourished, appears started age , sedated on ventilator, intubated EENT: Present: ATNC, mucous membranes moist Additional Comments: HD catheter in RIJ. Respiratory: Present: course breath sounds (intubated on mechanical ventilation) Cardiology: Present: no murmurs, edema (1+ bilaterally), regular rate, regular rhythm Dialysis Vascular Access: Venous Catheter Gastrointestinal: Present: no tenderness Integumentary: Present: no rash, warm and dry Additional Comments: unable to assess due to sedation Musculoskeletal: Present: no erythema, no cyanosis - Lab 05/15/16 03:45 05/15/16 03:45 Most recent lab results ABG pH 7.24 pH Units (7.32-7.45) L 05/15/16 05:35 ABG pCO2 60 mmHg (35-45) H 05/15/16 05:35 ABG pO2 66 mmHg (85-104) L 05/15/16 05:35 ABG HCO3 25.7 mEQ/L (21-27) 05/15/16 05:35 ABG O2 Saturation 89 % (95-98) L 05/15/16 05:35 Calcium 9.2 mg/dL (8.6-10.8) 05/15/16 03:45 Phosphorus 6.1 mg/dL (2.3-4.7) H 05/15/16 03:45 Magnesium 2.0 mg/dL (1.6-2.6) 05/15/16 03:45 Urine Creatinine 126 mg/dL 05/13/16 09:12 Urine Sodium 29.0 mEq/L 05/13/16 09:12 Consult Discharge Plan - Plan Referrals: Peña Barber MD [Primary Care Provider] -
[2016-05-15] MEDS: Bisacodyl 10 MG RECTAL SUPPOSITORY RC SCH (14:42)
--- NOTE | 2016-05-15 16:46 | Pulmonology Progress Note ---
Date of Encounter: 05/15/16 Time of Encounter: 16:44 Assessment and Plan (1) Acute on chronic respiratory failure with hypoxia and hypercapnia Current Visit: Yes Status: Acute Chest XR from admission showed extensive infiltrate at right lung base which is new compared to previous chest x-ray from 05/01/2016. Awaiting return of renal function for possible CTA due to history of previous PE and worsening shortness of breath that was somewhat acute despite being on steroid taper from previous discharge from recent hospitalization with COPD exacerbation. Well's score of 4. Continue sedation and intubation. Antibiotics deescalated to coverage with Zosyn at this time. Continue Duonebs, symbicort, IV steroids decreased to 125mg Q8, and mechanical ventilation. (2) Acute exacerbation of chronic obstructive pulmonary disease Current Visit: Yes Status: Acute Likely secondary to hospital-acquired bacterial pneumonia. See above. (3) Severe sepsis Current Visit: Yes Status: Acute This is likely due to underlying hospital-acquired bacterial pneumonia, with lactic acidosis, hypotension and acute kidney injury. Lactic acid decreased to 2.6 on 05/14. blood pressure stable at this time. Patient on Zosyn. Legionella and strep pneumo antigens were negative. (4) Hospital-acquired pneumonia Current Visit: Yes Status: Acute See above (5) Lactic acidosis Current Visit: Yes Status: Acute Trending down. Continue Zosyn and IV fluids. (6) JAIDEN (acute kidney injury) Current Visit: Yes Status: Acute Management per nephrology. (7) DVT prophylaxis Current Visit: Yes Status: Acute Heparin subcutaneous 3 times a day. Subjective Principal diagnosis: Acute on chronic hypercapnic and hypoxic respiratory failure Interval history: Patient seen and examined. In acute exacerbation of chronic COPD. Continues to be sedated and on ventilator. No acute events overnight. Objective PUL Vital signs: Last Vital Signs Temp 97.9 F 05/15/16 12:00 Pulse 78 05/15/16 15:00 Resp 12 05/15/16 15:00 BP 119/75 05/15/16 15:00 Pulse Ox 88 05/15/16 15:00 General appearance: no acute distress, other (patient sedated) Eyes: nonicteric ENT: oropharynx moist Neck: supple Effort: mildly labored Auscultation: bilateral: diminished breath sounds (diffusely), wheezes Cardiovascular: regular rate and rhythm Gastrointestinal: normoactive bowel sounds, non-distended Integumentary: normal Extremities: no cyanosis Musculoskeletal: no deformities other (patient sedated) Ventilator Settings Ventilator Settings: Ventilator Settings, Last 8 Hours Ventilator Mode VC+ Ventilator Mode VC+ Ventilator Mode VC+ Ventilator Mode VC+ Ventilator Mode VC+ Ventilator Mode VC+ Ventilator Mode VC+ Ventilator Mode VC+ Ventilator Mode VC+ Ventilator Mode VC+ Ventilator Tidal Volume 600 Setting Ventilator Tidal Volume 600 Setting Ventilator Tidal Volume 600 Setting Ventilator Tidal Volume 600 Setting Ventilator Tidal Volume 600 Setting Ventilator Tidal Volume 600 Setting Ventilator Tidal Volume 600 Setting Ventilator Tidal Volume 600 Setting Ventilator Tidal Volume 600 Setting Ventilator Tidal Volume 600 Setting Ventilator Respiratory Rate 12 Setting Ventilator Respiratory Rate 12 Setting Ventilator Respiratory Rate 12 Setting Ventilator Respiratory Rate 12 Setting Ventilator Respiratory Rate 12 Setting Ventilator Respiratory Rate 12 Setting Ventilator Respiratory Rate 12 Setting Ventilator Respiratory Rate 12 Setting Ventilator Respiratory Rate 12 Setting Ventilator Respiratory Rate 12 Setting Actual Respiratory Rate 12 Actual Respiratory Rate 12 Actual Respiratory Rate 13 Actual Respiratory Rate 12 Actual Respiratory Rate 12 Actual Respiratory Rate 17 Actual Respiratory Rate 14 Actual Respiratory Rate 14 Actual Respiratory Rate 14 Actual Respiratory Rate 15 Positive End Expiratory 5 Pressure Positive End Expiratory 5 Pressure Positive End Expiratory 5 Pressure Positive End Expiratory 5 Pressure Positive End Expiratory 5 Pressure Positive End Expiratory 5 Pressure Positive End Expiratory 5 Pressure Positive End Expiratory 5 Pressure Positive End Expiratory 5 Pressure Positive End Expiratory 5 Pressure Peak Inspiratory Airway 43 Pressure Peak Inspiratory Airway 43 Pressure Peak Inspiratory Airway 42 Pressure Peak Inspiratory Airway 46 Pressure Peak Inspiratory Airway 41 Pressure Peak Inspiratory Airway 41 Pressure Peak Inspiratory Airway 46 Pressure Peak Inspiratory Airway 40 Pressure Peak Inspiratory Airway 41 Pressure Peak Inspiratory Airway 42 Pressure Results - Laboratory Findings CBC and BMP: 05/15/16 03:45 05/15/16 03:45 ABG ABG pH 7.24 pH Units (7.32-7.45) L 05/15/16 05:35 ABG pCO2 60 mmHg (35-45) H 05/15/16 05:35 ABG pO2 66 mmHg (85-104) L 05/15/16 05:35 ABG O2 Saturation 89 % (95-98) L 05/15/16 05:35 PT/INR, D-dimer PT 10.2 Seconds (9.4-12.1) 05/12/16 07:05 Abnormal lab findings: Abnormal lab results WBC 18.0 K/mcL (4.3-11.1) H 05/15/16 03:45 Plt Count 86 K/mcL (140-400) L 05/15/16 03:45 Band Neutrophils % 40.0 % (0-4) H 05/15/16 03:45 Metamyelocytes % 2.0 % (0) H 05/15/16 03:45 Neutrophils # 15.8 K/mcL (1.6-8.9) H 05/15/16 03:45 Nucleated RBCs/100 WBC 0.1 /100 WBC (0) H 05/15/16 03:45 Toxic Granulation Present (Not Present) A 05/15/16 03:45 Platelet Estimate Decreased (Normal) L 05/15/16 03:45 Immature Plt Fraction 9.8 % (1.1-6.1) H 05/15/16 03:45 APTT 20.6 Seconds (26.0-36.0) L 05/12/16 07:05 ABG pH 7.24 pH Units (7.32-7.45) L 05/15/16 05:35 ABG pCO2 60 mmHg (35-45) H 05/15/16 05:35 ABG pO2 66 mmHg (85-104) L 05/15/16 05:35 ABG Total CO2 27.5 mEq/L (20-26) H 05/15/16 05:35 ABG O2 Saturation 89 % (95-98) L 05/15/16 05:35 ABG Base Excess -2.7 mEq/L (-2.0 to 3.0) L 05/15/16 05:35 Sodium 135 mEq/L (136-145) L 05/15/16 03:45 Potassium 4.8 mEq/L (3.5-4.5) H 05/15/16 03:45 BUN 49 mg/dL (8-26) H 05/15/16 03:45 Creatinine 3.72 mg/dL (0.72-1.25) H 05/15/16 03:45 Est GFR ( Amer) 20 (> 60) L 05/15/16 03:45 Est GFR (Non-Af Amer) 16 (> 60) L 05/15/16 03:45 Glucose 154 mg/dL (70-99) H 05/15/16 03:45 POC Glucose 110 (58-89) H 05/15/16 12:24 Lactic Acid 2.6 mmol/L (0.5-2.2) H 05/14/16 08:15 Phosphorus 6.1 mg/dL (2.3-4.7) H 05/15/16 03:45 AST 170 Units/L (5-34) H 05/15/16 03:45 ALT 893 Units/L (0-55) H 05/15/16 03:45 B-Natriuretic Peptide 192 pg/mL (0-100) H 05/12/16 07:05 Albumin 1.8 g/dL (3.5-5.0) L 05/15/16 03:22 Urine Clarity Cloudy (Clear) A 05/13/16 09:50 Urine Protein 30 mg/dL (Neg-Trace) H 05/13/16 09:50 Urine Blood Large (Negative) H 05/13/16 09:50 Urine Microscopic RBC 3-5 per hpf (0-3) H 05/13/16 09:50 Urine Microscopic WBC 5-15 per hpf (0-3) H 05/13/16 09:50 Ur Squamous Epith Cells Many per lpf (None-Few) H 05/13/16 09:50 Coronavirus 229E (PCR) DETECTED (Not Detect) A 05/14/16 16:55 - Microbiology Findings Microbiology Findings: Microbiology, Last 48 Hours 05/12/16 17:00 Sputum Culture - Final Sputum No growth. - Clinical Findings Intake & Output: Intake & Output 05/15/16 05/15/16 05/15/16 07:59 15:59 23:59 Intake Total 705 / 705 03992 / 86497 114 / 114 Output Total 1239 / 1239 1351 / 1351 172 / 172 Balance -534 / -534 63923 / 97557 -58 / -58 Consult Discharge Plan - Plan Referrals: Peña Barber MD [Primary Care Provider] - - Attending Attestation I examined this patient and my medical decision-making was reviewed with the PUMP ATTENDANT/PA/Advanced Practice Nurse/Resident Physician. I agree with the documented findings, disposition and treatment plan as described except to the extent set forth below.
[2016-05-15] MEDS: *HR* Heparin 5,000 UNIT/ML VIAL IV PRN (17:21)
--- NOTE | 2016-05-15 17:45 | Electrocardiograph Report ---
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
[2016-05-16] MEDS: Ipratropium/Albuterol Neb 3 ML IH SCH ×7 (00:13→23:23)
[2016-05-16] MEDS: FentaNYL (PF) 1,000 MCG in 0.9 % Sodium Chloride 80 ML IVC SCH ×2 (01:39→22:01)
[2016-05-16] MEDS: PrismaSATE BGK 4/2.5 5,000 ML CRRT SCH ×12 (01:40→21:00)
[2016-05-16] MEDS: Norepinephrine 4 MG in D5% in Water 250 ML IVC SCH ×2 (01:42→19:32)
[2016-05-16] MEDS: Amiodarone Premix 360 MG/200 ML BAG IVC SCH ×2 (04:19→16:28)
[2016-05-16 04:33] LABS: Calcium 10.2 mg/dL (8.6-10.8); Phosphorous 4.7 mg/dL (2.3-4.7); Potassium 4.8 mEq/L (3.5-4.5)
[2016-05-16 04:34] LABS: Albumin 1.8 g/dL (3.5-5.0)
[2016-05-16] MEDS: Piperacillin/Tazobactam 3.375 GM in D5% in Water (Mini-Bag+) 100 ML IVPB SCH ×3 (05:46→22:00)
[2016-05-16] MEDS: *HR* Heparin 5,000 UNIT/ML VIAL SQ SCH ×2 (05:46→14:42)
[2016-05-16] MEDS: Calcium Chloride 4,000 MG in 0.9 % Sodium Chloride 1,000 ML CRRT SCH ×2 (06:33→21:10)
[2016-05-16] MEDS: Budesonide/Formoterol 160/4.5 MDI IH SCH ×2 (07:35→20:01)
[2016-05-16 07:48] LABS: Basophils % 0.1 %; Hematocrit 39.1 % (37.5-50.1); Hemoglobin 13.4 g/dL (12.9-16.9); Immature Granulocytes % 0.6 % (0-4); Lymphocytes # 0.2 K/mcL (0.6-4.6); Lymphocytes % 1.1 %; Mean Corpuscular HGB Conc 34.3 g/dL (31.6-35.5); Mean Corpuscular Hemoglobin 31.7 pg (28.0-33.3); Mean Corpuscular Volume 92.4 fL (83.0-100.0); Mean Platelet Volume 11.8 fL (9.4-12.4); Monocytes # 0.4 K/mcL (0.0-1.3); Monocytes % 2.7 %; Neutrophils # 13.3 K/mcL (1.6-8.9); Nucleated Red Blood Cells 0.4 /100 WBC (0); Red Blood Count 4.23 M/mcL (4.19-5.50); Red Cell Distribution Width 13.2 % (11.5-14.5); Segmented Neutrophils % 95.5 %
[2016-05-16 07:49] LABS: Platelet Count 69 K/mcL (140-400)
[2016-05-16 08:17] LABS: Platelet Estimate Decreased (Normal)
[2016-05-16] MEDS: Chlorhexidine Rinse 15 ML MOUTHWASH MM SCH ×2 (08:42→20:35)
[2016-05-16] MEDS: methylPREDNISolone 125 MG/2 ML VIAL IVP SCH ×2 (08:42→16:28)
[2016-05-16] MEDS: Bisacodyl 10 MG RECTAL SUPPOSITORY RC SCH (08:42)
[2016-05-16] MEDS: Pantoprazole 40 MG VIAL IVP SCH (08:42)
[2016-05-16] MEDS ORDERED: Levofloxacin 750 MG/150 ML 750 MG/150 ML BAG IVPB SCH (09:00)
[2016-05-16] MEDS ORDERED: *HR* Adenosine 6 MG/2 ML VIAL IVP ONE (09:40)
--- NOTE | 2016-05-16 10:08 | Cardiology Consult Note ---
Date of Encounter: 05/16/16 Time of Encounter: 10:15 Assessment and Plan (1) Acute on chronic respiratory failure with hypoxia and hypercapnia Current Visit: Yes Status: Acute Per Cardiology: Chest XR from admission showed extensive infiltrate at right lung base which was new compared to previous chest x-ray from 05/01/2016. Patient with remote hx of PE. Per primary service, bilateral venous duplex pending today. No CTA at this point d/t JAIDEN to r/o PE. On Duonebs, symbicort, IV steroids, Antibiotics, and mechanical ventilation. Serology + for coronavirus 229E. (2) Acute exacerbation of chronic obstructive airways disease Current Visit: No Status: Acute Per Cardiology: Known Hx of COPD and nicotine abuse. CXR showed severe bullous emphysema. Management per primary service. (3) Right lower lobe pneumonia Current Visit: Yes Status: Acute Per Cardiology: Management per primary service. WBC peak at 21.3, now 13.9. Afebrile, on warming blanket. Qualifiers: Pneumonia type: due to unspecified organism Qualified Code(s): J18.1 - Lobar pneumonia, unspecified organism (4) Severe sepsis Current Visit: Yes Status: Acute Per Cardiology: Management per primary service with suspicion driven by hospital-acquired bacterial pneumonia, with lactic acidosis, hypotension and acute kidney injury. Systolic blood pressure currently in the 110s and off the Levophed. (5) Lactic acid acidosis Current Visit: Yes Status: Acute Per Cardiology: Peak 6.4, now 2.6. Management per primary service. (6) JAIDEN (acute kidney injury) Current Visit: Yes Status: Acute Per Cardiology: Nephrology consulted for "oligoanuria with worsening renal function plus acute hyperphosphatemia, hyperkalemia, AGMA (with lactic acidosis)". On CVVHDF managed by nephrology. (7) Sepsis Current Visit: Yes Status: Acute Qualifiers: Sepsis type: sepsis due to unspecified organism Qualified Code(s): A41.9 - Sepsis, unspecified organism (8) Atrial flutter with rapid ventricular response Current Visit: Yes Status: Acute Per Cardiology: Previous records reviewed and no known afib/flutter hx appreciated. Patient now aflutter RVR in 150's, SBP stable 110's. Per CARE MANAGEMENT COORDINATOR, patient did receive IV 6mg Adenosine yesterday and was amio loaded with Amio gtt now at 0.5mg/min. Suspect aflutter driven by above mentioned medical comorbidities. Will discuss and review with Dr. Rosina Rosenberg. No need for emergent DCCV at this juncture d/t SBP stable. Anticipate will be difficult to rate control until underlying issues improve/resolve. Patient currently full code. No family currently present at bedside. Patient and family well known to me from outpatient Cardiology clinic. Last echo 06/2015 with EF 60%, moderate diastolic dysfunction, mild-mod TR, mild MT, mild-mod PHTN with RVSP 49mm Hg. Regarding long-term AC, [id number] = 5. Ideally, would rec anticoagulate, however PLT now down from 240 to 69. On Citrate and Heparin for DVT prophylaxis and CRRT. Will need to re-address as condition improves. Will not add asa at this time either with decreased PLT. (9) CAD (coronary artery disease) Current Visit: No Status: Chronic Per Cardiology: Known hx CAD. Last heart catheterization September 2014: left main 20%, proximal LAD patent stent with 20% stenosis, mid circumflex 20% stenosis, OM1 20% stenosis, and mid RCA 50% stenosis. On asa, plavix, BB, Imdur, ARB, statin at home-- all on hold currently d/t decreased PLT, hypotension, and elevated LFTs ( AST = 170, ALT = 893). Consider echo, however once HR controlled. Qualifiers: Coronary Disease-Associated Artery/Lesion type: [place] artery [place] vs. transplanted heart: tejon heart Associated angina: with stable angina Qualified Code(s): I25.118 - Atherosclerotic heart disease of te[place] coronary artery with other forms of angina pectoris Discussion w patient/family: Thank you for involving us in the care of your patient. Please call with any questions. Will monitor for family. Consider palliative consult to address code status. History of Present Illness Consult date: 05/16/16 Requesting physician: Luis Roa Consult reason: Aflutter RVR History of present illness: Mr. Rothman is a 71 year old male with a relevant past medical history of CAD, COPD, nicotine abuse, history of PE, hyperlipidemia, hypertension. I last saw patient in Cardiology office 12/2015. Previous records reviewed the patient apparently recently discharged for acute COPD exacerbation and pneumonia. Appears to have been readmitted now intubated for worsening acute on chronic respiratory failure, pneumonia, and acute kidney injury on CRRT. Cardiology consult today for a flutter with RVR. Patient currently intubated and sedated with fentanyl and propofol. No family currently present at bedside. Past Med Surg Social Fam HX - Past Medical History Source: unable to obtain, old records reviewed Medical history: COPD, coronary artery disease, GERD, hyperlipidemia, hypertension, myocardial infarction, pulmonary embolus Psychiatric history: no psych history - Past Surgical History Surgical History: angioplasty/stent - Social History Smoking Status: Current every day smoker Smokeless Tobacco Status: No Alcohol use: none Drug use: none - Family History Mother Living Status: Hx Family Cardiac Disorders: No Hx Family Respiratory Disorders: Yes Hx Family Cancer: No Hx Family GI Disorders: No Hx Family Endocrine Disorder: No Hx Family Neuromuscular Disorders: No Hx Family Neurologic Disorders: Yes Hx Family HEENT Disorders: No Hx Family Autoimmune Disorders: No Father Living Status: Hx Family Cardiac Disorders: Yes Hx Family Respiratory Disorders: No Hx Family Cancer: No Hx Family GI Disorders: Yes Hx Family Endocrine Disorder: Yes Hx Family Neuromuscular Disorders: No Hx Family Neurologic Disorders: No Hx Family HEENT Disorders: No Hx Family Autoimmune Disorders: No Medications and Allergies Aspirin 81 mg PO DAILY 10/05/14 [History] Bumetanide [Bumex] 0.5 mg PO BID 10/05/14 [History] Clopidogrel [Plavix] 75 mg PO DAILY 10/05/14 [History] Isosorbide MONOnitrate (24 HR) [Imdur] 60 mg PO DAILY 10/05/14 [History] Losartan [Cozaar] 25 mg PO DAILY 10/05/14 [History] Metoprolol [Lopressor] 25 mg PO BID 10/05/14 [History] Nitroglycerin 0.4 mg SL Q5MIN PRN 10/05/14 [History] OxyCODONE/APAP 10/325 [Percocet 10/325] 1 tab PO Q6HR PRN 10/05/14 [History] Pravastatin Sodium [Pravachol] 40 mg PO DAILY 10/05/14 [History] Albuterol Sulfate [Proair Hfa] 2 puff IH BID 06/17/15 [History] Budesonide/Formoterol 160/4.5 [Symbicort 160/4.5] 2 puff ID BID 06/17/15 [ History] PredniSONE 10 mg PO DAILY #33 tablet 05/03/16 [Rx] Allergies furosemide [From Lasix] Allergy (Verified 05/12/16 07:05) Chest Pain hydrochlorothiazide Allergy (Verified 05/12/16 07:05) Chest Pain Sulfa (Sulfonamide Antibiotics) Allergy (Verified 05/12/16 07:05) Hives Hydromorphone [From Dilaudid] Adverse Reaction (Verified 05/12/16 07:05) Nausea ROS unobtainable: due to endotracheal tube, other (sedated on propofol and fentanyl) All Systems Review: A 10-system review of systems was performed and is negative for pertinent findings except as documented above in the HPI. - Cardiovascular Cardiovascular: as per HPI Physical Examination Vital Signs, Last 4 Hours Pulse Resp BP Pulse Ox 05/16/16 10:00 149 18 126/68 92 05/16/16 09:25 19 113/58 92 05/16/16 09:12 149 24 139/79 92 05/16/16 09:00 149 24 139/79 92 05/16/16 08:00 147 17 132/76 94 05/16/16 07:30 16 148/84 92 05/16/16 07:27 120 05/16/16 07:00 120 16 152/76 93 05/16/16 06:26 13 126/69 94 HEENT: Atraumatic, Normocephaly Neck: Normal carotid pulses Cardiac: No Murmur, Other (Irregularly irregular) Lungs: Other (Intubated on ventilator, decreased to bilateral bases) Neuro: Other (Sedated, positive spontaneous movement of upper extremities and grimacing noted) Abdomen: Soft Skin: No rashes noted on visualized skin Extremities: Other (+1-2 pitting edema to bilateral lower extremities, +1-2 nonpitting to bilateral upper extremities) Other: [place], dark yellow urine Results 05/16/16 07:35 05/16/16 04:10 Lab Results Laboratory Tests 05/03/16 05/12/16 05/12/16 03:52 07:05 07:05 WBC 18.7 H Plt Count 240 Creatinine 1.12 1.30 H Est GFR (Non-Af Amer) > 60 55 L Magnesium AST ALT Troponin I Albumin Coronavirus 229E (PCR) 05/12/16 05/13/16 05/14/16 07:05 03:10 03:37 WBC 21.3 H Plt Count Creatinine 4.64 H D Est GFR (Non-Af Amer) 13 L Magnesium AST ALT Troponin I 0.02 Albumin Coronavirus 229E (PCR) 05/14/16 05/15/16 05/16/16 16:55 03:45 04:10 WBC Plt Count Creatinine 2.45 H Est GFR (Non-Af Amer) 26 L Magnesium 2.0 AST 170 H ALT 893 H Troponin I Albumin 1.8 L Coronavirus 229E (PCR) DETECTED A 05/16/16 07:35 WBC 13.9 H Plt Count 69 L Creatinine Est GFR (Non-Af Amer) Magnesium AST ALT Troponin I Albumin Coronavirus 229E (PCR) ITS Impressions Chest X-Ray 05/12/16 06:55 IMPRESSION: Extensive infiltrate right lung base new since prior examination D/ / Bernardino Sen MD / Bernardino Sen MD Interpreting Provider: Bernardino Sen MD Chest X-Ray 05/12/16 09:52 IMPRESSION: 1. Endotracheal tube is positioned approximately 5 cm above the tana. 2. NG tube present with distal tip in the gastric body, and side port below the gastroesophageal junction. 3. Persistent, extensive right-sided airspace disease concerning for pneumonia. 4. Severe bullous emphysema. D/ / 05/12/2016 10:49:18 Ramone Rojas MD / vega Interpreting Provider: Ramone Rojas MD X-Ray 05/12/16 09:52 IMPRESSION: 1. Endotracheal tube is positioned approximately 5 cm above the tana. 2. NG tube present with distal tip in the gastric body, and side port below the gastroesophageal junction. 3. Persistent, extensive right-sided airspace disease concerning for pneumonia. 4. Severe bullous emphysema. D/ / 05/12/2016 10:49:18 Ramone Rojas MD / vega Interpreting Provider: Ramone Rojas MD Retroperitoneum Ultrasound 05/13/16 09:15 IMPRESSION: Slightly suboptimal evaluation of left kidney. No definite hydronephrosis. D/ / Ewa Schuler MD / Ewa Schuler MD Interpreting Provider: Ewa Schuler MD Chest X-Ray 05/14/16 05:26 IMPRESSION: Airspace disease in the mid to lower lungs has increased on the left and is unchanged on the right. Stable right pleural effusion. D/ / Shimon Gao MD / Shimon Gao MD Interpreting Provider: Shimon Gao MD Chest X-Ray 05/14/16 12:03 IMPRESSION: New right internal jugular central venous line with the tip overlying the superior vena cava. No pneumothorax. Stable right lower lobe airspace disease. D/ / 05/14/2016 12:48:43 Vanessa Gomez MD / Kailey Soni Interpreting Provider: Vanessa Gomez MD Intake & Output 05/13/16 05/14/16 05/15/16 05/16/16 23:59 23:59 23:59 23:59 Intake Total 6381.0 / 6381.0 86096.2 / 62393.2 18837 / 55145 2390 / 2390 Output Total 765 / 765 905 / 905 3848 / 3848 2016 Balance 5616.0 / 5616.0 33239.2 / 22367.2 39471 / 77755 373 / 373 Weight 98.5 kg 90.2 kg Active Medications Albuterol/Ipratropium (Duoneb) 3 ml IH [id number] [facility] PRN Reason: Protocol Stop: 11/11/16 12:01 Last Admin: 05/16/16 07:35 Dose: 3 ml Artificial Tears (Lacri-Lube) 1 appl BOTH EYES BID TSALIN PRN Reason: Protocol Stop: 11/13/16 15:20 Last Admin: 05/15/16 20:08 Dose: 1 appl Bisacodyl (Dulcolax) 10 mg RC DAILY [facility] Stop: 11/14/16 13:01 Last Admin: 05/16/16 08:42 Dose: 10 mg Budesonide/Formoterol Fumarate (Symbicort) 2 puff IH BIDR [facility] PRN Reason: Protocol Stop: 11/12/16 10:01 Last Admin: 05/16/16 07:35 Dose: 2 puff Chlorhexidine Gluconate (Chlorhexidine Rinse) 15 ml MM BID [facility] Stop: 11/13/16 15:20 Last Admin: 05/16/16 08:42 Dose: 15 ml Heparin Sodium (Porcine) (Heparin) 5,000 unit SQ Q8HCO [facility] Stop: 11/11/16 09:46 Last Admin: 05/16/16 05:46 Dose: 5,000 unit Heparin Sodium (Porcine) (Heparin) 0 unit IV ONCE PRN PRN Reason: SEE COMMENTS Stop: 11/13/16 09:02 Last Admin: 05/15/16 17:21 Dose: 13,000 unit Fentanyl Citrate 1,000 mcg/ (Sodium Chloride) 100 mls @ 4.35 mls/hr IVC CONT [facility]; 0.5 MCG/KG/HR PRN Reason: Protocol Stop: 11/11/16 11:01 Last Infusion: 05/16/16 10:09 Dose: 2.5 mcg/kg/hr, 21.75 mls/hr Norepinephrine Bitartrate 4 mg (/ Dextrose) 250 mls @ 37.5 mls/hr IVC CONT [facility] ; 10 MCG/MIN PRN Reason: Protocol Stop: 11/11/16 16:01 Last Admin: 05/16/16 01:42 Dose: Not Given Propofol (Diprivan) 1,000 mg in 100 mls @ 15.66 mls/hr IVC .Q6H24M [facility]; 30 MCG/ KG/MIN PRN Reason: Protocol Stop: 11/11/16 16:31 Last Admin: 05/16/16 10:14 Dose: 30 mcg/kg/min, 15.66 mls/hr Sodium Chloride (0.9 % Sodium Chloride) 1,000 mls @ 0 mls/hr PRIME .Q0M [facility] PRN Reason: As Directed Stop: 11/13/16 09:02 CRRT Dialysis Solution (Prismasate Bgk 4/2.5) 5,000 mls @ 1,250 mls/hr CRRT CONT [facility] Stop: 11/13/16 09:16 Last Admin: 05/16/16 08:41 Dose: 1,250 mls/hr CRRT Dialysis Solution (Prismasate Bgk 4/2.5) 5,000 mls @ 1,250 mls/hr CRRT CONT [facility] Stop: 11/13/16 09:16 Last Admin: 05/16/16 08:41 Dose: 1,250 mls/hr Sodium Chloride (0.9 % Sodium Chloride) 20 mls @ 0 mls/hr IV CONT [facility] PRN Reason: As Directed Stop: 11/13/16 09:16 Last Admin: 05/16/16 09:14 Dose: Not Given Calcium Chloride 4,000 mg/ (Sodium Chloride) 1,040 mls @ 40 mls/hr CRRT CONT [facility] PRN Reason: Protocol Stop: 11/13/16 09:16 Last Titration: 05/16/16 10:11 Dose: 75 ml/hr, 75 mls/hr Citrate (Acd-A) 500 mls @ 40 mls/hr CRRT CONT [facility] PRN Reason: Protocol Stop: 11/13/16 09:16 Last Admin: 05/15/16 23:41 Dose: 40 mls/hr Calcium Gluconate 1,000 mg/ (Dextrose) 110 mls @ 220 mls/hr IVPB ONCE PRN PRN Reason: SEE COMMENTS Stop: 11/13/16 09:02 Last Infusion: 05/15/16 00:28 Dose: Infused Calcium Gluconate 2,000 mg/ (Dextrose) 120 mls @ 220 mls/hr IVPB ONCE PRN PRN Reason: SEE COMMENTS Stop: 11/13/16 09:02 Amiodarone HCl/Dextrose (Amiodarone 360mg/200ml Drip Premix) 360 mg in 200 mls @ 16.667 mls/hr IVC CONT [facility] PRN Reason: 0.5 MG/MIN Stop: 11/13/16 14:31 Last Infusion: 05/16/16 10:11 Dose: 0.5 mg/min, 16.667 mls/hr Piperacillin Sod/Tazobactam (Sod 3.375 gm/ Dextrose) 100 mls @ 25 mls/hr IVPB Q8H [facility] PRN Reason: Protocol Stop: 11/13/16 18:01 Last Infusion: 05/16/16 10:10 Dose: Infused Methylprednisolone (Solu-Medrol) 125 mg IVP Q8HR [facility] Stop: 11/14/16 16:01 Last Admin: 05/16/16 08:42 Dose: 125 mg Naloxone HCl (Narcan) 0.4 mg IVP Q2MIN PRN PRN Reason: Opioid Reversal Stop: 11/11/16 09:26 Ondansetron HCl (Zofran) 4 mg IVP Q8HR PRN PRN Reason: Nausea And Vomiting Stop: 11/11/16 09:26 Pantoprazole Sodium (Protonix) 40 mg IVP DAILY [facility] Stop: 11/11/16 09:31 Last Admin: 05/16/16 08:42 Dose: 40 mg - Imaging and Cardiology Chest Xray: report reviewed Echo: report reviewed Cardiac cath: report reviewed - EKG Interpretation EKG results cardiology: personally reviewed (A flutter with RVR in the 140s), other (Heart rate currently in the 150s on telemetry, atrial flutter on tele) Consult Discharge Plan - Plan Referrals: Peña Barber MD [Primary Care Provider] -
--- NOTE | 2016-05-16 10:12 | Nephrology Progress Note ---
Date of Encounter: 05/16/16 Time of Encounter: 10:05 - Assessment and Plan (1) JAIDEN (acute kidney injury) Current Visit: Yes Status: Acute Consulted for oligoanuria with worsening renal function plus acute hyperphosphatemia, hyperkalemia, AGMA (with lactic acidosis). Started on CVVHDF with net goal of 25ml/hr, continue with plan to increase to net negative of 50ml/hr as tolerated by patient. Dialysate 1250 with Replacement fluid 1250ml/hr for a goal Effluent Dose (ED) of 27. Continue citrate with calcium gtt. Will follow the [place] protocol for titration and potential variables for comparison.. Dose Rx by a presumed GFR near 20-30 while on Barbi Monitor the Phos, Mag, Calcium, K+ and SCr while on CVVHDF. Improvement in electrolytes and SCR today with Phos 6.1->4.7, Calcium 9.2->10.2 , K+ 4.8->4.8 and SCr 3.63->2.45 (2) Oligouria Current Visit: Yes Status: Acute (3) Hyperkalemia Current Visit: Yes Status: Acute (4) Hyperphosphatemia Current Visit: Yes Status: Acute (5) Lactic acidosis Current Visit: Yes Status: Acute (6) Septic shock Current Visit: Yes Status: Acute (7) COPD (chronic obstructive pulmonary disease) Current Visit: No Status: Chronic Management per ICU service Qualifiers: COPD type: emphysema Emphysema type: unspecified Qualified Code(s): J43.9 - Emphysema, unspecified Subjective Principal diagnosis: Acute on chronic hypercapnic and hypoxic respiratory failure Interval history: Afebrile. New onset Atrial fib/flutter, cardiology consulted. Patient remains sedated on mechanical ventilation. Patient continues on CVVHDF with improved MAP at 88 from yesterday. Objective - Vital Signs Vital signs: Vital Signs Temp Pulse Resp BP Pulse Ox 05/16/16 10:00 149 18 126/68 92 05/16/16 09:25 19 113/58 92 05/16/16 09:12 149 24 139/79 92 05/16/16 09:00 149 24 139/79 92 05/16/16 08:00 147 17 132/76 94 05/16/16 07:30 16 148/84 92 05/16/16 07:27 120 05/16/16 07:00 120 16 152/76 93 04/11/17 06:26 13 126/69 94 05/16/16 06:00 85 15 104/63 95 05/16/16 05:00 76 15 111/74 95 05/16/16 04:31 15 115/70 96 05/16/16 04:00 96.7 F L 76 14 128/66 97 05/16/16 03:49 90 05/16/16 03:00 88 13 109/77 95 05/16/16 02:29 13 107/83 95 05/16/16 02:00 80 18 99/67 95 05/16/16 01:00 96 15 128/63 94 05/16/16 00:13 16 139/68 93 05/16/16 00:00 96.7 F L 87 17 139/68 97 05/15/16 23:32 133 05/15/16 23:00 96 15 121/63 90 05/15/16 22:11 18 130/65 90 05/15/16 22:00 88 20 130/65 90 05/15/16 21:00 89 17 126/75 90 05/15/16 20:25 15 134/70 92 05/15/16 20:00 97.4 F L 78 15 109/78 94 05/15/16 19:46 75 05/15/16 19:00 129 12 101/62 92 05/15/16 18:00 90 15 96/71 90 05/15/16 17:00 140 15 102/68 92 05/15/16 16:00 97.4 F L 90 15 100/67 92 05/15/16 15:42 13 119/75 92 05/15/16 15:00 78 12 119/75 88 05/15/16 14:00 138 12 145/99 94 05/15/16 13:41 13 145/99 94 05/15/16 13:00 138 12 129/90 94 05/15/16 12:00 97.9 F 138 14 132/91 95 05/15/16 11:26 17 145/99 92 05/15/16 11:00 141 14 123/87 95 Intake and Output 05/15/16 05/16/16 05/16/16 23:59 07:59 15:59 Intake Total 1687 / 1687 1893 / 1893 270 / 270 Output Total 1258 / 1258 1556 / 1556 461 / 461 Balance 429 / 429 337 / 337 -191 / -191 Intake: IV Fluids 1500 / 1500 1645 / 1645 270 / 270 Calcium Chloride 4,000 MG 1000 / 1000 1040 / 1040 160 / 160 In 0.9 % Sodium Chloride 1,000 ML @ 40 mls/hr CRRT [facility] Rx#: [id number] PrismaSATE BGK 4/2.5 5, 0 / 0 0 / 0 0 / 0 000 ML @ 1250 mls/hr CRRT CONT [facility] Rx#:[id number] Amiodarone 360mg/200mL 200 / 200 200 / 200 33 / 33 Drip Premix 360 mg In 200 ml @ 0.5 MG/MIN 16.667 mls/hr IVC CONT [facility] Rx#: [id number] FentaNYL (PF) 1,000 MCG 55 / 55 7 / 7 In 0.9 % Sodium Chloride 80 ML @ 0.5 MCG/KG/HR 4. 35 mls/hr IVC [facility] Rx #:[id number] Levophed 4 MG In Dextrose 150 / 150 5% 250 ML @ 10 MCG/MIN 37.5 mls/hr IVC [facility] Rx#:[id number] Diprivan 1,000 mg In 100 200 / 200 100 / 100 22 / 22 ml @ 30 MCG/KG/MIN 15.66 mls/hr IVC .Q6H24M [facility] Rx #:[id number] Zosyn 3.375 GM In 100 / 100 100 / 100 48 / 48 Dextrose 5% (Minibag+) 100 ML 100 ML @ 25 mls/hr IVPB Q8H [facility] Rx#: [id number] Tube Feeding 187 / 187 248 / 248 0 / 0 Output: Barbi 1226 / 1226 1532 / 1532 441 / 441 Catheter 32 / 32 24 / 24 20 / 20 Other: Stool Size Small Stool Consistency soft Stool Color Brown Weight 90.2 kg Blood Glucose* 149 Patient Weight 05/16/16 23:59 Weight 90.2 kg - General Appearance General appearance: Present: well-developed, well-nourished, appears started age , sedated on ventilator (with stimulation on exam, patient seems to resist the vent more.), intubated EENT: Present: ATNC, mucous membranes moist Respiratory: Present: course breath sounds, rhonchi Cardiology: Present: no murmurs, edema (bilateral 2+ pitting pretibial edema), irregular rhythm Integumentary: Present: warm and dry. Absent: no rash Additional Comments: Unable to assess mentation while sedated and intubated. Musculoskeletal: Present: no deformities, no erythema, no cyanosis - Lab 05/16/16 07:35 05/16/16 04:10 Most recent lab results ABG pH 7.24 pH Units (7.32-7.45) L 05/15/16 05:35 ABG pCO2 60 mmHg (35-45) H 05/15/16 05:35 ABG pO2 66 mmHg (85-104) L 05/15/16 05:35 ABG HCO3 25.7 mEQ/L (21-27) 05/15/16 05:35 ABG O2 Saturation 89 % (95-98) L 05/15/16 05:35 Calcium 10.2 mg/dL (8.6-10.8) 05/16/16 04:10 Phosphorus 4.7 mg/dL (2.3-4.7) 05/16/16 04:10 Magnesium 2.0 mg/dL (1.6-2.6) 05/15/16 03:45 Urine Creatinine 126 mg/dL 05/13/16 09:12 Urine Sodium 29.0 mEq/L 05/13/16 09:12 Consult Discharge Plan - Plan Referrals: Peña Barber MD [Primary Care Provider] -
[2016-05-16] MEDS: Lacri-Lube 3.5 GM TUBE BOTH EYES SCH ×2 (12:07→21:29)
[2016-05-16] MEDS ORDERED: Acetaminophen 325 MG TABLET PO ONE (14:17)
--- NOTE | 2016-05-16 14:23 | Pulmonology Progress Note ---
Date of Encounter: 05/16/16 Time of Encounter: 14:18 Assessment and Plan (1) Acute on chronic respiratory failure with hypoxia and hypercapnia Current Visit: Yes Status: Acute Serologies for coronovirus 229E (+) Blood cultures (-) to date. Legionella Ag (-) Strep pneumo Ag (-) Sputum culture (-); however this was collected appx 10 hours after first IV abx dose. WBC peak at 21.3. Now 13.9. Afebrile. Patient has history of PE. Cannot CTA or V/Q scan secondary to JAIDEN. BL lower extremity venous doppler preliminarily negative for DVT. Continue Zosyn day 5. Levaquin discontinued after 2 days. Vancomycin discontinued after 1 day. Continue DuoNeb, symbicort, IV steroids 125mg Q8hr, and mechanical ventilation. Cardiology following. Their input is appreciated. 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 Patient received heparin on his last visit and on this visit. Platelets continue to decline from normal range at baseline. Possible source of thrombocytopenia is CVVH hemodialysis vs HIT vs other. 4T's score for HIT = 5; Intermediate probability. Will draw HIT assays. Discontinue heparin. Begin argatroban drip. Draw PT/INR and follow. (2) Acute exacerbation of chronic obstructive pulmonary disease Current Visit: Yes Status: Acute Likely secondary to hospital acquired bacterial pneumonia. Plan as above. (3) Severe sepsis Current Visit: Yes Status: Acute Severe sepsis with lactic acidosis, hypotension, acute kidney injury. Likely secondary to hospital acquired bacterial pneumonia. Lactic acidosis improving. BP remains stable. Plan as above. (4) Hospital-acquired pneumonia Current Visit: Yes Status: Acute Last discharged 05/03 from [facility]. Plan as above. (5) Lactic acidosis Current Visit: Yes Status: Acute Secondary to severe sepsis. Trending down. Continue empiric abc and IV fluids. (6) JAIDEN (acute kidney injury) Current Visit: Yes Status: Acute Management per neurology. (7) DVT prophylaxis Current Visit: Yes Status: Acute Heparin SQ TID. Subjective Principal diagnosis: Acute on chronic hypercapnic and hypoxic respiratory failure Objective PUL Vital signs: Last Vital Signs Temp 97.9 F 05/16/16 11:07 Pulse 154 05/16/16 13:23 Resp 14 05/16/16 13:23 BP 115/75 05/16/16 13:23 Pulse Ox 93 05/16/16 13:23 General appearance: no acute distress, other (sedated, ventilated) ENT: oropharynx moist Neck: supple Auscultation: bilateral: diminished breath sounds, other (intubated, ventilated) Cardiovascular: irregular rhythm, other (No murmor. Tachycardic in 150's.) Extremities: pink and warm, pulses normal, edema (1+ pitting edema bilaterally in upper and lower extremities.) Ventilator Settings Ventilator Settings: Ventilator Settings, Last 8 Hours Ventilator Mode A/C Ventilator Mode A/C Ventilator Mode A/C Ventilator Mode CPAP Ventilator Mode CPAP Ventilator Tidal Volume 600 Setting Ventilator Tidal Volume 600 Setting Ventilator Tidal Volume 600 Setting Ventilator Tidal Volume 600 Setting Ventilator Respiratory Rate 12 Setting Ventilator Respiratory Rate 12 Setting Ventilator Respiratory Rate 16 Setting Ventilator Respiratory Rate 12 Setting Actual Respiratory Rate 16 Actual Respiratory Rate 16 Actual Respiratory Rate 18 Actual Respiratory Rate 16 Actual Respiratory Rate 13 Positive End Expiratory 5 Pressure Positive End Expiratory 5 Pressure Positive End Expiratory 5 Pressure Positive End Expiratory 5 Pressure Positive End Expiratory 5 Pressure Peak Inspiratory Airway 19 Pressure Peak Inspiratory Airway 33 Pressure Peak Inspiratory Airway 24 Pressure Peak Inspiratory Airway 24 Pressure Peak Inspiratory Airway 25 Pressure Results - Laboratory Findings CBC and BMP: 05/16/16 07:35 05/16/16 04:10 ABG ABG pH 7.24 pH Units (7.32-7.45) L 05/15/16 05:35 ABG pCO2 60 mmHg (35-45) H 05/15/16 05:35 ABG pO2 66 mmHg (85-104) L 05/15/16 05:35 ABG O2 Saturation 89 % (95-98) L 05/15/16 05:35 PT/INR, D-dimer PT 10.2 Seconds (9.4-12.1) 05/12/16 07:05 Abnormal lab findings: Abnormal lab results WBC 13.9 K/mcL (4.3-11.1) H 05/16/16 07:35 Plt Count 69 K/mcL (140-400) L 05/16/16 07:35 Band Neutrophils % 40.0 % (0-4) H 05/15/16 03:45 Metamyelocytes % 2.0 % (0) H 05/15/16 03:45 Neutrophils # 13.3 K/mcL (1.6-8.9) H 05/16/16 07:35 Lymphocytes # 0.2 K/mcL (0.6-4.6) L 05/16/16 07:35 Nucleated RBCs/100 WBC 0.4 /100 WBC (0) H 05/16/16 07:35 Toxic Granulation Present (Not Present) A 05/15/16 03:45 Platelet Estimate Decreased (Normal) L 05/16/16 07:35 Immature Plt Fraction 9.8 % (1.1-6.1) H 05/15/16 03:45 APTT 20.6 Seconds (26.0-36.0) L 05/12/16 07:05 ABG pH 7.24 pH Units (7.32-7.45) L 05/15/16 05:35 ABG pCO2 60 mmHg (35-45) H 05/15/16 05:35 ABG pO2 66 mmHg (85-104) L 05/15/16 05:35 ABG Total CO2 27.5 mEq/L (20-26) H 05/15/16 05:35 ABG O2 Saturation 89 % (95-98) L 05/15/16 05:35 ABG Base Excess -2.7 mEq/L (-2.0 to 3.0) L 05/15/16 05:35 Potassium 4.8 mEq/L (3.5-4.5) H 05/16/16 04:10 BUN 40 mg/dL (8-26) H 05/16/16 04:10 Creatinine 2.45 mg/dL (0.72-1.25) H 05/16/16 04:10 Est GFR ( Amer) 32 (> 60) L 05/16/16 04:10 Est GFR (Non-Af Amer) 26 (> 60) L 05/16/16 04:10 Glucose 161 mg/dL (70-99) H 05/16/16 04:10 POC Glucose 149 (58-89) H 05/15/16 23:54 Lactic Acid 2.6 mmol/L (0.5-2.2) H 05/14/16 08:15 AST 170 Units/L (5-34) H 05/15/16 03:45 ALT 893 Units/L (0-55) H 05/15/16 03:45 B-Natriuretic Peptide 192 pg/mL (0-100) H 05/12/16 07:05 Albumin 1.8 g/dL (3.5-5.0) L 05/16/16 04:10 Urine Clarity Cloudy (Clear) A 05/13/16 09:50 Urine Protein 30 mg/dL (Neg-Trace) H 05/13/16 09:50 Urine Blood Large (Negative) H 05/13/16 09:50 Urine Microscopic RBC 3-5 per hpf (0-3) H 05/13/16 09:50 Urine Microscopic WBC 5-15 per hpf (0-3) H 05/13/16 09:50 Ur Squamous Epith Cells Many per lpf (None-Few) H 05/13/16 09:50 Coronavirus 229E (PCR) DETECTED (Not Detect) A 05/14/16 16:55 - Clinical Findings Intake & Output: Intake & Output 05/15/16 05/16/16 05/16/16 23:59 07:59 15:59 Intake Total 1687 / 1687 1893 / 1893 816 / 816 Output Total 1258 / 1258 1556 / 1556 981 / 981 Balance 429 / 429 337 / 337 -165 / -165 Weight 90.2 kg Consult Discharge Plan - Plan Referrals: Peña Barber MD [Primary Care Provider] -
[2016-05-16] MEDS: *HR* Metoprolol 5 MG/5 ML VIAL IVP SCH ×3 (14:43→20:35)
--- NOTE | 2016-05-16 14:46 | Event Note ---
Date of Encounter: 05/16/16 Time of Encounter: 13:30 - Cardiology Event Note Patient re-evalauted with Dr. Rosina Rosenberg, remains aflutter RVR 150's. SBP in 110 's. Will start IV Lopressor 2.5mg every 4 hrs as BP tolerates. Recommend eval for possible HIT. Family updated and all questions answered.
[2016-05-16] MEDS ORDERED: Argatroban 250 MG in D5% in Water 250 ML IVC SCH (16:00)
[2016-05-16 16:10] LABS: INR 1.1; Prothrombin Time 11.9 Seconds (9.4-12.1)
--- NOTE | 2016-05-16 17:48 | Venous Imaging Report ---
LE Venous Duplex Patient Name:Cam Rothman Order Number:[id number] Procedure Date:05/16/2016 Date:1945ge:71 yrs Gender:Male Location:[facility] Room #: IC11 Certified Welder:Nile Li CELY Referring MD:Luis Roa DO texturing machine fixer:Peña Barber MD Reading MD:Ashkan Banegas MD Primary Indications:PE Secondary Indications: Risk Factors Yes/No Unknown Impressions: Normal bilateral lower extremity deep and superficial venous exam. Findings Venous Duplex Results: Right: Venous imaging of the lower extremity reveals full patency and normal vessel compressibility of the right distal iliac, right common femoral, right superficial femoral, right popliteal, right posterior tibial, right peroneal, right great saphenous and right lesser saphenous. Doppler signals in the evaluated veins were normal. Left: Venous imaging of the lower extremity reveals full patency and normal vessel compressibility of the left distal iliac, left common femoral, left superficial femoral, left popliteal, left posterior tibial, left peroneal, left lesser saphenous and left great saphenous. Doppler signals in the evaluated veins were normal. Prior Study: No prior study available for comparison. Lower Extremity Venous Duplex Side Vein Compress Spontaneous Flow Augment Diameter (cm) Depth (cm) Right Distal Iliac Normal Yes Phasic Yes Right Common Femoral Normal Yes Phasic Yes Right Superficial Femoral Normal Yes Phasic Yes Right Popliteal Normal Yes Phasic Yes Right Posterior Tibial Normal Yes Phasic Yes Right Peroneal Normal Yes Phasic Yes Right Great Saphenous Normal Yes Phasic Yes Right Lesser Saphenous Normal Yes Phasic Yes Left Distal Iliac Normal Yes Phasic Yes Left Common Femoral Normal Yes Phasic Yes Left Superficial Femoral Normal Yes Phasic Yes Left Popliteal Normal Yes Phasic Yes Left Posterior Tibial Normal Yes Phasic Yes Left Peroneal Normal Yes Phasic Yes Left Lesser Saphenous Normal Yes Phasic Yes Left Great Saphenous Normal Yes Phasic Yes Updated by Ashkan Banegas MD on 05/16/2016 5:43:30 PM electronically signed on 05/16/2016 5:43:56 PM with status of Final
[2016-05-16] MEDS: Argatroban 250 MG in D5% in Water 250 ML IVC SCH (20:36)
[2016-05-16] MEDS ORDERED: *HR* Heparin 5,000 UNIT/ML VIAL ONE ×2 (21:27→22:10)
[2016-05-16] MEDS: *HR* Heparin 5,000 UNIT/ML VIAL IV PRN ×2 (22:54→22:56)
[2016-05-16] MEDS: 0.9 % Sodium Chloride 1,000 ML PRIME SCH (22:55)
[2016-05-17] MEDS: methylPREDNISolone 125 MG/2 ML VIAL IVP SCH ×4 (00:42→23:36)
[2016-05-17] MEDS: *HR* Metoprolol 5 MG/5 ML VIAL IVP SCH ×3 (00:42→10:02)
[2016-05-17] MEDS: PrismaSATE BGK 4/2.5 5,000 ML CRRT SCH ×12 (02:00→22:58)
[2016-05-17 02:27] LABS: Basophils % 0.1 %; Hemoglobin 13.1 g/dL (12.9-16.9); Immature Platelets 11.9 % (1.1-6.1); Lymphocytes # 0.3 K/mcL (0.6-4.6); Mean Corpuscular HGB Conc 33.6 g/dL (31.6-35.5); Mean Corpuscular Hemoglobin 30.8 pg (28.0-33.3); Mean Corpuscular Volume 91.5 fL (83.0-100.0); Mean Platelet Volume 11.7 fL (9.4-12.4); Monocytes # 0.6 K/mcL (0.0-1.3); Monocytes % 5.1 %; Neutrophils # 11.3 K/mcL (1.6-8.9); Nucleated Red Blood Cells 0.2 /100 WBC (0); Platelet Count 66 K/mcL (140-400); Red Blood Count 4.26 M/mcL (4.19-5.50); Red Cell Distribution Width 13.5 % (11.5-14.5); Segmented Neutrophils % 91.8 %
[2016-05-17 02:38] LABS: Calcium 9.3 mg/dL (8.6-10.8); Potassium 4.7 mEq/L (3.5-4.5)
[2016-05-17] MEDS: Ipratropium/Albuterol Neb 3 ML IH SCH ×5 (03:50→19:28)
[2016-05-17] MEDS: Piperacillin/Tazobactam 3.375 GM in D5% in Water (Mini-Bag+) 100 ML IVPB SCH ×3 (06:08→21:03)
[2016-05-17] MEDS: Budesonide/Formoterol 160/4.5 MDI IH SCH ×2 (07:30→19:29)
--- NOTE | 2016-05-17 09:46 | Pulmonology Progress Note ---
Date of Encounter: 05/17/16 Time of Encounter: 07:45 Assessment and Plan (1) Acute on chronic respiratory failure with hypoxia and hypercapnia Current Visit: Yes Status: Acute Serologies for coronovirus 229E (+) Blood cultures (-) to date. Legionella Ag (-) Strep pneumo Ag (-) Sputum culture (-); however this was collected appx 10 hours after first IV abx dose. WBC peak at 21.3. Now 13.1. Afebrile. HR previously A. Flutter with rate 150's, now sinus rhythm with rare PVCs. Continue amiodarone and lopressor per cardiology. Continue Zosyn day 6/. Levaquin discontinued after 2 days. Vancomycin discontinued after 1 day. Patient mechanically ventilated. Continue DuoNeb, symbicort, IV steroids 125mg Q8hr, and mechanical ventilation. Patient has history of PE. Cannot CTA or V/Q scan secondary to JAIDEN. BL lower extremity venous doppler confirmed negative for DVT. Cardiology following; their input is appreciated. (2) Acute exacerbation of chronic obstructive pulmonary disease Current Visit: Yes Status: Acute Likely secondary to hospital acquired bacterial pneumonia. Plan as above. (3) Severe sepsis Current Visit: Yes Status: Acute Severe sepsis with lactic acidosis, hypotension, acute kidney injury. Likely secondary to hospital acquired bacterial pneumonia. Lactic acidosis improving. BP is labile per BP trending. Will monitor as we diurese with CRRT. Plan as above. (4) Hospital-acquired pneumonia Current Visit: Yes Status: Acute Last discharged 05/03 from [facility]. Plan as above. (5) Thrombocytopenia Current Visit: Yes Status: Acute Thrombocytopenia. PLT 240 on intake. Yesterday 69. Today 66. Possible source of thrombocytopenia is CRRT hemodialysis vs antibiotics (zosyn, vanc) vs HIT vs other. 4T's score for HIT = 5; Intermediate probability. Patient received heparin on his last visit and on this visit. HIT labs pending. Heparin discontinued 05/16/16 Argatroban drip started 05/16/16. PTT 67.5 INR 1.1 today. Will continue to monitor. (6) Lactic acidosis Current Visit: Yes Status: Acute Secondary to severe sepsis. Clinically stable. Continue empiric abc and IV fluids. (7) JAIDEN (acute kidney injury) Current Visit: Yes Status: Acute Currently on CRRT diuresis at 100mL/hr. Nephrology has set max net negative CRRT diuresis of 200 on the condition of stable vitals. May increase net negative CRRT diuresis with close monitoring of vitals. Nephrology is following; their input is appreciated. (8) DVT prophylaxis Current Visit: Yes Status: Acute Argatroban drip as above. Subjective Principal diagnosis: Acute on chronic hypercapnic and hypoxic respiratory failure Interval history: Patient appears comfortable. No events overnight. No family at bedside. Objective PUL Vital signs: Last Vital Signs Temp 96.7 F L 05/17/16 09:00 Pulse 64 05/17/16 09:00 Resp 12 05/17/16 09:00 BP 117/62 05/17/16 09:00 Pulse Ox 94 05/17/16 09:00 General appearance: no acute distress, other (sedated, ventilated) Eyes: nonicteric ENT: oropharynx moist Neck: supple Auscultation: bilateral: diminished breath sounds (intubated, ventilated) Cardiovascular: regular rate and rhythm, PVC's noted Gastrointestinal: normoactive bowel sounds, soft, non-distended Integumentary: normal Extremities: no cyanosis, pink and warm, edema (1+ pitting edema bilaterally in upper and lower extremities) Musculoskeletal: no deformities other (sedated, intubated) Ventilator Settings Ventilator Settings: Ventilator Settings, Last 8 Hours Ventilator Mode VC+ Ventilator Mode VC+ Ventilator Mode VC+ Ventilator Mode VC+ Ventilator Mode VC+ Ventilator Mode VC+ Ventilator Mode VC+ Ventilator Mode VC+ Ventilator Mode VC+ Ventilator Mode VC+ Ventilator Mode VC+ Ventilator Tidal Volume 600 Setting Ventilator Tidal Volume 600 Setting Ventilator Tidal Volume 600 Setting Ventilator Tidal Volume 600 Setting Ventilator Tidal Volume 600 Setting Ventilator Tidal Volume 600 Setting Ventilator Tidal Volume 600 Setting Ventilator Tidal Volume 600 Setting Ventilator Tidal Volume 600 Setting Ventilator Tidal Volume 600 Setting Ventilator Tidal Volume 600 Setting Ventilator Respiratory Rate 12 Setting Ventilator Respiratory Rate 12 Setting Ventilator Respiratory Rate 12 Setting Ventilator Respiratory Rate 12 Setting Ventilator Respiratory Rate 12 Setting Ventilator Respiratory Rate 12 Setting Ventilator Respiratory Rate 12 Setting Ventilator Respiratory Rate 12 Setting Ventilator Respiratory Rate 12 Setting Ventilator Respiratory Rate 12 Setting Ventilator Respiratory Rate 12 Setting Actual Respiratory Rate 12 Actual Respiratory Rate 12 Actual Respiratory Rate 16 Actual Respiratory Rate 15 Actual Respiratory Rate 15 Actual Respiratory Rate 19 Actual Respiratory Rate 19 Actual Respiratory Rate 13 Actual Respiratory Rate 17 Actual Respiratory Rate 14 Actual Respiratory Rate 18 Positive End Expiratory 5 Pressure Positive End Expiratory 5 Pressure Positive End Expiratory 5 Pressure Positive End Expiratory 5 Pressure Positive End Expiratory 5 Pressure Positive End Expiratory 5 Pressure Positive End Expiratory 5 Pressure Positive End Expiratory 5 Pressure Positive End Expiratory 5 Pressure Positive End Expiratory 5 Pressure Positive End Expiratory 5 Pressure Peak Inspiratory Airway 35 Pressure Peak Inspiratory Airway 35 Pressure Peak Inspiratory Airway 23 Pressure Peak Inspiratory Airway 19 Pressure Peak Inspiratory Airway 20 Pressure Peak Inspiratory Airway 20 Pressure Peak Inspiratory Airway 38 Pressure Peak Inspiratory Airway 30 Pressure Peak Inspiratory Airway 34 Pressure Peak Inspiratory Airway 29 Pressure Peak Inspiratory Airway 25 Pressure Results - Laboratory Findings CBC and BMP: 05/17/16 02:20 05/17/16 02:20 ABG ABG pH 7.24 pH Units (7.32-7.45) L 05/15/16 05:35 ABG pCO2 60 mmHg (35-45) H 05/15/16 05:35 ABG pO2 66 mmHg (85-104) L 05/15/16 05:35 ABG O2 Saturation 89 % (95-98) L 05/15/16 05:35 PT/INR, D-dimer PT 11.9 Seconds (9.4-12.1) 05/16/16 15:55 Abnormal lab findings: Abnormal lab results WBC 12.3 K/mcL (4.3-11.1) H 05/17/16 02:20 Plt Count 66 K/mcL (140-400) L 05/17/16 02:20 Band Neutrophils % 40.0 % (0-4) H 05/15/16 03:45 Metamyelocytes % 2.0 % (0) H 05/15/16 03:45 Neutrophils # 11.3 K/mcL (1.6-8.9) H 05/17/16 02:20 Lymphocytes # 0.3 K/mcL (0.6-4.6) L 05/17/16 02:20 Nucleated RBCs/100 WBC 0.2 /100 WBC (0) H 05/17/16 02:20 Toxic Granulation Present (Not Present) A 05/15/16 03:45 Platelet Estimate Decreased (Normal) L 05/16/16 07:35 Immature Plt Fraction 11.9 % (1.1-6.1) H 05/17/16 02:20 APTT 67.5 Seconds (26.0-36.0) H D 05/17/16 02:20 ABG pH 7.24 pH Units (7.32-7.45) L 05/15/16 05:35 ABG pCO2 60 mmHg (35-45) H 05/15/16 05:35 ABG pO2 66 mmHg (85-104) L 05/15/16 05:35 ABG Total CO2 27.5 mEq/L (20-26) H 05/15/16 05:35 ABG O2 Saturation 89 % (95-98) L 05/15/16 05:35 ABG Base Excess -2.7 mEq/L (-2.0 to 3.0) L 05/15/16 05:35 Potassium 4.7 mEq/L (3.5-4.5) H 05/17/16 02:20 BUN 40 mg/dL (8-26) H 05/17/16 02:20 Creatinine 1.82 mg/dL (0.72-1.25) H 05/17/16 02:20 Est GFR ( Amer) 45 (> 60) L 05/17/16 02:20 Est GFR (Non-Af Amer) 37 (> 60) L 05/17/16 02:20 Glucose 152 mg/dL (70-99) H 05/17/16 02:20 POC Glucose 130 (58-89) H 05/16/16 23:35 Calculated Osmolality 301 (280-300) H 05/17/16 02:20 Lactic Acid 2.6 mmol/L (0.5-2.2) H 05/14/16 08:15 Ionized Calcium 1.14 mmol/L (1.15-1.35) L 05/17/16 00:48 AST 170 Units/L (5-34) H 05/15/16 03:45 ALT 893 Units/L (0-55) H 05/15/16 03:45 B-Natriuretic Peptide 192 pg/mL (0-100) H 05/12/16 07:05 Albumin 1.8 g/dL (3.5-5.0) L 05/16/16 04:10 Urine Clarity Cloudy (Clear) A 05/13/16 09:50 Urine Protein 30 mg/dL (Neg-Trace) H 05/13/16 09:50 Urine Blood Large (Negative) H 05/13/16 09:50 Urine Microscopic RBC 3-5 per hpf (0-3) H 05/13/16 09:50 Urine Microscopic WBC 5-15 per hpf (0-3) H 05/13/16 09:50 Ur Squamous Epith Cells Many per lpf (None-Few) H 05/13/16 09:50 Coronavirus 229E (PCR) DETECTED (Not Detect) A 05/14/16 16:55 - Diagnostic Findings U/S of Legs: report reviewed (negative for DVT bilaterally) - Clinical Findings Intake & Output: Intake & Output 05/16/16 05/17/16 05/17/16 23:59 07:59 15:59 Intake Total 1032 / 1032 975 / 975 137 / 137 Output Total 1025 / 1025 1741 / 1741 231 / 231 Balance -766 / -766 -94 / -94 Weight 91.2 kg Consult Discharge Plan - Plan Referrals: Peña Barber MD [Primary Care Provider] -
[2016-05-17] MEDS: FentaNYL (PF) 1,000 MCG in 0.9 % Sodium Chloride 80 ML IVC SCH ×2 (09:57→19:42)
[2016-05-17] MEDS: Calcium Chloride 4,000 MG in 0.9 % Sodium Chloride 1,000 ML CRRT SCH (10:00)
[2016-05-17] MEDS: Lacri-Lube 3.5 GM TUBE BOTH EYES SCH ×2 (10:03→19:54)
[2016-05-17] MEDS: Chlorhexidine Rinse 15 ML MOUTHWASH MM SCH ×2 (10:03→19:53)
[2016-05-17] MEDS: Pantoprazole 40 MG VIAL IVP SCH (10:03)
[2016-05-17] MEDS: Bisacodyl 10 MG RECTAL SUPPOSITORY RC SCH (10:03)
--- NOTE | 2016-05-17 10:09 | Cardiology Progress Note ---
Date of Encounter: 05/17/16 Time of Encounter: 08:30 Assessment and Plan (1) Acute on chronic respiratory failure with hypoxia and hypercapnia Current Visit: Yes Status: Acute Per cardiology: -Serologies for coronovirus 229E (+) -On antibiotics and nebulizers. -On Ventilator. Ventilator settings CMV, RR 12, TV 600, PEEP 5. -Management per primary and pulmonary services. (2) Sepsis Current Visit: Yes Status: Acute Per cardiology: -Serology positive for coronavirus 229. -On ATB. -Requiring mechanical ventilation and CRRT. -Previous on vasopressors, now off. -Management per primary and pulmonary services. Qualifiers: Sepsis type: sepsis due to unspecified organism Qualified Code(s): A41.9 - Sepsis, unspecified organism (3) JAIDEN (acute kidney injury) Current Visit: Yes Status: Acute Per cardiology: -AJIDEN noted in setting of respiratory failure and sepsis. -Currently on CRRT. -Creatinine improved today to 1.82. -Management per primary and nephrology services. (4) Atrial flutter with rapid ventricular response Current Visit: Yes Status: Acute Per Cardiology: -Previous records reviewed and no known afib/flutter hx appreciated. -Per HSE ADVISOR, patient did receive IV 6mg Adenosine on 05/15/16 and was amio loaded with Amio gtt now at 0.5mg/min. -Patient converted to sinus rhythm 05/17/16 around 0044. -Currently on amio gtt at 0.5mg/min, lopressor 2.5mg IV q4 hours scheduled. Some lopressor doses held due to hypotension. -Last echo 06/2015 with EF 60%, moderate diastolic dysfunction, mild-mod TR, mild CO, mild-mod PHTN with RVSP 49mm Hg. -Regarding long-term AC, [id number] = 5. Ideally, would recommend termination clerk anticoagulation, however PLT now down from 240 to 66. On Citrate for CRRT. -Platelets continue to decline. HIT panel ordered yesterday, will await results. Will not add asa at this time either with decreased PLT. -Currently on argatroban gtt.Will address termination clerk anticoagulation as patient' s condition improves. -Will discontinue amio drip and IV lopressor. Per discussion with Dr.Jennifer Rosenberg, will start lopressor 12.5mg po q6 hours and amiodarone 200mg po BID. -Recommend close observation of pateint's BP and HR. -Suspect atrial flutter with RVR due to respiratory failure, COPD, and sepsis. -Will continue to monitor. Discussion w patient/family: The assessment and plan as outlined above was discussed with the patient who expressed understanding and agreement. All questions were answered. Thank you for involving us in the care of your patient. Please call with any questions. Patient discussed and reviewed with Dr.Jennifer Rosenberg. Subjective Principal diagnosis: Acute on chronic hypercapnic and hypoxic respiratory failure Interval history: Mr. Rothman is a 71 year old male with a relevant past medical history of CAD, COPD, nicotine abuse, history of PE, hyperlipidemia, hypertension. Previous records reviewed the patient apparently recently discharged for acute COPD exacerbation and pneumonia. Appears to have been readmitted now intubated for worsening acute on chronic respiratory failure, pneumonia, and acute kidney injury on CRRT. Cardiology consult yesterday for a flutter with RVR. Patient remains intubated and sedated. Remains on CRRT. Patient converted to Sinus rhythm last night. Of note, no family at bedside at time of assessment. Will attempt to talk with family at a later time. Objective Vital Signs, Last 4 Hours Temp Pulse Resp BP Pulse Ox 05/17/16 09:59 13 93 05/17/16 09:00 96.7 F L 64 12 117/62 94 05/17/16 08:00 65 12 125/63 93 05/17/16 07:27 17 94 05/17/16 07:00 73 15 182/69 92 05/17/16 06:17 148/67 95 General: Other (Intubated and sedated. ) HEENT: Atraumatic, Normocephaly Neck: No JVD, Normal carotid pulses Cardiac: Reg Rate and Rhythm, Normal S1 and S2, No Murmur Lungs: Other (Lung sounds diminished throughout. ) Neuro: Other (Sedated) Abdomen: Soft Skin: No rashes noted on visualized skin Musculoskeletal: Other (No grimacing noted to palpation of chest) Extremities: No Clubbing, No Cyanosis, Other (1+ bilateral lower extremity pitting edema) Results 05/17/16 02:20 05/17/16 02:20 Lab Results Active Medications Albuterol/Ipratropium (Duoneb) 3 ml IH [id number] [facility] PRN Reason: Protocol Stop: 11/11/16 12:01 Last Admin: 05/17/16 07:30 Dose: 3 ml Amiodarone HCl (Cordarone) 200 mg PO BID [facility] Stop: 11/16/16 09:29 Artificial Tears (Lacri-Lube) 1 appl BOTH EYES BID [facility] PRN Reason: Protocol Stop: 11/13/16 15:20 Last Admin: 05/17/16 10:03 Dose: 1 appl Bisacodyl (Dulcolax) 10 mg RC DAILY [facility] Stop: 11/14/16 13:01 Last Admin: 05/17/16 10:03 Dose: 10 mg Budesonide/Formoterol Fumarate (Symbicort) 2 puff IH BIDR [facility] PRN Reason: Protocol Stop: 11/12/16 10:01 Last Admin: 05/17/16 07:30 Dose: 2 puff Chlorhexidine Gluconate (Chlorhexidine Rinse) 15 ml MM BID [facility] Stop: 11/13/16 15:20 Last Admin: 05/17/16 10:03 Dose: 15 ml Fentanyl Citrate 1,000 mcg/ (Sodium Chloride) 100 mls @ 4.35 mls/hr IVC CONT [facility]; 0.5 MCG/KG/HR PRN Reason: Protocol Stop: 11/11/16 11:01 Last Admin: 05/17/16 09:57 Dose: 1.43 mcg/kg/hr, 12.5 mls/hr Norepinephrine Bitartrate 4 mg (/ Dextrose) 250 mls @ 37.5 mls/hr IVC CONT [facility] ; 10 MCG/MIN PRN Reason: Protocol Stop: 11/11/16 16:01 Last Admin: 05/16/16 19:32 Dose: Not Given Propofol (Diprivan) 1,000 mg in 100 mls @ 15.66 mls/hr IVC .Q6H24M [facility]; 30 MCG/ KG/MIN PRN Reason: Protocol Stop: 11/11/16 16:31 Last Admin: 05/17/16 08:00 Dose: 50 mcg/kg/min, 26.1 mls/hr Sodium Chloride (0.9 % Sodium Chloride) 1,000 mls @ 0 mls/hr PRIME .Q0M [facility] PRN Reason: As Directed Stop: 11/13/16 09:02 Last Admin: 05/16/16 22:55 Dose: 1 mls/hr CRRT Dialysis Solution (Prismasate Bgk 4/2.5) 5,000 mls @ 1,250 mls/hr CRRT CONT [facility] Stop: 11/13/16 09:16 Last Admin: 05/17/16 06:01 Dose: 1,250 mls/hr CRRT Dialysis Solution (Prismasate Bgk 4/2.5) 5,000 mls @ 1,250 mls/hr CRRT CONT [facility] Stop: 11/13/16 09:16 Last Admin: 05/17/16 06:01 Dose: 1,250 mls/hr Sodium Chloride (0.9 % Sodium Chloride) 20 mls @ 0 mls/hr IV CONT [facility] PRN Reason: As Directed Stop: 11/13/16 09:16 Last Admin: 05/17/16 10:02 Dose: Not Given Calcium Chloride 4,000 mg/ (Sodium Chloride) 1,040 mls @ 40 mls/hr CRRT CONT [facility] PRN Reason: Protocol Stop: 11/13/16 09:16 Last Admin: 05/17/16 10:00 Dose: Not Given Citrate (Acd-A) 500 mls @ 40 mls/hr CRRT CONT [facility] PRN Reason: Protocol Stop: 11/13/16 09:16 Last Admin: 05/17/16 10:01 Dose: Not Given Calcium Gluconate 1,000 mg/ (Dextrose) 110 mls @ 220 mls/hr IVPB ONCE PRN PRN Reason: SEE COMMENTS Stop: 11/13/16 09:02 Last Infusion: 05/15/16 00:28 Dose: Infused Calcium Gluconate 2,000 mg/ (Dextrose) 120 mls @ 220 mls/hr IVPB ONCE PRN PRN Reason: SEE COMMENTS Stop: 11/13/16 09:02 Piperacillin Sod/Tazobactam (Sod 3.375 gm/ Dextrose) 100 mls @ 25 mls/hr IVPB Q8H [facility] PRN Reason: Protocol Stop: 11/13/16 18:01 Last Admin: 05/17/16 06:08 Dose: 25 mls/hr Argatroban 250 mg/ Dextrose 252.5 mls @ 10.93 mls/hr IVC CONT [facility]; 2 MCG/KG/MIN PRN Reason: Protocol Stop: 11/15/16 18:01 Last Admin: 05/16/16 20:36 Dose: 2 mcg/kg/min, 10.93 mls/hr Methylprednisolone (Solu-Medrol) 125 mg IVP Q8HR [facility] Stop: 11/14/16 16:01 Last Admin: 05/17/16 10:03 Dose: 125 mg Metoprolol Tartrate (Lopressor) 12.5 mg PO Q6HR [facility] Stop: 11/16/16 09:28 Naloxone HCl (Narcan) 0.4 mg IVP Q2MIN PRN PRN Reason: Opioid Reversal Stop: 11/11/16 09:26 Ondansetron HCl (Zofran) 4 mg IVP Q8HR PRN PRN Reason: Nausea And Vomiting Stop: 11/11/16 09:26 Pantoprazole Sodium (Protonix) 40 mg IVP DAILY [facility] Stop: 11/11/16 09:31 Last Admin: 05/17/16 10:03 Dose: 40 mg Laboratory Tests 05/12/16 05/13/16 05/14/16 07:05 03:10 03:37 WBC 21.3 H Hgb Plt Count 240 113 L Potassium Creatinine Magnesium AST ALT Coronavirus 229E (PCR) 05/14/16 05/14/16 05/15/16 03:37 16:55 03:45 WBC Hgb Plt Count Potassium Creatinine 4.64 H D Magnesium 2.0 AST 170 H ALT 893 H Coronavirus 229E (PCR) DETECTED A 05/15/16 05/16/16 05/17/16 03:45 07:35 02:20 WBC 12.3 H Hgb 13.1 Plt Count 86 L 69 L 66 L Potassium Creatinine Magnesium AST ALT Coronavirus 229E (PCR) 05/17/16 02:20 WBC Hgb Plt Count Potassium 4.7 H Creatinine 1.82 H Magnesium AST ALT Coronavirus 229E (PCR) - Imaging and Cardiology Chest Xray: report reviewed - EKG Interpretation EKG results cardiology: other (Telemetry reviewed with average HR previous 12 hours noted to be 84, PVCs and couplet PVCs noted. Patient was in atrial flutter , however converted to sinus rhythm around 0044.) Consult Discharge Plan - Plan Referrals: Peña Barber MD [Primary Care Provider] -
--- NOTE | 2016-05-17 10:18 | Nephrology Progress Note ---
Date of Encounter: 05/17/16 Time of Encounter: 09:15 - Assessment and Plan (1) JAIDEN (acute kidney injury) Current Visit: Yes Status: Acute Consulted for oligoanuria with worsening renal function plus acute hyperphosphatemia, hyperkalemia, AGMA (with lactic acidosis). On CVVHDF with net goal of 25-50ml/hr, increased to net negative of 200ml/hr as tolerated by patient. Dialysate 1250 with Replacement fluid 1250ml/hr for a goal Effluent Dose (ED) of at least 25. Will follow the [place] protocol for titration and potential variables for comparison. Citrate discontinued. Dose Rx by a presumed GFR near 20-30 while on Barbi Monitor the Phos, Mag, Calcium, K+ and SCr while on CVVHDF. Calcium 9.2>10.2>9.3 , K+ 4.8>4.7 and SCr 3.63>2.45>1.82 (2) Oligouria Current Visit: Yes Status: Acute (3) Hyperkalemia Current Visit: Yes Status: Acute (4) Hyperphosphatemia Current Visit: Yes Status: Acute (5) Lactic acidosis Current Visit: Yes Status: Acute (6) Septic shock Current Visit: Yes Status: Acute (7) COPD (chronic obstructive pulmonary disease) Current Visit: No Status: Chronic Management per ICU service Qualifiers: COPD type: emphysema Emphysema type: unspecified Qualified Code(s): J43.9 - Emphysema, unspecified (8) Atrial flutter Current Visit: Yes Status: Acute Cardiology following. Patient started on lopressor. Cardio concerned for HIT; DVT prophylaxis switched to argatroban. Qualifiers: Atrial flutter type: unspecified Qualified Code(s): I48.92 - Unspecified atrial flutter Subjective Principal diagnosis: Acute on chronic hypercapnic and hypoxic respiratory failure Interval history: Afebrile. Patient continues on CVVHDF. Nurse reports issues with dialysis and prismaflex reporting negative pressure. New onset Atrial flutter since yesterday , rate improved at 66bpm. Patient remains sedated on mechanical ventilation. Objective - Vital Signs Vital signs: Vital Signs Temp Pulse Resp BP Pulse Ox 05/17/16 09:59 13 93 05/17/16 09:00 96.7 F L 64 12 117/62 94 05/17/16 08:00 65 12 125/63 93 05/17/16 07:27 17 94 05/17/16 07:00 73 15 182/69 92 05/17/16 06:17 148/67 95 05/17/16 06:00 64 15 148/67 96 05/17/16 05:37 17 123/60 96 05/17/16 05:00 63 19 119/63 96 05/17/16 04:00 97.4 F L 64 13 129/61 96 05/17/16 03:50 15 93 05/17/16 03:00 62 14 123/53 96 05/17/16 02:00 64 18 130/64 97 05/17/16 01:08 17 117/66 98 05/17/16 01:00 62 17 117/66 97 05/17/16 00:00 97.9 F 114 18 99/66 96 05/16/16 23:23 12 94/63 96 05/16/16 23:00 131 19 94/63 93 05/16/16 22:00 146 15 103/79 94 05/16/16 21:38 18 96/56 95 05/16/16 21:00 122 18 91/58 96 05/16/16 20:00 98.1 F 144 16 127/64 91 05/16/16 19:57 127/64 93 05/16/16 19:00 142 19 143/79 92 05/16/16 18:00 156 17 142/74 92 05/16/16 17:20 17 130/69 92 05/16/16 17:05 146 17 135/73 94 05/16/16 17:00 156 16 130/69 94 05/16/16 16:00 146 17 135/73 94 05/16/16 15:24 16 113/75 93 05/16/16 15:10 154 15 121/74 92 05/16/16 15:00 98.0 F 154 14 115/70 93 05/16/16 14:00 154 15 121/74 92 05/16/16 13:23 154 14 115/75 93 05/16/16 13:00 154 14 115/75 93 05/16/16 12:00 152 17 126/77 94 05/16/16 11:24 17 173/104 94 05/16/16 11:07 97.9 F 151 15 129/76 93 05/16/16 11:00 97.9 F 151 15 129/76 93 Intake and Output 05/16/16 05/17/16 05/17/16 23:59 07:59 15:59 Intake Total 1032 / 1032 975 / 975 337 / 337 Output Total 1025 / 1025 1741 / 1741 231 / 231 Balance 7 / 7 -766 / -766 106 / 106 Intake: IV Fluids 856 / 856 600 / 600 200 / 200 Calcium Chloride 4,000 MG 444 / 444 400 / 400 In 0.9 % Sodium Chloride 1,000 ML @ 40 mls/hr CRRT CONT [facility] Rx#: [id number] PrismaSATE BGK 4/2.5 5, 0 / 0 0 / 0 000 ML @ 1250 mls/hr CRRT CONT [facility] Rx#:[id number] Amiodarone 360mg/200mL 115 / 115 Drip Premix 360 mg In 200 ml @ 0.5 MG/MIN 16.667 mls/hr IVC CONT [facility] Rx#: [id number] FentaNYL (PF) 1,000 MCG 76 / 76 100 / 100 In 0.9 % Sodium Chloride 80 ML @ 0.5 MCG/KG/HR 4. 35 mls/hr IVC CONT [facility] Rx #:[id number] Diprivan 1,000 mg In 100 121 / 121 100 / 100 100 / 100 ml @ 30 MCG/KG/MIN 15.66 mls/hr IVC .Q6H24M [facility] Rx #:[id number] Zosyn 3.375 GM In 100 / 100 100 / 100 Dextrose 5% (Minibag+) 100 ML 100 ML @ 25 mls/hr IVPB Q8H [facility] Rx#: [id number] Tube Feeding 176 / 176 375 / 375 137 / 137 Output: Barbi 976 / 976 1734 / 1734 231 / 231 Catheter 49 / 49 7 / 7 0 / 0 Other: Weight 91.2 kg Blood Glucose* 130 Patient Weight 05/17/16 23:59 Weight 91.2 kg - General Appearance General appearance: Present: well-developed, well-nourished, appears started age , sedated on ventilator, intubated EENT: Present: ATNC, mucous membranes dry Respiratory: Present: clear Cardiology: Present: edema (bilateral 2+ pitting pretibial edema), irregular rhythm Dialysis Vascular Access: Venous Catheter (in RIJ) Gastrointestinal: Present: no tenderness, no guarding Integumentary: Present: no rash, warm and dry Additional Comments: Unable to asses patient's mentation as he remains sedated on mechanical ventilation. Musculoskeletal: Present: no deformities, no erythema, no cyanosis - Lab 05/17/16 02:20 05/17/16 02:20 Most recent lab results ABG pH 7.24 pH Units (7.32-7.45) L 05/15/16 05:35 ABG pCO2 60 mmHg (35-45) H 05/15/16 05:35 ABG pO2 66 mmHg (85-104) L 05/15/16 05:35 ABG HCO3 25.7 mEQ/L (21-27) 05/15/16 05:35 ABG O2 Saturation 89 % (95-98) L 05/15/16 05:35 Calcium 9.3 mg/dL (8.6-10.8) 05/17/16 02:20 Phosphorus 4.7 mg/dL (2.3-4.7) 05/16/16 04:10 Magnesium 2.0 mg/dL (1.6-2.6) 05/15/16 03:45 Urine Creatinine 126 mg/dL 05/13/16 09:12 Urine Sodium 29.0 mEq/L 05/13/16 09:12 Consult Discharge Plan - Plan Referrals: Peña Barber MD [Primary Care Provider] -
[2016-05-17] MEDS: *HR* Amiodarone 200 MG TABLET PO SCH ×2 (10:49→19:53)
--- NOTE | 2016-05-17 13:14 | Event Note ---
Date of Encounter: 05/17/16 Time of Encounter: 12:30 - Cardiology Event Note Family was seen. Updates given regarding cardiac standpoint and medication changes. All questions answered. Family state understanding and agree with plan from cardiac standpoint.
[2016-05-17] MEDS: Norepinephrine 4 MG in D5% in Water 250 ML IVC SCH (15:23)
[2016-05-17] MEDS: Argatroban 250 MG in D5% in Water 250 ML IVC SCH (16:27)
--- NOTE | 2016-05-17 17:23 | Electrocardiograph Report ---
[place] [address] Test Date: 2016-05-16 Pat Name: Cam Rothman Department: 109 Room: 11 Gender: M [employer]: : 1945 Requested By: Erik Medina Order Number: [id number] Reading MD: Sandrita Tidwell Measurements Intervals [place] Rate: 145 P: [place]: 0 QRS: 2 QRSD: 129 T: 269 QT: 326 QTc: 410 Interpretive Statements ATRIAL FLUTTER/TACHYCARDIA WITH RAPID VENTRICULAR RESPONSE WITH ABERRANT CONDUCTION OR VENTRICULAR PREMATURE COMPLEXES Electronically Signed On 05-17-2016 17:21:33 EDT by Sandrita Tidwell
[2016-05-17 17:53] LABS: CK-BB (CK isoenzymes) 1 % (0-0); CK-MB (CK isoenzymes) 0 % (0-4); CK-MM (CK-isoenzymes) 99 % (96-100)
[2016-05-18] MEDS: Ipratropium/Albuterol Neb 3 ML IH SCH ×6 (00:05→19:56)
[2016-05-18 03:57] LABS: Basophils % 0.2 %; Hemoglobin 13.9 g/dL (12.9-16.9); Immature Granulocytes % 0.9 % (0-4); Immature Platelets 15.1 % (1.1-6.1); Lymphocytes # 0.2 K/mcL (0.6-4.6); Mean Corpuscular HGB Conc 33.1 g/dL (31.6-35.5); Mean Corpuscular Volume 93.8 fL (83.0-100.0); Mean Platelet Volume 12.2 fL (9.4-12.4); Monocytes # 0.5 K/mcL (0.0-1.3); Monocytes % 4.7 %; Red Blood Count 4.48 M/mcL (4.19-5.50); Segmented Neutrophils % 92.2 %
[2016-05-18 03:58] LABS: Neutrophils # 9.8 K/mcL (1.6-8.9); Platelet Count 74 K/mcL (140-400)
[2016-05-18] MEDS: PrismaSATE BGK 4/2.5 5,000 ML CRRT SCH ×10 (04:00→21:18)
[2016-05-18 04:03] LABS: ABG Base Excess 0.4 mEq/L (-2.0 to 3.0); ABG HCO3 29.6 mEQ/L (21-27); ABG Oxygen Saturation 89 % (95-98); ABG PCO2 69 mmHg (35-45); ABG PH 7.24 pH Units (7.32-7.45); ABG PO2 67 mmHg (85-104); ABG TCO2 31.7 mEq/L (20-26)
[2016-05-18 04:05] LABS: Blood Gas FiO2 50 %
[2016-05-18 04:08] LABS: Calcium 8.2 mg/dL (8.6-10.8)
[2016-05-18 04:10] LABS: INR 1.9; Prothrombin Time 20.9 Seconds (9.4-12.1)
[2016-05-18 04:16] LABS: Potassium 5.5 mEq/L (3.5-4.5)
[2016-05-18] MEDS: Piperacillin/Tazobactam 3.375 GM in D5% in Water (Mini-Bag+) 100 ML IVPB SCH ×3 (05:04→21:18)
[2016-05-18] MEDS: FentaNYL (PF) 1,000 MCG in 0.9 % Sodium Chloride 80 ML IVC SCH ×2 (05:57→20:03)
--- NOTE | 2016-05-18 08:20 | Cardiology Progress Note ---
Date of Encounter: 05/18/16 Time of Encounter: 08:20 Assessment and Plan (1) Acute on chronic respiratory failure with hypoxia and hypercapnia Current Visit: Yes Status: Acute Serologies for coronovirus 229E (+) Blood cultures (-) to date. Legionella Ag (-) Strep pneumo Ag (-) Sputum culture (-); however this was collected appx 10 hours after first IV abx dose. WBC peak at 21.3. Now 13.1. Afebrile. HR previously A. Flutter with rate 150's, now sinus rhythm with rare PVCs. Continue amiodarone and lopressor per cardiology. Continue Zosyn day 6/7. Levaquin discontinued after 2 days. Vancomycin discontinued after 1 day. Patient mechanically ventilated. Continue DuoNeb, symbicort, IV steroids 125mg Q8hr, and mechanical ventilation. Patient has history of PE. Cannot CTA or V/Q scan secondary to JAIDEN. BL lower extremity venous doppler confirmed negative for DVT. Cardiology following; their input is appreciated. (2) Acute exacerbation of chronic obstructive airways disease Current Visit: No Status: Acute Per Cardiology: Known Hx of COPD and nicotine abuse. CXR showed severe bullous emphysema. Management per primary service. (3) Right lower lobe pneumonia Current Visit: Yes Status: Acute Per Cardiology: Management per primary service. WBC peak at 21.3, now 13.9. Afebrile, on warming blanket. Qualifiers: Pneumonia type: due to unspecified organism Qualified Code(s): J18.1 - Lobar pneumonia, unspecified organism (4) Severe sepsis Current Visit: Yes Status: Acute Severe sepsis with lactic acidosis, hypotension, acute kidney injury. Likely secondary to hospital acquired bacterial pneumonia. Lactic acidosis improving. BP is labile per BP trending. Will monitor as we diurese with CRRT. Plan as above. (5) Lactic acid acidosis Current Visit: Yes Status: Acute Per Cardiology: Peak 6.4, now 2.6. Management per primary service. (6) JAIDEN (acute kidney injury) Current Visit: Yes Status: Acute Consulted for oligoanuria with worsening renal function plus acute hyperphosphatemia, hyperkalemia, AGMA (with lactic acidosis). On CVVHDF with net goal of 25-50ml/hr, increased to net negative of 200ml/hr as tolerated by patient. Dialysate 1250 with Replacement fluid 1250ml/hr for a goal Effluent Dose (ED) of at least 25. Will follow the [place] protocol for titration and potential variables for comparison. Citrate discontinued. Dose Rx by a presumed GFR near 20-30 while on Barbi Monitor the Phos, Mag, Calcium, K+ and SCr while on CVVHDF. Calcium 9.2>10.2>9.3 , K+ 4.8>4.7 and SCr 3.63>2.45>1.82 (7) Sepsis Current Visit: Yes Status: Acute Per cardiology: -Serology positive for coronavirus 229. -On ATB. -Requiring mechanical ventilation and CRRT. -Previous on vasopressors, now off. -Management per primary and pulmonary services. Qualifiers: Sepsis type: sepsis due to unspecified organism Qualified Code(s): A41.9 - Sepsis, unspecified organism (8) Atrial flutter with rapid ventricular response Current Visit: Yes Status: Acute Per Cardiology: -Previous records reviewed and no known afib/flutter hx appreciated. -Per [employer], patient did receive IV 6mg Adenosine on 05/15/16 and was amio loaded with Amio gtt now at 0.5mg/min. -Patient converted to sinus rhythm 05/17/16 around 0044. -Currently on amio gtt at 0.5mg/min, lopressor 2.5mg IV q4 hours scheduled. Some lopressor doses held due to hypotension. -Last echo 06/2015 with EF 60%, moderate diastolic dysfunction, mild-mod TR, mild PA, mild-mod PHTN with RVSP 49mm Hg. -Regarding long-term AC, [id number] = 5. Ideally, would recommend bed bug exterminator anticoagulation, however PLT now down from 240 to 66. On Citrate for CRRT. -Platelets continue to decline. HIT panel ordered yesterday, will await results. Will not add asa at this time either with decreased PLT. -Currently on argatroban gtt.Will address bed bug exterminator anticoagulation as patient' s condition improves. -Will discontinue amio drip and IV lopressor. Per discussion with Dr.Jennifer Rosenberg, will start lopressor 12.5mg po q6 hours and amiodarone 200mg po BID. -Recommend close observation of pateint's BP and HR. -Suspect atrial flutter with RVR due to respiratory failure, COPD, and sepsis. -Will continue to monitor. (9) CAD (coronary artery disease) Current Visit: No Status: Chronic Per Cardiology: Known hx CAD. Last heart catheterization September 2014: left main 20%, proximal LAD patent stent with 20% stenosis, mid circumflex 20% stenosis, OM1 20% stenosis, and mid RCA 50% stenosis. On asa, plavix, BB, Imdur, ARB, statin at home-- all on hold currently d/t decreased PLT, hypotension, and elevated LFTs ( AST = 170, ALT = 893). Consider echo, however once HR controlled. Qualifiers: Coronary Disease-Associated Artery/Lesion type: [place] artery [place] vs. transplanted heart: [place] heart Associated angina: with stable angina Qualified Code(s): I25.118 - Atherosclerotic heart disease of [place] coronary artery with other forms of angina pectoris Discussion w patient/family: Thank you for involving us in the care of your patient. Please call with any questions. Will monitor for family. Consider palliative consult to address code status. Subjective Principal diagnosis: Acute on chronic hypercapnic and hypoxic respiratory failure, Aflutter RVR Objective Vital Signs, Last 4 Hours Temp Pulse Resp BP Pulse Ox 05/18/16 07:52 67 05/18/16 07:24 97.6 F 05/18/16 07:18 15 120/55 95 05/18/16 07:00 67 14 120/55 95 05/18/16 06:09 17 107/54 94 05/18/16 06:00 69 20 107/54 93 05/18/16 05:00 71 14 114/43 92 Results 05/18/16 03:41 05/18/16 03:41 Lab Results Laboratory Tests 05/18/16 05/18/16 05/18/16 03:41 03:41 03:41 WBC 10.6 Hgb 13.9 Hct 42.0 Plt Count 74 L INR 1.9 D Potassium 5.5 H Creatinine 2.02 H Est GFR (Non-Af Amer) 33 L Lactic Acid 05/18/16 03:41 WBC Hgb Hct Plt Count INR Potassium Creatinine Est GFR (Non-Af Amer) Lactic Acid 1.1 Intake & Output 05/15/16 05/16/16 05/17/16 05/18/16 23:59 23:59 23:59 23:59 Intake Total 09164 / 43773 3957 / 3957 3242.5 / 3242.5 1357 / 1357 Output Total 3848 / 3848 3841 / 3841 5788 / 5788 2364 / 2364 Balance 66112 / 02160 116 / 116 -2545.5 / -2545.5 -1007 / -1007 Weight 90.2 kg 91.2 kg 95 kg Active Medications Albuterol/Ipratropium (Duoneb) 3 ml IH [id number] STALIN PRN Reason: Protocol Stop: 11/11/16 12:01 Last Admin: 05/18/16 07:17 Dose: 3 ml Amiodarone HCl (Cordarone) 200 mg PO BID STALIN Stop: 11/16/16 09:29 Last Admin: 05/17/16 19:53 Dose: 200 mg Artificial Tears (Lacri-Lube) 1 appl BOTH EYES BID STALIN PRN Reason: Protocol Stop: 11/13/16 15:20 Last Admin: 05/17/16 19:54 Dose: 1 appl Bisacodyl (Dulcolax) 10 mg RC DAILY STALIN Stop: 11/14/16 13:01 Last Admin: 05/17/16 10:03 Dose: 10 mg Budesonide/Formoterol Fumarate (Symbicort) 2 puff IH BIDR STALIN PRN Reason: Protocol Stop: 11/12/16 10:01 Last Admin: 05/17/16 19:29 Dose: 2 puff Chlorhexidine Gluconate (Chlorhexidine Rinse) 15 ml MM BID STALIN Stop: 11/13/16 15:20 Last Admin: 05/17/16 19:53 Dose: 15 ml Fentanyl Citrate 1,000 mcg/ (Sodium Chloride) 100 mls @ 4.35 mls/hr IVC CONT STALIN; 0.5 MCG/KG/HR PRN Reason: Protocol Stop: 11/11/16 11:01 Last Admin: 05/18/16 05:57 Dose: 1.14 mcg/kg/hr, 10 mls/hr Norepinephrine Bitartrate 4 mg (/ Dextrose) 250 mls @ 37.5 mls/hr IVC CONT STALIN ; 10 MCG/MIN PRN Reason: Protocol Stop: 11/11/16 16:01 Last Admin: 05/17/16 15:23 Dose: Not Given Propofol (Diprivan) 1,000 mg in 100 mls @ 15.66 mls/hr IVC .Q6H24M STALIN; 30 MCG/ KG/MIN PRN Reason: Protocol Stop: 11/11/16 16:31 Last Admin: 05/18/16 04:01 Dose: 30 mcg/kg/min, 15.66 mls/hr Sodium Chloride (0.9 % Sodium Chloride) 1,000 mls @ 0 mls/hr PRIME .Q0M STALIN PRN Reason: As Directed Stop: 11/13/16 09:02 Last Admin: 05/16/16 22:55 Dose: 1 mls/hr CRRT Dialysis Solution (Prismasate Bgk 4/2.5) 5,000 mls @ 1,250 mls/hr CRRT CONT STALIN Stop: 11/13/16 09:16 Last Admin: 05/18/16 04:00 Dose: 1 mls/hr CRRT Dialysis Solution (Prismasate Bgk 4/2.5) 5,000 mls @ 1,250 mls/hr CRRT CONT STALIN Stop: 11/13/16 09:16 Last Admin: 05/18/16 04:00 Dose: 1 mls/hr Sodium Chloride (0.9 % Sodium Chloride) 20 mls @ 0 mls/hr IV CONT STALIN PRN Reason: As Directed Stop: 11/13/16 09:16 Last Admin: 05/17/16 10:02 Dose: Not Given Calcium Chloride 4,000 mg/ (Sodium Chloride) 1,040 mls @ 40 mls/hr CRRT CONT STALIN PRN Reason: Protocol Stop: 11/13/16 09:16 Last Admin: 05/17/16 10:00 Dose: Not Given Citrate (Acd-A) 500 mls @ 40 mls/hr CRRT CONT STALIN PRN Reason: Protocol Stop: 11/13/16 09:16 Last Admin: 05/17/16 10:01 Dose: Not Given Calcium Gluconate 1,000 mg/ (Dextrose) 110 mls @ 220 mls/hr IVPB ONCE PRN PRN Reason: SEE COMMENTS Stop: 11/13/16 09:02 Last Infusion: 05/15/16 00:28 Dose: Infused Calcium Gluconate 2,000 mg/ (Dextrose) 120 mls @ 220 mls/hr IVPB ONCE PRN PRN Reason: SEE COMMENTS Stop: 11/13/16 09:02 Piperacillin Sod/Tazobactam (Sod 3.375 gm/ Dextrose) 100 mls @ 25 mls/hr IVPB Q8H STALIN PRN Reason: Protocol Stop: 11/13/16 18:01 Last Admin: 05/18/16 05:04 Dose: 25 mls/hr Argatroban 250 mg/ Dextrose 252.5 mls @ 10.93 mls/hr IVC CONT STALIN; 2 MCG/KG/MIN PRN Reason: Protocol Stop: 11/15/16 18:01 Last Titration: 05/18/16 06:57 Dose: 2 mcg/kg/min, 10.93 mls/hr Methylprednisolone (Solu-Medrol) 125 mg IVP Q8HR STALIN Stop: 11/14/16 16:01 Last Admin: 05/17/16 23:36 Dose: 125 mg Metoprolol Tartrate (Lopressor) 12.5 mg PO Q6HR STALIN Stop: 11/16/16 09:28 Last Admin: 05/18/16 05:03 Dose: 12.5 mg Naloxone HCl (Narcan) 0.4 mg IVP Q2MIN PRN PRN Reason: Opioid Reversal Stop: 11/11/16 09:26 Ondansetron HCl (Zofran) 4 mg IVP Q8HR PRN PRN Reason: Nausea And Vomiting Stop: 11/11/16 09:26 Pantoprazole Sodium (Protonix) 40 mg IVP DAILY [facility] Stop: 11/11/16 09:31 Last Admin: 05/17/16 10:03 Dose: 40 mg - EKG Interpretation EKG results cardiology: other Consult Discharge Plan - Plan Referrals: Peña Barber MD [Primary Care Provider] -
[2016-05-18] MEDS: Pantoprazole 40 MG VIAL IVP SCH (08:24)
[2016-05-18] MEDS: Chlorhexidine Rinse 15 ML MOUTHWASH MM SCH ×2 (08:24→20:12)
[2016-05-18] MEDS: methylPREDNISolone 125 MG/2 ML VIAL IVP SCH (08:24)
[2016-05-18] MEDS: Lacri-Lube 3.5 GM TUBE BOTH EYES SCH ×2 (08:25→20:12)
[2016-05-18] MEDS: *HR* Amiodarone 200 MG TABLET PO SCH ×2 (08:50→20:12)
--- NOTE | 2016-05-18 09:20 | Pulmonology Progress Note ---
Date of Encounter: 05/18/16 Time of Encounter: 09:18 Assessment and Plan (1) Acute on chronic respiratory failure with hypoxia and hypercapnia Current Visit: Yes Status: Acute Serologies for coronovirus 229E (+) Blood cultures (-) to date. Legionella Ag (-) Strep pneumo Ag (-) Sputum culture (-); however this was collected appx 10 hours after first IV abx dose. WBC peak at 21.3. Now 10.6. Afebrile. -Continue Zosyn day 08/11. Will discontinue after today. Levaquin discontinued after 2 days. Vancomycin discontinued after 1 day. Patient mechanically ventilated. - Continue DuoNeb, symbicort, IV steroids 125mg Q8hr. - Breathing trial today. - Sedation holiday. A. Flutter resolved. HR sinus rhythm in the 60's with rare PVC's. Cardiology following; their input is appreciated. -Cardiac echo today. (2) Acute exacerbation of chronic obstructive pulmonary disease Current Visit: Yes Status: Acute Likely secondary to hospital acquired bacterial pneumonia. Plan as above. (3) Severe sepsis Current Visit: Yes Status: Acute Severe sepsis with lactic acidosis, hypotension, acute kidney injury. Likely secondary to hospital acquired bacterial pneumonia. Lactic acidosis resolved. Plan as above. (4) Hospital-acquired pneumonia Current Visit: Yes Status: Acute Last discharged 05/03 from [facility]. Plan as above. (5) Thrombocytopenia Current Visit: Yes Status: Acute Thrombocytopenia. PLT 240 on intake. Yesterday 69. Today 66. Possible source of thrombocytopenia is CRRT hemodialysis vs antibiotics (zosyn, vanc) vs HIT vs other. 4T's score for HIT = 5; Intermediate probability. Patient received heparin on his last visit and on this visit. HIT labs pending. Heparin discontinued 05/16/16 Argatroban drip started 05/16/16. PTT 67.5 INR 1.1 today. Will continue to monitor. (6) Lactic acidosis Current Visit: Yes Status: Acute Secondary to severe sepsis. Resolved. Continue empiric abc and IV fluids as above. (7) JAIDEN (acute kidney injury) Current Visit: Yes Status: Acute Currently on CRRT diuresis at 100mL/hr. Nephrology has set max net negative CRRT diuresis of 200 on the condition of stable vitals. BP and HR currently tolerating CVVHDF of net negative UF of 170cc/hr. Peripheral edema stable vs yesterday. Nephrology is following; their input is appreciated. - Per nephro, may transition to HD today. - Continue monitoring electrolytes and renal function. (8) DVT prophylaxis Current Visit: Yes Status: Acute Argatroban drip as above. Subjective Principal diagnosis: Acute on chronic hypercapnic and hypoxic respiratory failure, Aflutter RVR Interval history: Patient appears comfortable. No events overnight. No family at bedside. Objective PUL Vital signs: Last Vital Signs Temp 97.6 F 05/18/16 07:24 Pulse 65 05/18/16 09:00 Resp 15 05/18/16 09:00 BP 105/52 05/18/16 09:00 Pulse Ox 94 05/18/16 09:00 Ventilator Settings Ventilator Settings: Ventilator Settings, Last 8 Hours Ventilator Mode A/C Ventilator Mode A/C Ventilator Mode A/C Ventilator Mode A/C Ventilator Mode A/C Ventilator Mode A/C Ventilator Mode A/C Ventilator Mode A/C Ventilator Mode A/C Ventilator Mode A/C Ventilator Mode A/C Ventilator Mode A/C Ventilator Mode A/C Ventilator Tidal Volume 600 Setting Ventilator Tidal Volume 600 Setting Ventilator Tidal Volume 600 Setting Ventilator Tidal Volume 600 Setting Ventilator Tidal Volume 600 Setting Ventilator Tidal Volume 600 Setting Ventilator Tidal Volume 600 Setting Ventilator Tidal Volume 600 Setting Ventilator Tidal Volume 12 Setting Ventilator Tidal Volume 600 Setting Ventilator Tidal Volume 600 Setting Ventilator Tidal Volume 600 Setting Ventilator Tidal Volume 600 Setting Ventilator Respiratory Rate 12 Setting Ventilator Respiratory Rate 12 Setting Ventilator Respiratory Rate 12 Setting Ventilator Respiratory Rate 12 Setting Ventilator Respiratory Rate 12 Setting Ventilator Respiratory Rate 12 Setting Ventilator Respiratory Rate 12 Setting Ventilator Respiratory Rate 12 Setting Ventilator Respiratory Rate 500 Setting Ventilator Respiratory Rate 12 Setting Ventilator Respiratory Rate 12 Setting Ventilator Respiratory Rate 12 Setting Ventilator Respiratory Rate 12 Setting Actual Respiratory Rate 15 Actual Respiratory Rate 15 Actual Respiratory Rate 15 Actual Respiratory Rate 15 Actual Respiratory Rate 17 Actual Respiratory Rate 17 Positive End Expiratory 5 Pressure Positive End Expiratory 5 Pressure Positive End Expiratory 5 Pressure Positive End Expiratory 5 Pressure Positive End Expiratory 5 Pressure Positive End Expiratory 5 Pressure Positive End Expiratory 5 Pressure Positive End Expiratory 5 Pressure Positive End Expiratory 5 Pressure Positive End Expiratory 5 Pressure Positive End Expiratory 5 Pressure Positive End Expiratory 5 Pressure Positive End Expiratory 5 Pressure Peak Inspiratory Airway 33 Pressure Peak Inspiratory Airway 34 Pressure Peak Inspiratory Airway 32 Pressure Peak Inspiratory Airway 25 Pressure Peak Inspiratory Airway 27 Pressure Peak Inspiratory Airway 28 Pressure Results - Laboratory Findings CBC and BMP: 05/18/16 03:41 05/18/16 03:41 ABG ABG pH 7.24 pH Units (7.32-7.45) L 05/18/16 03:50 ABG pCO2 69 mmHg (35-45) H 05/18/16 03:50 ABG pO2 67 mmHg (85-104) L 05/18/16 03:50 ABG O2 Saturation 89 % (95-98) L 05/18/16 03:50 PT/INR, D-dimer PT 20.9 Seconds (9.4-12.1) H D 05/18/16 03:41 Abnormal lab findings: Abnormal lab results Plt Count 74 K/mcL (140-400) L 05/18/16 03:41 Band Neutrophils % 40.0 % (0-4) H 05/15/16 03:45 Metamyelocytes % 2.0 % (0) H 05/15/16 03:45 Neutrophils # 9.8 K/mcL (1.6-8.9) H 05/18/16 03:41 Lymphocytes # 0.2 K/mcL (0.6-4.6) L 05/18/16 03:41 Nucleated RBCs/100 WBC 0.2 /100 WBC (0) H 05/17/16 02:20 Toxic Granulation Present (Not Present) A 05/15/16 03:45 Platelet Estimate Decreased (Normal) L 05/16/16 07:35 Immature Plt Fraction 15.1 % (1.1-6.1) H 05/18/16 03:41 PT 20.9 Seconds (9.4-12.1) H D 05/18/16 03:41 APTT 54.9 Seconds (26.0-36.0) H 05/18/16 03:41 ABG pH 7.24 pH Units (7.32-7.45) L 05/18/16 03:50 ABG pCO2 69 mmHg (35-45) H 05/18/16 03:50 ABG pO2 67 mmHg (85-104) L 05/18/16 03:50 ABG HCO3 29.6 mEQ/L (21-27) H 05/18/16 03:50 ABG Total CO2 31.7 mEq/L (20-26) H 05/18/16 03:50 ABG O2 Saturation 89 % (95-98) L 05/18/16 03:50 Potassium 5.5 mEq/L (3.5-4.5) H 05/18/16 03:41 BUN 53 mg/dL (8-26) H D 05/18/16 03:41 Creatinine 2.02 mg/dL (0.72-1.25) H 05/18/16 03:41 Est GFR ( Amer) 40 (> 60) L 05/18/16 03:41 Est GFR (Non-Af Amer) 33 (> 60) L 05/18/16 03:41 Glucose 184 mg/dL (70-99) H 05/18/16 03:41 POC Glucose 157 (58-89) H 05/17/16 23:51 Calculated Osmolality 303 (280-300) H 05/18/16 03:41 Calcium 8.2 mg/dL (8.6-10.8) L 05/18/16 03:41 Ionized Calcium 1.14 mmol/L (1.15-1.35) L 05/17/16 00:48 AST 170 Units/L (5-34) H 05/15/16 03:45 ALT 893 Units/L (0-55) H 05/15/16 03:45 B-Natriuretic Peptide 192 pg/mL (0-100) H 05/12/16 07:05 Albumin 1.8 g/dL (3.5-5.0) L 05/16/16 04:10 Urine Clarity Cloudy (Clear) A 05/13/16 09:50 Urine Protein 30 mg/dL (Neg-Trace) H 05/13/16 09:50 Urine Blood Large (Negative) H 05/13/16 09:50 Urine Microscopic RBC 3-5 per hpf (0-3) H 05/13/16 09:50 Urine Microscopic WBC 5-15 per hpf (0-3) H 05/13/16 09:50 Ur Squamous Epith Cells Many per lpf (None-Few) H 05/13/16 09:50 Coronavirus 229E (PCR) DETECTED (Not Detect) A 05/14/16 16:55 - Clinical Findings Intake & Output: Intake & Output 05/17/16 05/18/16 05/18/16 23:59 07:59 15:59 Intake Total 1347.5 / 1347.5 1282 / 1282 143 / 143 Output Total 2371 / 2371 2060 / 206 608 / 608 Balance -1023.5 / -1023.5 -779 / -779 -465 / -465 Weight 95 kg Consult Discharge Plan - Plan Referrals: Peña Barber MD [Primary Care Provider] -
--- NOTE | 2016-05-18 10:51 | Nephrology Progress Note ---
Date of Encounter: 05/18/16 Time of Encounter: 10:00 - Assessment and Plan (1) JAIDEN (acute kidney injury) Current Visit: Yes Status: Acute Consulted for oligoanuria with worsening renal function plus acute hyperphosphatemia, hyperkalemia, AGMA (with lactic acidosis). On CVVHDF with goal up to net negative of 200ml/hr as tolerated by patient. Dialysate 1250 with Replacement fluid 1250ml/hr for a goal Effluent Dose (ED) of at least 25. Will follow the [place] protocol for titration and potential variables for comparison. Citrate discontinued as patient was started on Argatroban. Dose Rx by a presumed GFR near 20-30 while on Barbi Monitor the Phos, Mag, Calcium, K+ and SCr while on CVVHDF. Calcium 10.2>9.3>8.2 , K+ 4.8>>5.5 and SCr 3.63>2.45>1.82>2.02; Possibly secondary to issues with CVVHDF functioning. Patient's BP and HR remain stable. If there are concerns of CVVHDF not working, clotting, or hindering patient from being extubated we can transition to regular HD tomorrow. (2) Oligouria Current Visit: Yes Status: Acute (3) Hyperkalemia Current Visit: Yes Status: Acute K+ increased from 4.7 yesterday to 5.5 today. Likely continue with CVVHDF. Can transition to regular HD. (4) Hyperphosphatemia Current Visit: Yes Status: Acute (5) Lactic acidosis Current Visit: Yes Status: Acute (6) Septic shock Current Visit: Yes Status: Acute (7) COPD (chronic obstructive pulmonary disease) Current Visit: No Status: Chronic Management per ICU service Qualifiers: COPD type: emphysema Emphysema type: unspecified Qualified Code(s): J43.9 - Emphysema, unspecified (8) Atrial flutter Current Visit: Yes Status: Acute Cardiology following. Patient started on amiodarone and beta unique. Cardio concerned for HIT; DVT prophylaxis switched to argatroban. Qualifiers: Atrial flutter type: unspecified Qualified Code(s): I48.92 - Unspecified atrial flutter Subjective Principal diagnosis: Acute on chronic hypercapnic and hypoxic respiratory failure, Aflutter RVR Interval history: Afebrile. Patient continues on CVVHDF. Nurse reports issues with dialysis and prismaflex reporting negative pressure. H[place]art rate (bpm) continues to be maintained in the 60s. Patient remains sedated on mechanical ventilation. Objective - Vital Signs Vital signs: Vital Signs Temp Pulse Resp BP Pulse Ox 05/18/16 10:04 17 105/52 94 05/18/16 10:00 65 17 118/53 95 05/18/16 09:00 65 15 105/52 94 05/18/16 08:00 67 15 110/55 95 05/18/16 07:52 67 05/18/16 07:24 97.6 F 05/18/16 07:18 15 120/55 95 05/18/16 07:00 67 14 120/55 95 05/18/16 06:09 17 107/54 94 05/18/16 06:00 69 20 107/54 93 05/18/16 05:00 71 14 114/43 92 05/18/16 04:00 98.0 F 72 12 112/54 95 05/18/16 03:44 12 110/77 93 05/18/16 03:00 72 15 117/48 93 05/18/16 02:00 73 15 102/55 93 05/18/16 01:51 17 109/61 93 05/18/16 01:00 71 13 96/51 94 05/18/16 00:05 14 117/51 92 05/18/16 00:00 97.7 F 69 15 117/51 93 05/17/16 23:00 73 15 114/53 93 05/17/16 22:00 70 15 108/51 94 05/17/16 21:40 13 114/50 92 05/17/16 21:00 68 14 109/54 91 05/17/16 20:00 97.7 F 70 14 112/69 94 05/17/16 19:28 16 104/57 94 05/17/16 19:00 71 16 122/55 93 05/17/16 18:00 70 12 121/66 92 05/17/16 17:00 71 12 110/55 91 05/17/16 16:08 12 94 05/17/16 16:00 97.0 F L 71 12 134/53 93 05/17/16 15:00 73 13 126/53 92 05/17/16 14:43 12 91 05/17/16 14:00 73 14 140/42 91 04/12/17 13:00 67 12 118/57 95 05/17/16 12:00 96.8 F L 66 12 119/63 96 05/17/16 11:10 15 92 05/17/16 11:00 66 12 122/56 92 Intake and Output 05/17/16 05/18/16 05/18/16 23:59 07:59 15:59 Intake Total 1347.5 / 1347.5 1282 / 1282 303 / 303 Output Total 2370 / 2371 2060 / 2060 899 / 899 Balance -1023.5 / -1023.5 -779 / -779 -596 / -596 Intake: IV Fluids 652.5 / 652.5 460 / 460 100 / 100 Argatroban 250 MG In 252.5 / 252.5 160 / 160 Dextrose 5% 250 ML @ 2 MCG/KG/MIN 10.93 mls/hr IVC CONT STALIN Rx#: [id number] FentaNYL (PF) 1,000 MCG 100 / 100 100 / 100 In 0.9 % Sodium Chloride 80 ML @ 0.5 MCG/KG/HR 4. 35 mls/hr IVC CONT STALIN Rx #:[id number] Diprivan 1,000 mg In 100 200 / 200 100 / 100 100 / 100 ml @ 30 MCG/KG/MIN 15.66 mls/hr IVC .Q6H24M STALIN Rx #:[id number] Zosyn 3.375 GM In 100 / 100 100 / 100 Dextrose 5% (Minibag+) 100 ML 100 ML @ 25 mls/hr IVPB Q8H STALIN Rx#: [id number] Tube Feeding 695 / 695 822 / 822 203 / 203 Output: Barbi 2370 / 2371 2015 899 / 899 Catheter 0 / 0 45 / 45 0 / 0 Other: Weight 95 kg Blood Glucose* 122 157 Patient Weight 05/18/16 23:59 Weight 95 kg - General Appearance General appearance: Present: well-developed, well-nourished, appears started age EENT: Present: ATNC, mucous membranes dry Respiratory: Present: rhonchi Cardiology: Present: edema (3+ bilateral pitting pretibial edema), regular rate , regular rhythm Dialysis Vascular Access: Venous Catheter Gastrointestinal: Present: no tenderness, no guarding Integumentary: Present: no rash, warm and dry Additional Comments: Unable to asses patient's mentation as he remains sedated on mechanical ventilation. Musculoskeletal: Present: no deformities, no erythema, no cyanosis - Lab 05/18/16 03:41 05/18/16 03:41 Most recent lab results ABG pH 7.24 pH Units (7.32-7.45) L 05/18/16 03:50 ABG pCO2 69 mmHg (35-45) H 05/18/16 03:50 ABG pO2 67 mmHg (85-104) L 05/18/16 03:50 ABG HCO3 29.6 mEQ/L (21-27) H 05/18/16 03:50 ABG O2 Saturation 89 % (95-98) L 05/18/16 03:50 Calcium 8.2 mg/dL (8.6-10.8) L 05/18/16 03:41 Phosphorus 4.7 mg/dL (2.3-4.7) 05/16/16 04:10 Magnesium 2.0 mg/dL (1.6-2.6) 05/15/16 03:45 Urine Creatinine 126 mg/dL 05/13/16 09:12 Urine Sodium 29.0 mEq/L 05/13/16 09:12 Consult Discharge Plan - Plan Referrals: Peña Barber MD [Primary Care Provider] -
[2016-05-18] MEDS: Bisacodyl 10 MG RECTAL SUPPOSITORY RC SCH (11:03)
[2016-05-18] MEDS: Budesonide/Formoterol 160/4.5 MDI IH SCH ×2 (11:07→19:56)
--- NOTE | 2016-05-18 11:16 | Cardiology Progress Note ---
Date of Encounter: 05/18/16 Time of Encounter: 09:30 Assessment and Plan (1) Acute on chronic respiratory failure with hypoxia and hypercapnia Current Visit: Yes Status: Acute Per Cardiology: Remains sedated and intubated. Management per pulmonology. Serologies for coronovirus 229E (+). Leukocytosis improved. On steroids, antibiotics, duonebs. (2) Severe sepsis Current Visit: Yes Status: Acute Per Cardiology: Management per primary. Severe sepsis with lactic acidosis, hypotension, acute kidney injury. Suspect secondary to hospital acquired bacterial pneumonia. Lactic acidosis resolved. (3) JAIDEN (acute kidney injury) Current Visit: Yes Status: Acute Per Cardiology: Management per nephrology. On CRRT. (4) Atrial flutter with rapid ventricular response Current Visit: Yes Status: Acute Per Cardiology: Suspect atrial flutter with RVR due to respiratory failure, COPD, and sepsis. No known afib/flutter hx. Remains SR with avg HR 71, brief afib noted last pm. Off amiodarone gtt and on Amio 200mg PO BID. On Lopressor 12.5mg PO every 6 hrs- - SBP 100's - 120's, will convert to Lopressor 25mg PO BID. Last echo 06/2015 with EF 60%, moderate diastolic dysfunction, mild-mod TR, mild [place], mild-mod PHTN with RVSP 49mm Hg. Will check limited echo now back in SR. Regarding long-term AC, [id number] = 5. Ideally, would recommend terminal operator anticoagulation, however PLT with significant drop during stay. On Citrate for CRRT. HIT panel ordered yesterday, will await results. Will not add asa at this time either with decreased PLT. Currently on argatroban gtt. Will need to address [facility]cfp anticoagulation as patient's condition improves. (5) CAD (coronary artery disease) Current Visit: No Status: Chronic Per Cardiology: Known hx CAD. Last heart catheterization September 2014: left main 20%, proximal LAD patent stent with 20% stenosis, mid circumflex 20% stenosis, OM1 20% stenosis, and mid RCA 50% stenosis. On asa, plavix, BB, Imdur, ARB, statin at home-- all on hold currently d/t decreased PLT, hypotension, and elevated LFTs ( AST = 170, ALT = 893). Check limited echo. Discussion w patient/family: Thank you for involving us in the care of your patient. Please call with any questions. Consider palliative consult to address code status. Subjective Principal diagnosis: Acute on chronic hypercapnic and hypoxic respiratory failure, Aflutter RVR Interval history: Patient remains intubated and sedated. No family currently present at bedside. Objective Vital Signs, Last 4 Hours Temp Pulse Resp BP Pulse Ox 05/18/16 10:04 17 105/52 94 05/18/16 10:00 65 17 118/53 95 05/18/16 09:00 65 15 105/52 94 05/18/16 08:00 67 15 110/55 95 05/18/16 07:52 67 05/18/16 07:24 97.6 F 05/18/16 07:18 15 120/55 95 General: No Apparent Distress Cardiac: Reg Rate and Rhythm, Normal S1 and S2, No Murmur Lungs: Normal Breath Sounds, Other (intubated) Neuro: Other (sedated) Extremities: Other (+1-2 pitting edema bilateral LE) Results 05/18/16 03:41 05/18/16 03:41 Lab Results Laboratory Tests 05/18/16 05/18/16 05/18/16 03:41 03:41 03:41 WBC 10.6 Hgb 13.9 Hct 42.0 Plt Count 74 L INR 1.9 D Potassium 5.5 H Creatinine 2.02 H Est GFR (Non-Af Amer) 33 L Lactic Acid 05/18/16 03:41 WBC Hgb Hct Plt Count INR Potassium Creatinine Est GFR (Non-Af Amer) Lactic Acid 1.1 Intake & Output 05/15/16 05/16/16 05/17/16 05/18/16 23:59 23:59 23:59 23:59 Intake Total 23986 / 28408 3957 / 3957 3242.5 / 3242.5 1655 / 1655 Output Total 3848 / 3848 3841 / 3841 5788 / 5788 3258 / 3258 Balance 81772 / 62495 116 / 116 -2545.5 / -2545.5 -1603 / -1603 Weight 90.2 kg 91.2 kg 95 kg Active Medications Albuterol/Ipratropium (Duoneb) 3 ml IH [id number] STALIN PRN Reason: Protocol Stop: 11/11/16 12:01 Last Admin: 05/18/16 11:07 Dose: 3 ml Amiodarone HCl (Cordarone) 200 mg PO BID STALIN Stop: 11/16/16 09:29 Last Admin: 05/18/16 08:50 Dose: 200 mg Artificial Tears (Lacri-Lube) 1 appl BOTH EYES BID STALIN PRN Reason: Protocol Stop: 11/13/16 15:20 Last Admin: 05/18/16 08:25 Dose: 1 appl Bisacodyl (Dulcolax) 10 mg RC DAILY STALIN Stop: 11/14/16 13:01 Last Admin: 05/18/16 11:03 Dose: 10 mg Budesonide/Formoterol Fumarate (Symbicort) 2 puff IH BIDR STALIN PRN Reason: Protocol Stop: 11/12/16 10:01 Last Admin: 05/18/16 11:07 Dose: 2 puff Chlorhexidine Gluconate (Chlorhexidine Rinse) 15 ml MM BID STALIN Stop: 11/13/16 15:20 Last Admin: 05/18/16 08:24 Dose: 15 ml Fentanyl Citrate 1,000 mcg/ (Sodium Chloride) 100 mls @ 4.35 mls/hr IVC CONT STALIN; 0.5 MCG/KG/HR PRN Reason: Protocol Stop: 11/11/16 11:01 Last Admin: 05/18/16 05:57 Dose: 1.14 mcg/kg/hr, 10 mls/hr Norepinephrine Bitartrate 4 mg (/ Dextrose) 250 mls @ 37.5 mls/hr IVC CONT STALIN ; 10 MCG/MIN PRN Reason: Protocol Stop: 11/11/16 16:01 Last Admin: 05/17/16 15:23 Dose: Not Given Propofol (Diprivan) 1,000 mg in 100 mls @ 15.66 mls/hr IVC .Q6H24M STALIN; 30 MCG/ KG/MIN PRN Reason: Protocol Stop: 11/11/16 16:31 Last Admin: 05/18/16 09:43 Dose: 30 mcg/kg/min, 15.66 mls/hr Sodium Chloride (0.9 % Sodium Chloride) 1,000 mls @ 0 mls/hr PRIME .Q0M STALIN PRN Reason: As Directed Stop: 11/13/16 09:02 Last Admin: 05/16/16 22:55 Dose: 1 mls/hr CRRT Dialysis Solution (Prismasate Bgk 4/2.5) 5,000 mls @ 1,250 mls/hr CRRT CONT STALIN Stop: 11/13/16 09:16 Last Admin: 05/18/16 09:00 Dose: 1 mls/hr CRRT Dialysis Solution (Prismasate Bgk 4/2.5) 5,000 mls @ 1,250 mls/hr CRRT CONT STALIN Stop: 11/13/16 09:16 Last Admin: 05/18/16 09:44 Dose: 1 mls/hr Sodium Chloride (0.9 % Sodium Chloride) 20 mls @ 0 mls/hr IV CONT STALIN PRN Reason: As Directed Stop: 11/13/16 09:16 Last Admin: 05/17/16 10:02 Dose: Not Given Calcium Chloride 4,000 mg/ (Sodium Chloride) 1,040 mls @ 40 mls/hr CRRT CONT STALIN PRN Reason: Protocol Stop: 11/13/16 09:16 Last Admin: 05/17/16 10:00 Dose: Not Given Citrate (Acd-A) 500 mls @ 40 mls/hr CRRT CONT STALIN PRN Reason: Protocol Stop: 11/13/16 09:16 Last Admin: 05/17/16 10:01 Dose: Not Given Calcium Gluconate 1,000 mg/ (Dextrose) 110 mls @ 220 mls/hr IVPB ONCE PRN PRN Reason: SEE COMMENTS Stop: 11/13/16 09:02 Last Infusion: 05/15/16 00:28 Dose: Infused Calcium Gluconate 2,000 mg/ (Dextrose) 120 mls @ 220 mls/hr IVPB ONCE PRN PRN Reason: SEE COMMENTS Stop: 11/13/16 09:02 Piperacillin Sod/Tazobactam (Sod 3.375 gm/ Dextrose) 100 mls @ 25 mls/hr IVPB Q8H STALIN PRN Reason: Protocol Stop: 11/13/16 18:01 Last Admin: 05/18/16 05:04 Dose: 25 mls/hr Argatroban 250 mg/ Dextrose 252.5 mls @ 10.93 mls/hr IVC CONT STALIN; 2 MCG/KG/MIN PRN Reason: Protocol Stop: 11/15/16 18:01 Last Titration: 05/18/16 06:57 Dose: 2 mcg/kg/min, 10.93 mls/hr Metoprolol Tartrate (Lopressor) 12.5 mg PO Q6HR STALIN Stop: 11/16/16 09:28 Last Admin: 05/18/16 05:03 Dose: 12.5 mg Naloxone HCl (Narcan) 0.4 mg IVP Q2MIN PRN PRN Reason: Opioid Reversal Stop: 11/11/16 09:26 Ondansetron HCl (Zofran) 4 mg IVP Q8HR PRN PRN Reason: Nausea And Vomiting Stop: 11/11/16 09:26 Pantoprazole Sodium (Protonix) 40 mg IVP DAILY STALIN Stop: 11/11/16 09:31 Last Admin: 05/18/16 08:24 Dose: 40 mg Prednisone (Prednisone) 100 mg GTUBE DAILY [facility] Stop: 11/17/16 10:46 - Imaging and Cardiology Echo: pending - EKG Interpretation EKG results cardiology: other (24 hr tele shows avg HR 71, SR, very brief afib noted yesterday evening) Consult Discharge Plan - Plan Referrals: Peña Barber MD [Primary Care Provider] -
[2016-05-18] MEDS: predniSONE 20 MG TABLET GTUBE SCH (13:15)
[2016-05-18 14:22] LABS: CK Total (Ck Isoenzymes) 546 U/L (20-200)
[2016-05-18] MEDS: Argatroban 250 MG in D5% in Water 250 ML IVC SCH (17:12)
--- NOTE | 2016-05-18 17:20 | ECHO - Doppler Report ---
Limited Echocardiogram Name: Cam Rothman Date of Study: 05/18/2016 Date: 1945 Ht: 72.0 in Medical Record#: [id number] Age: 71 Wt: 209.0 lb Gender: Male BSA: 2.17 Order #: [id number] Location: [facility] Room #: 11 Reading Physician: Ganesh Blank MD, [facility] Olive Knocker: Earlene Steven Ordering Physician: Lisa Reynoso DO Primary Physician: Peña Barber MD Indications: New onset Afib Impressions: Technically sub-optimal due to poor echocardiographic windows. Grossly normal LV systolic function, estimated LVEF 55-60%. Not all myocardial segments were adequately visualized. Normal right ventricular size and function. Valvular function was not assessed on this limited study. Left Ventricular Wall Motion: Rest Echo Findings The apical inferior, basal inferior, apical anterior and basal anterior cunha were not visualized. All other wall segments showed normal motion. Findings: Study Quality * Technically sub-optimal due to poor echocardiographic windows. ECG Findings * Uncertain rhythm due to poor quality rhythm strip with severe artifact. Rhythm appears regular. Left Ventricle * Grossly normal LV systolic function, estimated LVEF 55-60%. Not all myocardial segments were adequately visualized. * Normal LV chamber size and wall thickness. Right Ventricle * Normal right ventricular size and function. Left Atrium * Normal left atrial size. Right Atrium * Normal right atrial size. Aorta * Normally sized aortic root. Pericardium * There is no pericardial effusion present. History Hypertension Hypercholesteremia History of Smoking Years 51 Packs 0.5 Family History of CAD History of CAD/PTCA Myocardial Infarction 06/18/2015 a Previous Echo was performed. Measurements: BP: 154/ 48 2D Normal Values RVIDd: 3.20 cm IVSd: .90 cm 0.6 - 1.0 cm LVIDd: 4.60 cm 3.7 - 5.6 cm LVPWd: 1.00 cm 0.6 - 1.1 cm LVIDs: 3.40 cm 1.5 - 3.6 cm AO: 3.10 cm < 4.0 cm %FS: 26.10 cm >25 % LA volume: 38 Updated by Ganesh Blank MD, [facility] on 05/18/2016 5:14:04 PM electronically signed on 05/18/2016 5:14:36 PM with status of Final Wall Motion [place]: 1=Normal, 2=Hypokinesis, 3=Akinesis, 4=Dyskinesis, 5=Aneurysmal, 6=Hyperkinetic, X=Not Visualized (Blank)=Missing
[2016-05-18] MEDS: Calcium Chloride 4,000 MG in 0.9 % Sodium Chloride 1,000 ML CRRT SCH (21:20)
[2016-05-18] MEDS: Norepinephrine 4 MG in D5% in Water 250 ML IVC SCH (21:20)
[2016-05-19] MEDS: Ipratropium/Albuterol Neb 3 ML IH SCH ×6 (00:21→20:31)
[2016-05-19] MEDS: PrismaSATE BGK 4/2.5 5,000 ML CRRT SCH ×4 (01:41→05:38)
[2016-05-19 04:54] LABS: ABG Oxygen Saturation 92 % (95-98); ABG PCO2 62 mmHg (35-45); ABG PH 7.23 pH Units (7.32-7.45); ABG PO2 76 mmHg (85-104); ABG TCO2 27.9 mEq/L (20-26)
[2016-05-19 04:58] LABS: Blood Gas FiO2 50 %
[2016-05-19] MEDS: Piperacillin/Tazobactam 3.375 GM in D5% in Water (Mini-Bag+) 100 ML IVPB SCH (05:08)
[2016-05-19] MEDS: FentaNYL (PF) 1,000 MCG in 0.9 % Sodium Chloride 80 ML IVC SCH ×3 (05:38→17:05)
[2016-05-19 06:32] LABS: Calcium 8.4 mg/dL (8.6-10.8); Potassium 5.4 mEq/L (3.5-4.5)
[2016-05-19 06:33] LABS: Basophils % 0.3 %; Mean Corpuscular Volume 94.3 fL (83.0-100.0); Nucleated Red Blood Cells 0.2 /100 WBC (0)
[2016-05-19 06:34] LABS: ABG Base Excess -0.9 mEq/L (-2.0 to 3.0); ABG HCO3 28.9 mEQ/L (21-27); ABG Oxygen Saturation 89 % (95-98); ABG PCO2 69 mmHg (35-45); ABG PH 7.23 pH Units (7.32-7.45); ABG PO2 67 mmHg (85-104); Blood Gas FiO2 50 %
[2016-05-19 06:35] LABS: Basophils # 0.1 K/mcL (0.0-0.2); Hematocrit 46.5 % (37.5-50.1); Immature Granulocytes % 1.6 % (0-4); Immature Platelets 22.2 % (1.1-6.1); Lymphocytes # 0.5 K/mcL (0.6-4.6); Lymphocytes % 2.4 %; Mean Corpuscular HGB Conc 32.3 g/dL (31.6-35.5); Mean Corpuscular Hemoglobin 30.4 pg (28.0-33.3); Mean Platelet Volume 13.2 fL (9.4-12.4); Monocytes # 1.2 K/mcL (0.0-1.3); Monocytes % 6.4 %; Neutrophils # 16.7 K/mcL (1.6-8.9); Red Blood Count 4.93 M/mcL (4.19-5.50); Segmented Neutrophils % 89.3 %
[2016-05-19 06:36] LABS: Platelet Count 76 K/mcL (140-400)
[2016-05-19] MEDS: Budesonide/Formoterol 160/4.5 MDI IH SCH ×2 (07:50→20:31)
--- NOTE | 2016-05-19 08:32 | Pulmonology Progress Note ---
<Demetri Serrano - Last Filed: 05/19/16 11:13> Date of Encounter: 05/19/16 Time of Encounter: 08:27 Assessment and Plan (1) Acute on chronic respiratory failure with hypoxia and hypercapnia Current Visit: Yes Status: Acute Serologies for coronovirus 229E (+) Blood cultures (-) to date. Legionella Ag (-) Strep pneumo Ag (-) Sputum culture (-); however this was collected appx 10 hours after first IV abx dose. CXR 05/14/16: radiology impression - RLL airspace disease, stable. Leukocytosis of 18.7 > 10.6. Repeat CBC confirmed leukocytosis. No lactic acidosis per stat lactate. - Discontinue Zosyn - Begin Vancomycin, day 1 - Begin meropenem, day 1 - Portable CXR for interval eval. - Obtain cultures: blood, sputum - Place either new midline or new central line - Discontinue existing right IJ central line Patient mechanically ventilated. ABG continues to show acceptable mild acidosis. Patient hypercarbic with pCO2 69. Not entirely explained by his minute ventilation; this may be in part to excessive carbs from tube feedings - Change diet to lower carb, low K+ tube feedings - Continue DuoNeb, symbicort, IV steroids 125mg Q8hr. - Breathing trial today. - Sedation holiday. A. Flutter resolved. HR sinus rhythm in the 60's with rare PVC's. Cardiology has signed off. Their input has been appreciated. Will re-consult as needed. Cardiac echo 05/18: suboptimal study as pt. on [facility]. vent. LVEF 50-60%. Grossly normal LV systolic function. Unable to assess valvular function. Patient exhibited motteling of tip of nose, auricular tubercle of ear, and toes. Pedal pulses 2+, feet warm, capillary refill brisk. - Consult palliative care. (2) Acute exacerbation of chronic obstructive pulmonary disease Current Visit: Yes Status: Acute Likely secondary to hospital acquired bacterial pneumonia. Plan as above. (3) Severe sepsis Current Visit: Yes Status: Acute Severe sepsis with lactic acidosis, hypotension, acute kidney injury. Likely secondary to hospital acquired bacterial pneumonia. Lactic acidosis resolved. Plan as above. (4) Hospital-acquired pneumonia Current Visit: Yes Status: Acute Last discharged 05/03 from [facility]. Plan as above. (5) Thrombocytopenia Current Visit: Yes Status: Acute Thrombocytopenia. PLT 240 on intake. Today 76 > 74 > 66. Possible source of thrombocytopenia is CRRT hemodialysis vs antibiotics (zosyn, vanc) vs HIT vs other. 4T's score for HIT = 5; Intermediate probability. Patient received heparin on his last visit and on this visit. HIT Ab returned (-) - Discontinue argatroban and serial coag studies. - Begin Heparin SQ DVT prophylaxis. (6) Lactic acidosis Current Visit: Yes Status: Resolved Secondary to severe sepsis. Resolved 05/18. (7) JAIDEN (acute kidney injury) Current Visit: Yes Status: Acute Currently on CRRT diuresis. Nephrology has set max net negative CRRT diuresis of 200 on the condition of stable vitals. BP and HR currently tolerating CVVHDF of net negative UF of 170cc/hr. Peripheral edema stable vs yesterday. Nephrology is following; their input is appreciated. Hyperkalemia at 5.4. - Per nephro, will switch to low K+ setting on Barbi - Per nephro, may transition to HD today. - Will change tube feedings to lower carb, lower K+ - Continue monitoring electrolytes and renal function. (8) DVT prophylaxis Current Visit: Yes Status: Acute Heparin SQ. Subjective Principal diagnosis: Acute on chronic hypercapnic and hypoxic respiratory failure, Aflutter RVR Interval history: Patient seen and examined. Patient appears comfortable. Overnight nurse noted progressive changes throughout her shift - decreased gag reflex, mottling on patient nose and auricular tubercle of ear. No family at bedside. Objective PUL Vital signs: Last Vital Signs Temp 96.3 F L 05/19/16 04:04 Pulse 75 05/19/16 07:00 Resp 19 05/19/16 07:00 BP 83/54 05/19/16 07:00 Pulse Ox 98 05/19/16 07:00 General appearance: no acute distress, other (sedated, ventilated) Eyes: nonicteric ENT: oropharynx dry, other (motteling on tip of nose, auricular tubercle of ear , and toes) Neck: supple Effort: normal Auscultation: bilateral: diminished breath sounds Cardiovascular: regular rate and rhythm, PVC's noted Gastrointestinal: normoactive bowel sounds, soft, non-distended Integumentary: other (motteling as noted above) Extremities: edema, other (motteling of toes, pedal pulses 2+, warm.) Musculoskeletal: no deformities unable to assess due to mental status Ventilator Settings Ventilator Settings: Ventilator Settings, Last 8 Hours Ventilator Mode A/C Ventilator Mode A/C Ventilator Mode A/C Ventilator Mode A/C Ventilator Mode A/C Ventilator Mode A/C Ventilator Mode A/C Ventilator Mode A/C Ventilator Mode A/C Ventilator Mode A/C Ventilator Mode A/C Ventilator Tidal Volume 600 Setting Ventilator Tidal Volume 600 Setting Ventilator Tidal Volume 600 Setting Ventilator Tidal Volume 600 Setting Ventilator Tidal Volume 600 Setting Ventilator Tidal Volume 600 Setting Ventilator Tidal Volume 600 Setting Ventilator Tidal Volume 600 Setting Ventilator Tidal Volume 600 Setting Ventilator Tidal Volume 600 Setting Ventilator Tidal Volume 600 Setting Ventilator Respiratory Rate 16 Setting Ventilator Respiratory Rate 16 Setting Ventilator Respiratory Rate 16 Setting Ventilator Respiratory Rate 16 Setting Ventilator Respiratory Rate 12 Setting Ventilator Respiratory Rate 12 Setting Ventilator Respiratory Rate 12 Setting Ventilator Respiratory Rate 12 Setting Ventilator Respiratory Rate 12 Setting Ventilator Respiratory Rate 12 Setting Ventilator Respiratory Rate 12 Setting Actual Respiratory Rate 19 Actual Respiratory Rate 13 Positive End Expiratory 5 Pressure Positive End Expiratory 5 Pressure Positive End Expiratory 5 Pressure Positive End Expiratory 5 Pressure Positive End Expiratory 5 Pressure Positive End Expiratory 5 Pressure Positive End Expiratory 5 Pressure Positive End Expiratory 5 Pressure Positive End Expiratory 5 Pressure Positive End Expiratory 5 Pressure Positive End Expiratory 5 Pressure Peak Inspiratory Airway 31 Pressure Peak Inspiratory Airway 31 Pressure Results - Laboratory Findings CBC and BMP: 05/19/16 08:30 05/19/16 06:10 ABG ABG pH 7.23 pH Units (7.32-7.45) L 05/19/16 06:20 ABG pCO2 69 mmHg (35-45) H 05/19/16 06:20 ABG pO2 67 mmHg (85-104) L 05/19/16 06:20 ABG O2 Saturation 89 % (95-98) L 05/19/16 06:20 PT/INR, D-dimer PT 20.9 Seconds (9.4-12.1) H D 05/18/16 03:41 Abnormal lab findings: Abnormal lab results WBC 18.7 K/mcL (4.3-11.1) H D 05/19/16 06:10 Plt Count 76 K/mcL (140-400) L 05/19/16 06:10 MPV 13.2 fL (9.4-12.4) H 05/19/16 06:10 Band Neutrophils % 40.0 % (0-4) H 05/15/16 03:45 Metamyelocytes % 2.0 % (0) H 05/15/16 03:45 Neutrophils # 16.7 K/mcL (1.6-8.9) H 05/19/16 06:10 Lymphocytes # 0.5 K/mcL (0.6-4.6) L 05/19/16 06:10 Nucleated RBCs/100 WBC 0.2 /100 WBC (0) H 05/19/16 06:10 Toxic Granulation Present (Not Present) A 05/15/16 03:45 Platelet Estimate Decreased (Normal) L 05/16/16 07:35 Immature Plt Fraction 22.2 % (1.1-6.1) H 05/19/16 06:10 PT 20.9 Seconds (9.4-12.1) H D 05/18/16 03:41 APTT 57.3 Seconds (26.0-36.0) H 05/19/16 03:55 ABG pH 7.23 pH Units (7.32-7.45) L 05/19/16 06:20 ABG pCO2 69 mmHg (35-45) H 05/19/16 06:20 ABG pO2 67 mmHg (85-104) L 05/19/16 06:20 ABG HCO3 28.9 mEQ/L (21-27) H 05/19/16 06:20 ABG Total CO2 31.0 mEq/L (20-26) H 05/19/16 06:20 ABG O2 Saturation 89 % (95-98) L 05/19/16 06:20 Potassium 5.4 mEq/L (3.5-4.5) H 05/19/16 06:10 BUN 49 mg/dL (8-26) H 05/19/16 06:10 Creatinine 1.44 mg/dL (0.72-1.25) H 05/19/16 06:10 Est GFR ( Amer) 59 (> 60) L 05/19/16 06:10 Est GFR (Non-Af Amer) 48 (> 60) L 05/19/16 06:10 BUN/Creatinine Ratio 34 (6-26) H 05/19/16 06:10 Glucose 166 mg/dL (70-99) H 05/19/16 06:10 POC Glucose 137 (58-89) H 05/19/16 00:21 Calcium 8.4 mg/dL (8.6-10.8) L 05/19/16 06:10 Ionized Calcium 1.14 mmol/L (1.15-1.35) L 05/17/16 00:48 AST 170 Units/L (5-34) H 05/15/16 03:45 ALT 893 Units/L (0-55) H 05/15/16 03:45 Creatine Kinase 546 U/L (20-200) H 05/15/16 03:45 CK-BB (CK-1) 1 % (0-0) H 05/15/16 03:45 B-Natriuretic Peptide 192 pg/mL (0-100) H 05/12/16 07:05 Albumin 1.8 g/dL (3.5-5.0) L 05/16/16 04:10 Urine Clarity Cloudy (Clear) A 05/13/16 09:50 Urine Protein 30 mg/dL (Neg-Trace) H 05/13/16 09:50 Urine Blood Large (Negative) H 05/13/16 09:50 Urine Microscopic RBC 3-5 per hpf (0-3) H 05/13/16 09:50 Urine Microscopic WBC 5-15 per hpf (0-3) H 05/13/16 09:50 Ur Squamous Epith Cells Many per lpf (None-Few) H 05/13/16 09:50 Coronavirus 229E (PCR) DETECTED (Not Detect) A 05/14/16 16:55 - Clinical Findings Intake & Output: Intake & Output 05/18/16 05/19/16 05/19/16 23:59 07:59 15:59 Intake Total 516 / 516 887 / 887 Output Total 2061 / 2061 2484 / 2484 Balance -1546 / -1546 -1597 / -1597 Consult Discharge Plan - Plan Referrals: Peña Barber MD [Primary Care Provider] - <Erik Medina - Last Filed: 05/19/16 14:43> Date of Encounter: 05/19/16 Objective PUL Vital signs: Last Vital Signs Temp 97.5 F L 05/19/16 09:00 Pulse 75 05/19/16 12:00 Resp 20 05/19/16 12:00 BP 98/53 05/19/16 12:00 Pulse Ox 97 05/19/16 12:00 Ventilator Settings Ventilator Settings: Ventilator Settings, Last 8 Hours Ventilator Mode A/C Ventilator Mode A/C Ventilator Mode A/C Ventilator Mode A/C Ventilator Mode A/C Ventilator Mode A/C Ventilator Tidal Volume 600 Setting Ventilator Tidal Volume 600 Setting Ventilator Tidal Volume 600 Setting Ventilator Tidal Volume 600 Setting Ventilator Tidal Volume 600 Setting Ventilator Tidal Volume 600 Setting Ventilator Respiratory Rate 16 Setting Ventilator Respiratory Rate 16 Setting Ventilator Respiratory Rate 16 Setting Ventilator Respiratory Rate 16 Setting Ventilator Respiratory Rate 16 Setting Ventilator Respiratory Rate 16 Setting Positive End Expiratory 5 Pressure Positive End Expiratory 5 Pressure Positive End Expiratory 5 Pressure Positive End Expiratory 5 Pressure Positive End Expiratory 5 Pressure Positive End Expiratory 5 Pressure Peak Inspiratory Airway 30 Pressure Peak Inspiratory Airway 33 Pressure Peak Inspiratory Airway 34 Pressure Peak Inspiratory Airway 28 Pressure Peak Inspiratory Airway 32 Pressure Results - Laboratory Findings CBC and BMP: 05/19/16 13:37 05/19/16 13:37 ABG ABG pH 7.23 pH Units (7.32-7.45) L 05/19/16 06:20 ABG pCO2 69 mmHg (35-45) H 05/19/16 06:20 ABG pO2 67 mmHg (85-104) L 05/19/16 06:20 ABG O2 Saturation 89 % (95-98) L 05/19/16 06:20 PT/INR, D-dimer PT 20.9 Seconds (9.4-12.1) H D 05/18/16 03:41 Abnormal lab findings: Abnormal lab results WBC 20.0 K/mcL (4.3-11.1) H 05/19/16 13:37 Plt Count 68 K/mcL (140-400) L 05/19/16 13:37 MPV 12.9 fL (9.4-12.4) H 05/19/16 13:37 Band Neutrophils % 40.0 % (0-4) H 05/15/16 03:45 Metamyelocytes % 2.0 % (0) H 05/15/16 03:45 Neutrophils # 16.7 K/mcL (1.6-8.9) H 05/19/16 06:10 Lymphocytes # 0.5 K/mcL (0.6-4.6) L 05/19/16 06:10 Nucleated RBCs/100 WBC 0.2 /100 WBC (0) H 05/19/16 06:10 Toxic Granulation Present (Not Present) A 05/15/16 03:45 Platelet Estimate Decreased (Normal) L 05/16/16 07:35 Immature Plt Fraction 23.1 % (1.1-6.1) H 05/19/16 13:37 PT 20.9 Seconds (9.4-12.1) H D 05/18/16 03:41 APTT 57.3 Seconds (26.0-36.0) H 05/19/16 03:55 ABG pH 7.23 pH Units (7.32-7.45) L 05/19/16 06:20 ABG pCO2 69 mmHg (35-45) H 05/19/16 06:20 ABG pO2 67 mmHg (85-104) L 05/19/16 06:20 ABG HCO3 28.9 mEQ/L (21-27) H 05/19/16 06:20 ABG Total CO2 31.0 mEq/L (20-26) H 05/19/16 06:20 ABG O2 Saturation 89 % (95-98) L 05/19/16 06:20 Sodium 135 mEq/L (136-145) L 05/19/16 13:37 Potassium 6.0 mEq/L (3.5-4.5) H 05/19/16 13:37 BUN 53 mg/dL (8-26) H 05/19/16 13:37 Creatinine 1.98 mg/dL (0.72-1.25) H 05/19/16 13:37 Est GFR ( Amer) 41 (> 60) L 05/19/16 13:37 Est GFR (Non-Af Amer) 34 (> 60) L 05/19/16 13:37 BUN/Creatinine Ratio 27 (6-26) H 05/19/16 13:37 Glucose 219 mg/dL (70-99) H 05/19/16 13:37 POC Glucose 163 (58-89) H 05/19/16 13:02 Calculated Osmolality 301 (280-300) H 05/19/16 13:37 Calcium 6.7 mg/dL (8.6-10.8) L D 05/19/16 13:37 Ionized Calcium 1.14 mmol/L (1.15-1.35) L 05/17/16 00:48 AST 170 Units/L (5-34) H 05/15/16 03:45 ALT 893 Units/L (0-55) H 05/15/16 03:45 Creatine Kinase 546 U/L (20-200) H 05/15/16 03:45 CK-BB (CK-1) 1 % (0-0) H 05/15/16 03:45 B-Natriuretic Peptide 192 pg/mL (0-100) H 05/12/16 07:05 Albumin 1.8 g/dL (3.5-5.0) L 05/16/16 04:10 Urine Clarity Cloudy (Clear) A 05/13/16 09:50 Urine Protein 30 mg/dL (Neg-Trace) H 05/13/16 09:50 Urine Blood Large (Negative) H 05/13/16 09:50 Urine Microscopic RBC 3-5 per hpf (0-3) H 05/13/16 09:50 Urine Microscopic WBC 5-15 per hpf (0-3) H 05/13/16 09:50 Ur Squamous Epith Cells Many per lpf (None-Few) H 05/13/16 09:50 Coronavirus 229E (PCR) DETECTED (Not Detect) A 05/14/16 16:55 - Clinical Findings Intake & Output: Intake & Output 05/18/16 05/19/16 05/19/16 23:59 07:59 15:59 Intake Total 516 / 516 887 / 887 679.0 / 679.0 Output Total 2062 / 2062 2484 / 2484 1404 / 1404 Balance -1546 / -1546 -1597 / -1597 -725.0 / -725.0 - Attending Attestation I have examined the patient, reviewed all labs, reviewed all pertinent imaging. The cases been discussed on multidisciplinary Rounds and I agree with the resident's note as written with the following additions. GATE WATCH: Currently sedated with propofol and fentanyl. Sodium awake on sedation holiday. We will continue sedation holiday until mental status improves. Cardiovascular: Hemodynamically stable. Tachyarrhythmias now resolved. Metoprolol dose reduced by cardiology service. Amiodarone now by mouth. Pulmonary: Admitted for catheter. Persistent respiratory acidosis while on ventilator despite relatively high minute ventilation. Possibly due to increased space ventilation from underlying lung disease. Possible hypercapnia due to carbohydrate nutrition. Otherwise patient tolerating permissive hypercapnia well. Nephrology: Patient continues on CRRT and overall tolerating well. Has been net negative approximately 1 L per day for the past 2 days. Defer further management to nephrology. GI: Tolerating enteral feeds well. We will change feeds to Nepro today for lower carbohydrate and lower potassium. ID: Increased leukocytosis today and hypothermia requiring warming blanket. Concerning for appearance of infection or sepsis. Broad antibiotic coverage, change Zosyn to meropenem and add vancomycin. We will obtain blood and sputum cultures. Obtain new chest x-ray. Patient has left left femoral central venous catheter. We will discontinue as soon as alternate venous access can be obtained. HO: HIT serologies negative. We will discontinue argatroban and restart heparin prophylaxis. Endo: No acute issues. MS: No skin breakdowns. Disposition: Patient remained in MICU. Total critical care time 45 minutes.
[2016-05-19 08:39] LABS: Hematocrit 47.3 % (37.5-50.1); Immature Platelets 21.6 % (1.1-6.1); Mean Corpuscular HGB Conc 31.7 g/dL (31.6-35.5); Mean Corpuscular Hemoglobin 30.2 pg (28.0-33.3); Mean Corpuscular Volume 95.2 fL (83.0-100.0); Mean Platelet Volume 13.2 fL (9.4-12.4); Red Blood Count 4.97 M/mcL (4.19-5.50)
[2016-05-19] MEDS: Pantoprazole 40 MG VIAL IVP SCH (08:53)
[2016-05-19] MEDS: Chlorhexidine Rinse 15 ML MOUTHWASH MM SCH ×2 (08:53→21:30)
[2016-05-19] MEDS: Lacri-Lube 3.5 GM TUBE BOTH EYES SCH ×2 (08:55→21:35)
[2016-05-19] MEDS: *HR* Amiodarone 200 MG TABLET PO SCH ×2 (08:59→21:31)
[2016-05-19] MEDS: Bisacodyl 10 MG RECTAL SUPPOSITORY RC SCH (09:00)
--- NOTE | 2016-05-19 09:07 | Cardiology Progress Note ---
Date of Encounter: 05/19/16 Time of Encounter: 09:30 Assessment and Plan (1) Acute on chronic respiratory failure with hypoxia and hypercapnia Current Visit: Yes Status: Acute Per Cardiology: Remains sedated and intubated. Management per pulmonology. Serologies for coronovirus 229E (+). Leukocytosis improved. On steroids, antibiotics, duonebs. (2) Severe sepsis Current Visit: Yes Status: Acute Per Cardiology: Management per primary. Severe sepsis with lactic acidosis, hypotension, acute kidney injury. Suspect secondary to hospital acquired bacterial pneumonia. Lactic acidosis resolved. (3) JAIDEN (acute kidney injury) Current Visit: Yes Status: Acute Per Cardiology: Management per nephrology. On CRRT. (4) Atrial flutter with rapid ventricular response Current Visit: Yes Status: Acute Per Cardiology: Suspect atrial flutter with RVR due to respiratory failure, COPD, and sepsis. No known afib/flutter hx. Remains SR occasional PACs and PVCs with avg HR 71, no recurrent atrial flutter or fibrillation noted. Off amiodarone gtt and on Amio 200mg PO BID. On Lopressor 25mg PO BID-- most recent systolic blood pressure in the 80s, will decrease Lopressor to 12 mg by mouth twice a day. Last echo 06/2015 with EF 60%, moderate diastolic dysfunction, mild-mod TR, mild VA, mild-mod PHTN with RVSP 49mm Hg. Limited echo shows EF preserved at 55-60%. Regarding long-term AC, [id number] = 5. Ideally, would recommend nursing home anticoagulation, however PLT with significant drop during stay and nursing home prognosis remains tenuous. On Citrate for CRRT. HIT panel negative, argatroban off and now back on Heparin SQ 5,000 units q8h. Will not add asa at this time either with decreased PLT. Palliative care consult pending. Will need director long term care AC addressed if clinical condition improves (most likely asa vs Coumadin). Consider adding asa if/when able. Discussed with primary team. Cardiology will sign off, re-consult as needed, f/ u scheduled in outpatient setting if improves. (5) CAD (coronary artery disease) Current Visit: No Status: Chronic Per Cardiology: Known hx CAD. Last heart catheterization September 2014: left main 20%, proximal LAD patent stent with 20% stenosis, mid circumflex 20% stenosis, OM1 20% stenosis, and mid RCA 50% stenosis. On asa, plavix, BB, Imdur, ARB, statin at home-- all on hold currently d/t decreased PLT, hypotension, and elevated LFTs ( AST = 170, ALT = 893). Echo showed EF preserved at 55-60%. Consider resuming home medications as clinically warranted and as condition improves. Qualifiers: Qualified Code(s): I25.118 - Atherosclerotic heart disease of [place] coronary artery with other forms of angina pectoris Discussion w patient/family: Thank you for involving us in the care of your patient. Please call with any questions. Subjective Principal diagnosis: Acute on chronic hypercapnic and hypoxic respiratory failure, Aflutter RVR Interval history: Patient remains intubated and sedated. No family currently present at bedside. Objective Vital Signs, Last 4 Hours Pulse Resp BP Pulse Ox 05/19/16 07:00 75 19 83/54 98 05/19/16 06:00 70 19 106/62 99 05/19/16 05:51 19 99 Results 05/19/16 08:30 05/19/16 06:10 Lab Results Laboratory Tests 05/16/16 05/19/16 05/19/16 15:55 06:10 06:10 WBC 18.7 H D Plt Count 76 L Creatinine 1.44 H Est GFR (Non-Af Amer) 48 L Heparin-PF4 IgG Ab 0.063 Intake & Output 05/16/16 05/17/16 05/18/16 05/19/16 23:59 23:59 23:59 23:59 Intake Total 3957 / 3957 3052.5 / 3052.5 2437.5 / 2437.5 966.1 / 966.1 Output Total 3841 / 3841 5788 / 5788 6511 / 6511 2484 / 2484 Balance 116 / 116 -2735.5 / -2735.5 -4073.5 / -4073.5 -1517.9 / -1517.9 Weight 90.2 kg 91.2 kg 95 kg Active Medications Albuterol/Ipratropium (Duoneb) 3 ml IH [id number] STALIN PRN Reason: Protocol Stop: 11/11/16 12:01 Last Admin: 05/19/16 07:50 Dose: 3 ml Amiodarone HCl (Cordarone) 200 mg PO BID STALIN Stop: 11/16/16 09:29 Last Admin: 05/19/16 08:59 Dose: 200 mg Artificial Tears (Lacri-Lube) 1 appl BOTH EYES BID STALIN PRN Reason: Protocol Stop: 11/13/16 15:20 Last Admin: 05/19/16 08:55 Dose: 1 appl Bisacodyl (Dulcolax) 10 mg RC DAILY STALIN Stop: 11/14/16 13:01 Last Admin: 05/19/16 09:00 Dose: 10 mg Budesonide/Formoterol Fumarate (Symbicort) 2 puff IH BIDR STALIN PRN Reason: Protocol Stop: 11/12/16 10:01 Last Admin: 05/19/16 07:50 Dose: 2 puff Chlorhexidine Gluconate (Chlorhexidine Rinse) 15 ml MM BID STALIN Stop: 11/13/16 15:20 Last Admin: 05/19/16 08:53 Dose: 15 ml Heparin Sodium (Porcine) (Heparin) 5,000 unit SQ Q8HCO STALIN Stop: 11/18/16 14:01 Fentanyl Citrate 1,000 mcg/ (Sodium Chloride) 100 mls @ 4.35 mls/hr IVC CONT STALIN; 0.5 MCG/KG/HR PRN Reason: Protocol Stop: 11/11/16 11:01 Last Infusion: 05/19/16 08:00 Dose: 1.14 mcg/kg/hr, 10 mls/hr Norepinephrine Bitartrate 4 mg (/ Dextrose) 250 mls @ 37.5 mls/hr IVC CONT STALIN ; 10 MCG/MIN PRN Reason: Protocol Stop: 11/11/16 16:01 Last Admin: 05/18/16 21:20 Dose: Not Given Propofol (Diprivan) 1,000 mg in 100 mls @ 15.66 mls/hr IVC .Q6H24M STALIN; 30 MCG/ KG/MIN PRN Reason: Protocol Stop: 11/11/16 16:31 Last Titration: 05/19/16 08:55 Dose: 0 mcg/kg/min, 0 mls/hr Sodium Chloride (0.9 % Sodium Chloride) 1,000 mls @ 0 mls/hr PRIME .Q0M STALIN PRN Reason: As Directed Stop: 11/13/16 09:02 Last Admin: 05/16/16 22:55 Dose: 1 mls/hr CRRT Dialysis Solution (Prismasate Bgk 4/2.5) 5,000 mls @ 1,250 mls/hr CRRT CONT STALIN Stop: 11/13/16 09:16 Last Admin: 05/19/16 05:37 Dose: 1 mls/hr CRRT Dialysis Solution (Prismasate Bgk 4/2.5) 5,000 mls @ 1,250 mls/hr CRRT CONT STALIN Stop: 11/13/16 09:16 Last Admin: 05/19/16 05:38 Dose: 1 mls/hr Sodium Chloride (0.9 % Sodium Chloride) 20 mls @ 0 mls/hr IV CONT STALIN PRN Reason: As Directed Stop: 11/13/16 09:16 Last Admin: 05/18/16 21:19 Dose: Not Given Calcium Chloride 4,000 mg/ (Sodium Chloride) 1,040 mls @ 40 mls/hr CRRT CONT STALIN PRN Reason: Protocol Stop: 11/13/16 09:16 Last Admin: 05/18/16 21:20 Dose: Not Given Citrate (Acd-A) 500 mls @ 40 mls/hr CRRT CONT STALIN PRN Reason: Protocol Stop: 11/13/16 09:16 Last Admin: 05/18/16 21:20 Dose: Not Given Calcium Gluconate 1,000 mg/ (Dextrose) 110 mls @ 220 mls/hr IVPB ONCE PRN PRN Reason: SEE COMMENTS Stop: 11/13/16 09:02 Last Infusion: 05/15/16 00:28 Dose: Infused Calcium Gluconate 2,000 mg/ (Dextrose) 120 mls @ 220 mls/hr IVPB ONCE PRN PRN Reason: SEE COMMENTS Stop: 11/13/16 09:02 Piperacillin Sod/Tazobactam (Sod 3.375 gm/ Dextrose) 100 mls @ 25 mls/hr IVPB Q8H STALIN PRN Reason: Protocol Stop: 11/13/16 18:01 Last Infusion: 05/19/16 08:40 Dose: 25 mls/hr Metoprolol Tartrate (Lopressor) 25 mg PO BID STALIN Stop: 11/17/16 21:01 Last Admin: 05/18/16 20:12 Dose: 25 mg Naloxone HCl (Narcan) 0.4 mg IVP Q2MIN PRN PRN Reason: Opioid Reversal Stop: 11/11/16 09:26 Ondansetron HCl (Zofran) 4 mg IVP Q8HR PRN PRN Reason: Nausea And Vomiting Stop: 11/11/16 09:26 Pantoprazole Sodium (Protonix) 40 mg IVP DAILY [facility] Stop: 11/11/16 09:31 Last Admin: 05/19/16 08:53 Dose: 40 mg Prednisone (Prednisone) 100 mg GTUBE DAILY [facility] Stop: 11/17/16 10:46 Last Admin: 05/18/16 13:15 Dose: 100 mg - Imaging and Cardiology Echo: report reviewed (Peripheral telemetry review with average heart rate 71, sinus rhythm with PACs and PVCs, no further A flutter and A. fib appreciated) - EKG Interpretation EKG results cardiology: other Consult Discharge Plan - Plan Referrals: Peña Barber MD [Primary Care Provider] -
[2016-05-19] MEDS: predniSONE 20 MG TABLET GTUBE SCH (09:20)
[2016-05-19] MEDS ORDERED: PrismaSATE BGK 2/0 5,000 ML CRRT SCH (09:45)
[2016-05-19] MEDS: PrismaSATE BGK 2/0 5,000 ML CRRT SCH ×2 (09:57→13:20)
--- NOTE | 2016-05-19 11:07 | Nephrology Progress Note ---
Date of Encounter: 05/19/16 Time of Encounter: 10:00 - Assessment and Plan (1) JAIDEN (acute kidney injury) Current Visit: Yes Status: Acute Consulted for oligoanuria with worsening renal function plus acute hyperphosphatemia, hyperkalemia, AGMA (with lactic acidosis). On CVVHDF with goal up to net negative of 200ml/hr as tolerated by patient. Dialysate 1250 with Replacement fluid 1250ml/hr for a goal Effluent Dose (ED) of at least 25. Will follow the [facility] protocol for titration and potential variables for comparison. Dose Rx by a presumed GFR near 20-30 while on Barbi Continue to monitor the Phos, Mag, Calcium, K+ and SCr while on CVVHDF. Updates: Due to hyperkalemia, prismasate switched form 4K bath to 2K bath. Citrate was discontinued when patient was started on Argatroban. Patient switched back to SQ Heparin, will likely need to restart citrate. Plan to continue with CVVHDF for now; had discussed transitioning to regular HD , but patient's BP more labile this AM. (2) Acute on chronic respiratory failure with hypoxia and hypercapnia Current Visit: Yes Status: Acute Management per primary ICU team. Patient mechanically ventilated. ABG continues to show mild acidosis. CXR 05/14/16: radiology impression - RLL airspace disease, stable Leukocytosis from WBC 10.6>18.7. ICU ordering CXR, lactic, blood/sputum cultures. Beginning Vancomycin and Meropenem. Patient exhibited mottling of tip of nose, auricular tubercle of ear. Pedal pulses 2+, feet warm, capillary refill brisk. Consult palliative care placed. (3) Oligouria Current Visit: Yes Status: Acute (4) Hyperkalemia Current Visit: Yes Status: Acute K+ increased from 4.7>5.5>5.4 Decreased to 2K bath for CVVHDF (5) Hyperphosphatemia Current Visit: Yes Status: Acute (6) Lactic acidosis Current Visit: Yes Status: Resolved (7) Septic shock Current Visit: Yes Status: Acute (8) COPD (chronic obstructive pulmonary disease) Current Visit: No Status: Chronic Management per ICU service Qualifiers: COPD type: emphysema Emphysema type: unspecified Qualified Code(s): J43.9 - Emphysema, unspecified (9) Atrial flutter Current Visit: Yes Status: Resolved Seen by Cardiology. Patient return to regular rhythm, continuing on amiodarone and beta unique. Qualifiers: Atrial flutter type: unspecified Qualified Code(s): I48.92 - Unspecified atrial flutter Subjective Principal diagnosis: Acute on chronic hypercapnic and hypoxic respiratory failure, Aflutter RVR Interval history: Afebrile. Patient continues on CVVHDF. Nurse reports issues with dialysis and prismaflex reporting negative pressure. Hesart rate (bpm) continues to be maintained in the 60s. Patient remains sedated on mechanical ventilation. Objective - Vital Signs Vital signs: Vital Signs Temp Pulse Resp BP Pulse Ox 05/19/16 10:00 79 19 112/52 97 05/19/16 09:00 97.5 F L 75 19 108/62 98 05/19/16 08:00 71 16 83/55 98 05/19/16 07:00 75 19 83/54 98 05/19/16 06:00 70 19 106/62 99 05/19/16 05:51 19 99 05/19/16 05:00 67 15 122/70 99 05/19/16 04:04 96.3 F L 68 18 111/57 97 05/19/16 04:00 68 05/19/16 03:45 14 97 05/19/16 03:00 68 17 97/50 96 05/19/16 02:00 64 18 113/54 96 05/19/16 01:06 63 15 92/54 96 05/19/16 00:19 17 97 05/19/16 00:00 65 12 86/58 99 05/18/16 23:00 63 15 112/67 98 05/18/16 22:31 15 98 05/18/16 22:00 63 19 95/55 97 05/18/16 21:00 97.2 F L 75 18 108/62 97 05/18/16 20:00 97.2 F L 75 18 108/62 97 05/18/16 19:57 16 98 05/18/16 19:00 76 16 129/62 98 05/18/16 18:57 74 20 113/57 96 05/18/16 18:00 78 20 138/69 98 05/18/16 17:00 82 20 155/69 92 05/18/16 16:00 75 17 155/74 94 05/18/16 15:42 17 94 05/18/16 15:17 97.4 F L 05/18/16 15:00 75 16 154/48 93 05/18/16 14:00 69 20 143/57 94 05/18/16 13:12 17 94 05/18/16 13:00 66 16 109/54 96 05/18/16 12:00 97.3 F L 66 16 110/54 96 05/18/16 11:07 18 112/50 92 05/18/16 11:00 66 12 112/50 96 Intake and Output 05/18/16 05/19/16 05/19/16 23:59 07:59 15:59 Intake Total 516 / 516 887 / 887 365.0 / 365.0 Output Total 2061 / 2061 2484 / 2484 933 / 933 Balance -1546 / -1546 -1597 / -1597 -568.0 / -568.0 Intake: IV Fluids 260 / 260 441 / 441 169.0 / 169.0 Argatroban 250 MG In 141 / 141 16.6 / 16.6 Dextrose 5% 250 ML @ 2 MCG/KG/MIN 11.51 mls/hr IVC CONT [facility] Rx#: [id number] FentaNYL (PF) 1,000 MCG 35 / 35 100 / 100 30.6 / 30.6 In 0.9 % Sodium Chloride 80 ML @ 0.5 MCG/KG/HR 4. 35 mls/hr IVC CONT [facility] Rx #:[id number] Diprivan 1,000 mg In 100 125 / 125 100 / 100 21.8 / 21.8 ml @ 30 MCG/KG/MIN 15.66 mls/hr IVC .Q6H24M [facility] Rx #:[id number] Zosyn 3.375 GM In 100 / 100 100 / 100 100.0 / 100.0 Dextrose 5% (Minibag+) 100 ML 100 ML @ 25 mls/hr IVPB Q8H [facility] Rx#: [id number] Tube Feeding 256 / 256 446 / 446 196 / 196 Output: Urine 0 / 0 0 / 0 Urethral (Cotto) 0 / 0 0 / 0 Barbi 2036 / 2036 2484 / 2484 933 / 933 Catheter 25 / 25 0 / 0 Other: Stool Size Smear Stool Consistency soft Stool Characteristics Pasty Stool Color Brown Blood Glucose* 161 - General Appearance General appearance: Present: well-developed, well-nourished, appears started age , sedated on ventilator, intubated EENT: Present: ATNC, mucous membranes dry Additional Comments: Mottling noted on tip of nose and auricular tubercle of the ear. Additional Comments: diminished sounds Cardiology: Present: edema (3+ bilateral pitting LE edema), regular rate, regular rhythm Dialysis Vascular Access: Venous Catheter (right IJ) Gastrointestinal: Present: no tenderness, no guarding Integumentary: Present: no rash, warm and dry Additional Comments: mottling of tip of nose and auricular tubercle of ear Additional Comments: unable to assess as patient remains intubated. Musculoskeletal: Present: no deformities, no erythema - Lab 05/19/16 08:30 05/19/16 06:10 Most recent lab results ABG pH 7.23 pH Units (7.32-7.45) L 05/19/16 06:20 ABG pCO2 69 mmHg (35-45) H 05/19/16 06:20 ABG pO2 67 mmHg (85-104) L 05/19/16 06:20 ABG HCO3 28.9 mEQ/L (21-27) H 05/19/16 06:20 ABG O2 Saturation 89 % (95-98) L 05/19/16 06:20 Calcium 8.4 mg/dL (8.6-10.8) L 05/19/16 06:10 Phosphorus 4.7 mg/dL (2.3-4.7) 05/16/16 04:10 Magnesium 2.0 mg/dL (1.6-2.6) 05/15/16 03:45 Urine Creatinine 126 mg/dL 05/13/16 09:12 Urine Sodium 29.0 mEq/L 05/13/16 09:12 Consult Discharge Plan - Plan Referrals: Peña Barber MD [Primary Care Provider] -
[2016-05-19] MEDS ORDERED: Vancomycin 1,500 MG in D5% in Water 250 ML IVPB SCH (12:00)
[2016-05-19] MEDS: Calcium Chloride 4,000 MG in 0.9 % Sodium Chloride 1,000 ML CRRT SCH ×2 (12:01→16:59)
--- NOTE | 2016-05-19 12:18 | Event Note ---
Date of Encounter: 05/19/16 Time of Encounter: 12:00 - Cardiology Event Note Discussed and reviewed with Dr. Tijerina, recommend continue Amiodarone 200mg PO BID for 1 week total and then decrease to 200mg PO daily and consider Coumadin for AC if deemed appropriate based on hospital course. Re-consult PRN.
[2016-05-19] MEDS ORDERED: Vancomycin 1,500 MG in D5% in Water 250 ML IVPB ONE (13:00)
[2016-05-19] MEDS: Norepinephrine 4 MG in D5% in Water 250 ML IVC SCH ×2 (13:45→21:31)
[2016-05-19 13:47] LABS: Hematocrit 43.8 % (37.5-50.1); Hemoglobin 14.2 g/dL (12.9-16.9); Immature Platelets 23.1 % (1.1-6.1); Mean Corpuscular HGB Conc 32.4 g/dL (31.6-35.5); Mean Corpuscular Hemoglobin 31.1 pg (28.0-33.3); Mean Corpuscular Volume 95.8 fL (83.0-100.0); Mean Platelet Volume 12.9 fL (9.4-12.4); Red Blood Count 4.57 M/mcL (4.19-5.50)
[2016-05-19 13:58] LABS: Calcium 6.7 mg/dL (8.6-10.8)
[2016-05-19] MEDS ORDERED: Calcium Gluconate 2,000 MG in D5% in Water 100 ML IVPB ONE (15:24)
--- NOTE | 2016-05-19 16:10 | Palliative - Consult Note ---
Date of Encounter: 05/19/16 Time of Encounter: 14:00 - Assessment and Plan (1) Dyspnea Current Visit: Yes Status: Acute Assessment and plan: He remains on ventilator support. Monitor Qualifiers: Dyspnea type: unspecified Qualified Code(s): R06.00 - Dyspnea, unspecified (2) Counseling regarding advanced care planning and goals of care Current Visit: Yes Status: Acute Assessment and plan: Met with Pt Danielle at bedside. She states that pt completed [facility] and those are on record here. Discussed goals of care and code status. At this point, Danielle desires to continue pt be full code, aware that it is unlikely to survive a code blue. Discussed that he has already been on the vent 8 days, and early-mid week if unable to wean, will need to discuss possible tank terminal gauger vent/trach and nutritional issues. stated "no need to discuss this now - we still have time and will take things one day at a time". did continue to express grief over losing son 5 years ago and discussed donating his organs. She states she knows her 's situation is very different. Will continue to follow. (3) COPD (chronic obstructive pulmonary disease) Current Visit: No Status: Chronic Qualifiers: COPD type: emphysema Emphysema type: unspecified Qualified Code(s): J43.9 - Emphysema, unspecified (4) JAIDEN (acute kidney injury) Current Visit: Yes Status: Acute (5) Severe sepsis Current Visit: Yes Status: Acute Palliative-CN HPI - Data of Consult Consult date: 05/19/16 Requesting Physician: Erik Medina DO Primary Care Provider: Peña Barber MD - Consult Narrative History of present illness: Mr. Rothman is a 71 year old male with history of COPD on home oxygen who has been admitted initially for increasing shortness of breath. He was intubated and has been in the ICU for 8 days with respiratory failure, acute kidney injury , and sepsis. Patient has been on renal replacement therapy for the last several days, minimal urine output noted. Over the last 36 hours, WBC has increased and he has been hypothermic. ABG's remain marginal and have not improved much over the last several days. Antibiotic therapy was changed this am, and cultures have been redrawn to r/o infection. Femerol line will be d/c' d today as well. Dr. Sarabjit Ko - nephrology following pt closely. Palliative care was consulted to assist with goals of care and code status discussion. CC: Erik Medina, DO Past Med Surg Social Fam HX - Past Medical History Medical history: COPD, coronary artery disease, GERD, hyperlipidemia, hypertension, myocardial infarction, pulmonary embolus Psychiatric history: no psych history - Past Surgical History Surgical History: angioplasty/stent - Social History Smoking Status: Current every day smoker Smokeless Tobacco Status: No Alcohol use: none Drug use: none - Family History Mother Living Status: Hx Family Cardiac Disorders: No Hx Family Respiratory Disorders: Yes Hx Family Cancer: No Hx Family GI Disorders: No Hx Family Endocrine Disorder: No Hx Family Neuromuscular Disorders: No Hx Family Neurologic Disorders: Yes Hx Family HEENT Disorders: No Hx Family Autoimmune Disorders: No Father Living Status: Hx Family Cardiac Disorders: Yes Hx Family Respiratory Disorders: No Hx Family Cancer: No Hx Family GI Disorders: Yes Hx Family Endocrine Disorder: Yes Hx Family Neuromuscular Disorders: No Hx Family Neurologic Disorders: No Hx Family HEENT Disorders: No Hx Family Autoimmune Disorders: No Medications and Allergies Aspirin 81 mg PO DAILY 10/05/14 [History] Bumetanide [Bumex] 0.5 mg PO BID 10/05/14 [History] Clopidogrel [Plavix] 75 mg PO DAILY 10/05/14 [History] Isosorbide MONOnitrate (24 HR) [Imdur] 60 mg PO DAILY 10/05/14 [History] Losartan [Cozaar] 25 mg PO DAILY 10/05/14 [History] Metoprolol [Lopressor] 25 mg PO BID 10/05/14 [History] Nitroglycerin 0.4 mg SL Q5MIN PRN 10/05/14 [History] OxyCODONE/APAP 10/325 [Percocet 10/325] 1 tab PO Q6HR PRN 10/05/14 [History] Pravastatin Sodium [Pravachol] 40 mg PO DAILY 10/05/14 [History] Albuterol Sulfate [Proair Hfa] 2 puff IH BID 06/17/15 [History] Budesonide/Formoterol 160/4.5 [Symbicort 160/4.5] 2 puff ID BID 06/17/15 [ History] PredniSONE 10 mg PO DAILY #33 tablet 05/03/16 [Rx] Allergies furosemide [From Lasix] Allergy (Verified 05/12/16 07:05) Chest Pain hydrochlorothiazide Allergy (Verified 05/12/16 07:05) Chest Pain Sulfa (Sulfonamide Antibiotics) Allergy (Verified 05/12/16 07:05) Hives Hydromorphone [From Dilaudid] Adverse Reaction (Verified 05/12/16 07:05) Nausea ROS unobtainable: due to mental status Palliative Care-Exam - Constitutional Vitals: Temp Pulse Resp BP Pulse Ox 97.5 F L 72 20 91/49 98 05/19/16 09:00 05/19/16 14:00 05/19/16 14:00 05/19/16 14:00 05/19/16 14:00 General appearance: Present: no acute distress - Head Head Exam: Present: normal inspection, normocephalic - Eye Additional comments: Pupils sluggish to respond - ENT Additional comments: Right ear/tip of nose cyanotic - Respiratory Respiratory exam: Present: decreased breath sounds, CTAB - Cardiovascular Cardiovascular exam: Present: +S1, +S2 - GI/Abdominal Exam GI/Abdominal exam: Present: normal bowel sounds, soft - Catheter Type: Urethral (Cotto) - Extremities Exam Extremities exam: Present: normal capillary refill, normal inspection - Neurological Exam Additional comments: Sedation has been turned off. Currently moves head occasionally. No response to verbal or tactile stimuli - Skin Skin exam: Present: dry, pallor, warm Internal Medicine - CN: Reslt - Labs CBC & Chem 7: 05/19/16 13:37 05/19/16 13:37 Labs: Short CBC 05/19/16 05/19/16 05/19/16 Range/Units 06:10 08:30 13:37 WBC 18.7 H D 18.6 H 20.0 H (4.3-11.1) K/mcL Hgb 15.0 15.0 14.2 (12.9-16.9) g/dL Hct 46.5 47.3 43.8 (37.5-50.1) % Plt Count 76 L 70 L 68 L (140-400) K/mcL Neutrophils # 16.7 H (1.6-8.9) K/mcL BMP 05/19/16 05/19/16 06:10 13:37 Sodium 136 135 L Potassium 5.4 H 6.0 H Chloride 102 100 Carbon Dioxide 28 26 BUN 49 H 53 H Creatinine 1.44 H 1.98 H Glucose 166 H 219 H Calcium 8.4 L 6.7 L D - ABG Interpretation ABG results: ABG ABG pH 7.23 pH Units (7.32-7.45) L 05/19/16 06:20 ABG pCO2 69 mmHg (35-45) H 05/19/16 06:20 ABG pO2 67 mmHg (85-104) L 05/19/16 06:20 ABG O2 Saturation 89 % (95-98) L 05/19/16 06:20 PT/INR, D-dimer PT 20.9 Seconds (9.4-12.1) H D 05/18/16 03:41 - Impressions Impressions Chest X-Ray 05/19/16 08:24 IMPRESSION: Some interval improvement in right basilar infiltrate with small effusion. Otherwise stable chest. D/ / Ramone Joy MD / Ramone Joy MD Interpreting Provider: Ramone Joy MD Chest X-Ray 05/19/16 15:12 IMPRESSION: Apical lucencies reflecting blebs or bulla formation. Lines and tubes described. No pneumothorax. Airspace disease of the right lung base. Consideration should be given to either asymmetric edema or infiltrate. Correlation with auscultation recommended. D/ / Bernardino Sen MD / Bernardino Sen MD Interpreting Provider: Bernardino Sen MD Consult Discharge Plan - Plan Referrals: Peña Barber MD [Primary Care Provider] - Palliative Quality Palliative Quality: Screen for Code Status: Yes, Screen for Goals of Care: Yes, Screen for Pain: NA, If Pain Regimen Started, Initiate Bowel Regimen: NA, Screen for Nausea/Vomitting: NA Code Status: 05/12/16 09:25 Resuscitation Status: Active [RES] Routine Comment: Resuscitation Status: Full Code
[2016-05-19] MEDS: Calcium Gluconate 2,000 MG in D5% in Water 100 ML IVPB PRN ×2 (16:11→20:05)
[2016-05-19] MEDS: *HR* Heparin 5,000 UNIT/ML VIAL SQ SCH ×2 (16:19→23:11)
[2016-05-19] MEDS ORDERED: PrismaSATE BGK 4/2.5 5,000 ML CRRT SCH ×2 (17:45)
[2016-05-19 18:23] LABS: ABG HCO3 23.2 mEQ/L (21-27); ABG Oxygen Saturation 92 % (95-98); ABG PCO2 65 mmHg (35-45); ABG PO2 80 mmHg (85-104); ABG TCO2 25.2 mEq/L (20-26); Blood Gas FiO2 50 %
[2016-05-19 18:25] LABS: ABG PH 7.16 pH Units (7.32-7.45)
[2016-05-19 20:36] LABS: ABG HCO3 23.9 mEQ/L (21-27); ABG Oxygen Saturation 88 % (95-98); ABG PO2 75 mmHg (85-104); ABG TCO2 26.3 mEq/L (20-26); Blood Gas FiO2 50 %
[2016-05-19 20:37] LABS: ABG PCO2 77 mmHg (35-45)
[2016-05-19] MEDS ORDERED: *HR* Heparin 5,000 UNIT/ML VIAL ONE (21:24)
[2016-05-19] MEDS ORDERED: Vasopressin 40 UNIT in D5% in Water 100 ML IVC SCH (22:31)
[2016-05-19 22:34] LABS: ABG Base Excess -11.1 mEq/L (-2.0 to 3.0); ABG HCO3 20.6 mEQ/L (21-27); ABG Oxygen Saturation 87 % (95-98); ABG PO2 74 mmHg (85-104); ABG TCO2 22.8 mEq/L (20-26)
[2016-05-19 22:35] LABS: Blood Gas FiO2 50 %
[2016-05-19 22:36] LABS: ABG PCO2 71 mmHg (35-45); ABG PH 7.07 pH Units (7.32-7.45)
[2016-05-19] MEDS ORDERED: 0.9 % Sodium Chloride 2,000 ML ONE (23:00)
[2016-05-19] MEDS: 0.9 % Sodium Chloride 1,000 ML PRIME SCH (23:12)
[2016-05-19 23:17] LABS: Potassium 7.2 mEq/L (3.5-4.5)
[2016-05-19] MEDS ORDERED: PRISMASATE BGK CRRT SCH ×2 (23:30)
[2016-05-19] MEDS ORDERED: Sodium Bicarbonate 150 MEQ in D5% in Water 1,000 ML IVC SCH (23:30)
[2016-05-20] MEDS: Norepinephrine 4 MG in D5% in Water 250 ML IVC SCH (00:57)
[2016-05-20] MEDS ORDERED: Acetylcysteine 10% 2 ML INHSOL IH ONE (01:00)
[2016-05-20] MEDS: Ipratropium/Albuterol Neb 3 ML IH SCH ×2 (01:05→05:07)
--- NOTE | 2016-05-20 01:11 | Procedure Note ---
Date of procedure: 05/20/16 Pre-op diagnosis: Hypotension Post-op diagnosis: same Procedure: Informed consent obtained by phone from patient's spouse. Final timeout performed and patient was identified by full name and date of . The site and procedure were verified. The site was prepped and draped in the usual sterile fashion. Right radial artery was identified by ultrasound. An arterial catheter was inserted with visualization using ultrasound. A flash of blood was noted in the wire was advanced into the artery. The catheter was then advanced and pulsatile blood flow was noted. Catheter was then secured with 3-0 silk and dressed in sterile Tegaderm. Anesthesia: IV sedation Surgeon: Erik Medina Estimated blood loss (cc): 0 IV fluids (cc): 0 Condition: critical Disposition: ICU
[2016-05-20 01:13] LABS: Hematocrit 44.1 % (37.5-50.1); Hemoglobin 13.9 g/dL (12.9-16.9); Mean Corpuscular HGB Conc 31.5 g/dL (31.6-35.5); Mean Corpuscular Hemoglobin 30.7 pg (28.0-33.3); Mean Corpuscular Volume 97.4 fL (83.0-100.0); Mean Platelet Volume 13.8 fL (9.4-12.4); Nucleated Red Blood Cells 0.5 /100 WBC (0); Red Blood Count 4.53 M/mcL (4.19-5.50); Red Cell Distribution Width 13.9 % (11.5-14.5)
[2016-05-20 01:16] LABS: Platelet Count 60 K/mcL (140-400)
--- NOTE | 2016-05-20 01:19 | Procedure Note ---
Date of procedure: 05/20/16 Pre-op diagnosis: Hypercapneic Respiratory Failure Post-op diagnosis: same Procedure: Informed consent was obtained by phone from the patient's spouse. Final timeout was performed the patient was identified by full name and date of . Procedure and site were verified. The bronchoscope was introduced via the endotracheal tube. The tana was easily visualized and the scope was advanced on the right mainstem bronchus. Copious white, thick mucus was noted. The scope was advanced down the left mainstem bronchus with the same findings. Attempts were made to suction some mucus withouy success. N- acetylcysteine was then injected the airways in 6 aliquots of 1 mL into each segmental bronchus. Same bronchi were then irrigated with small amounts of normal saline. Another airway survey was performed and a second attempt was made to suction mucus. A moderate amount of mucus was suctioned from the airways. A repeat airway survey showed decreased quantity of mucus in the proximal airways. No discrete large proximal mucous plug was identified. The patient tolerated the procedure well hemodynamically. The scope was then withdrawn and the procedure was completed without evidence of complication. Anesthesia: IV sedation Surgeon: Erik Medina Estimated blood loss (cc): 0 IV fluids (cc): 0 Pathology: none sent Condition: critical Disposition: ICU
[2016-05-20 01:39] LABS: Large Platelets Present (Not Present); Lymphocytes # 1.8 K/mcL (0.6-4.6); Monocytes # 1.8 K/mcL (0.0-1.3); Neutrophils # 25.1 K/mcL (1.6-8.9); Platelet Estimate Decreased (Normal); Reactive Lymphocytes Present (Not Present); Toxic Granulation Present (Not Present)
[2016-05-20 01:44] VITALS: BP 81/39
[2016-05-20] MEDS ORDERED: *HR* LORazepam 2 MG/ML VIAL IVP PRN (01:50)
--- NOTE | 2016-05-20 01:57 | Event Note ---
Date of Encounter: 05/20/16 Time of Encounter: 00:00 Notified by nursing staff of continued hypercapnia in spite of changing them with ventilator settings. Continue patient's bedside and patient hypotensive despite high-dose infusions of vasoactive medications. Left radial A-line placed. End-tidal capnography placed in end-tidal CO2 noted to be significantly different from arterial PCO2. Considered and an operation is possible cause of discordance. Performed bronchoscopy for clearance of possible copious secretions. (See procedure note). During procedure patient noted to have karthikeyan hematochezia. Called patient's and discussed patient' s progression, case, and prognosis. Patient's indicated over the phone that she she was considering changing CODE STATUS to DNR. Patient's arrived at bedside. Had discussion with patient's regarding prognosis. Patient's demonstrated understanding of multiple organ system dysfunctions. Patient's was quite karthikeyan about his prognosis prognosis and demonstrated acceptance. Patient's decided to change CODE STATUS to DNR. Additionally, she expressed a desire to transition goals of care to comfort upon the arrival of remaining family members. Consents changed DNR. We will plan for terminal extubation when further family members arrive and discretion of the patient's .
[2016-05-20] MEDS ORDERED: Aminoglycoside Consult 1 EACH MC ONE (04:32)
[2016-05-22 15:56] LABS: Acinetobacter baumannii by PCR Not Detected (Not Detect); Candida glabrata by PCR Not Detected (Not Detect); Candida krusei by PCR Not Detected (Not Detect); Candida parapsilosis by PCR Not Detected (Not Detect); Candida tropicalis by PCR Not Detected (Not Detect); Enterococcus by PCR Not Detected (Not Detect); Escherichia coli by PCR Not Detected (Not Detect); Klebsiella oxytoca by PCR Not Detected (Not Detect); Klebsiella pneumoniae by PCR Not Detected (Not Detect); Pseudomonas aeruginosa by PCR Not Detected (Not Detect); Serratia marcescens by PCR Not Detected (Not Detect); Staphylococcus aureus by PCR Not Detected (Not Detect); Streptococcus agalactiae(B)PCR Not Detected (Not Detect); Streptococcus by PCR Not Detected (Not Detect); Streptococcus pneumoniae PCR Not Detected (Not Detect); Streptococcus pyogenes (A) PCR Not Detected (Not Detect)
[2016-05-22 15:57] LABS: Candida albicans by PCR ***DETECTED*** (Not Detect)
--- NOTE | 2016-06-08 00:22 | Death Note ---
Discharge Sum: Summary - Date and Time Date of admission: 05/12/16 08:31 Date of : 05/20/16 Time of : 05:12 - Summary Details: THe pt was admitted for hospital acquired pneumonia. His hospital course was complicated by acute kidney injury with need for HD, atrial fibrillation, refractor hypotension, thrombocytonpenia. On the day of May 19, demonstrated worsening hypotension and poor tolerance of DIESEL LOCOM[employer]IVE [employer]ER/HD. Hypercanpneic respiratory failure progressed. Despite aggressive ventilation strategy, hypercapnea persisted and respiratory acidosis persisted. NaHCO3 gtt was initiated but hypotension was unresponsive to all interventions and vasopressor support was continuously escalated. Pt's was contacted and goals of care discussion was initiated. She stated that the pt's preference would be to avoid prolonged aggressive invasive intervention. She expressed a desire to re-evaluate his condition. Pt's and family arrived at the pt's bedside on the evening of May 19. At that time, further discussion of goals of care was conducted. They agreed that continuation of the current therapeutic course would be against the pt's wishes. It was determined that a comfort strategy should be adopted. All invasive and curative treatments were discontinued. Therapy was then then directed at comfort. The pt was terminally extubated without intent to reintubate. Opiate gtt was continued and titrated to respiratory and comfort. The pt at 0512hrs on May 20, 2016. - Additional Data Attending physician: Erik Medina DO Discharge Sum: Diag - PCOD Probable Cause of : Pneumonia Discharge Sum: Prov - Provider Primary care physician: Peña Barber MD Admitting clinician: Jannette Michaels Attending physician on admission: Jannette Michaels Consults: 05/14/16 06:02 Consult to Nephrology [CONS] Routine Consulting Provider: Kidney Lashell/DAVID/NICOLE/CALE Reason for Consult: no known hx of CKD, now with JAIDEN from septic shock Call Completed: Yes 05/16/16 09:44 Consult to Cardiology [CONS] Stat Comment: Consulting Provider: Cardiology Lashell Reason for Consult: A. flutter RVR on amniodarone drip. Time Notified: 09:44 Call Completed: Yes 05/17/16 13:30 Consult to Materials Handling Equipment Operator [CONS] Routine Reason for SW Consult: needs help with FMLA paperwork 05/19/16 08:24 Consult to Palliative Care [CONS] Routine Comment: Consulting Provider: Palliative Care Lashell 05/19/16 13:43 PICC LINE [Consult to Invasive Line Access Team] [CONS] Routine Reason for Consult: Limited vascular access. Must remove existing femoral central line. Line Type: PICC PICC line indications: Limited vascular access Time Notified: 13:45 Call Completed: Yes 05/19/16 15:44 Consult to Invasive Line Access Team [CONS] Routine Reason for Consult: Picc Line Insertion-Need alternate access in order to dc femoral line Line Type: PICC
== END 2016-05-20 04:33 | disposition expired | DRG 870 ==
LOC: EMEROO 06:50 → ICNU 08:31
PROVIDERS: ADMIT Internal Medicine Pulmonary Disease; ATTEND Internal Medicine Pulmonary Disease